=== PATIENT | female | born 1995 | race Caucasian/White ===

== ENCOUNTER 2021-12-13 06:39 | Inpatient (IN) | payer OTHER, SELFPAY ==
[2021-12-13] VITALS (62 sets, daily range): BP systolic 81–125; BP diastolic 42–88; PULSE 86–180; RESP 14–18; TEMP 35.9–36.9; O2SAT 95–100; BMI 31.6
--- NOTE | 2021-12-13 08:05 | LDADM ---
This patient, Georgina Menezes, was admitted to Labor/Delivery/Recovery 105 on 12/13/21 at 06:39. Plans for labor, pain management and were discussed with patient. Patient/family oriented to hospital policies and general routines including ID bracelet, bed and alarms, visiting hours, pain management, procedures, bathroom and other care routines, personal items, smoking policy, room service/diet and guest tray routines, infant security routines, and visiting hours. Patient/Family are encouraged to report perceived risks to care and to ask questions if they do not understand what they are told or what they should do. See OBIX for further documentation.
--- NOTE | 2021-12-13 08:06 | PM.IMHP ---
H&P: HPI History of Present Illness Date/Time: 12/13/21 08:06 Chief Complaint: Intrauterine at term Narrative: 26 yo at 35w2d who presents with SROM. Pt reports SROM around 0430. She reports regular contractions since that time. 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 Pt has limited use of her leg. Due to this, pt is concerned for the ability to have a vaginal delivery. Pt requests a primary delivery. Review of Systems Cardiovascular: Cardiovascular: Denies chest pain, Denies leg edema, Denies palpitations, Denies dyspnea and Denies dyspnea on exertion Respiratory: Respiratory: Denies cough, Denies dyspnea and Denies dyspnea on exertion Gastrointestinal: Gastrointestinal: Denies abdominal pain, Denies constipation, Denies diarrhea, Denies nausea and Denies vomiting Genitourinary: Genitourinary: Denies hematuria, Denies urinary frequency, Denies dysuria, Denies pelvic pain, Denies urinary incontinence and Denies vaginal discharge Neurologic: Reports system reviewed and no additional complaints, except as documented Psychiatric: Psychiatric: Reports no additional psychiatric complaints Endocrine: Endocrine: Denies palpitations PMFSH Social History Social History Smoking status: Never smoker Second hand tobacco smoke exposure: No Substance use: never Spiritual care concerns: No Meds Home Medications and Allergies Home Medications Medication Instructions Recorded Confirmed Type No Home Medications 12/13/21 12/13/21 History Allergies Allergy/AdvReac Type Severity Reaction Status Date / Time ceftazidime Allergy Hives Verified 12/13/21 07:51 Exam Const: General: no acute distress Eyes: EOM: EOMs intact bilaterally Neck: Neck: supple Thyroid: thyroid normal Chest: Breast/axilla inspection: normal inspection of the breasts Breast/axilla palpation: normal palpation of the breasts, normal palpation of the axillae and no axillary lymphadenopathy Resp: Effort & Inspection: normal respiratory effort Auscultation: clear to auscultation bilaterally Cardio: Rate: regular rate Rhythm: regular rhythm GI: Inspection: non-distended and other (Gravid) GI Palp: Yes Soft to palpation, No Tenderness to palpation present (GI) and No Guarding due to palpation present (GI) Auscultation: normal bowel sounds : Speculum Exam - Vagina: No vaginal bleeding OB/external & speculum: external exam normal; No vaginal bleeding Skin: General skin exam: normal color and no rashes or lesions noted Neuro: Cognition (Neuro): normal cognition Speech: normal speech Extrem: General: normal to inspection Psych: Mental Status: mental status grossly normal Affect: normal affect Assessment and Plan Assessment and plan (1) Supervision of high risk , unspecified, third trimester: Code(s): O09.93 - Supervision of high risk , unspecified, third trimester Status: Acute Assessment and Plan: 26 yo G1 at 35w2d admit to L&D routine admission orders Rh + GBS unknown, will start antibiotics FHT cat 1 pt desires primary section recommended vaginal delivery, risks, benefits, alternatives discussed over several outpatient visits. Pt elects to proceed with primary section. (2) premature rupture of membranes: Code(s): O42.919 - premature rupture of membranes, unspecified as to length of time between rupture and onset of labor, unspecified trimester Status: Acute (3) History of osteosarcoma: Code(s): Z85.830 - Personal history of malignant neoplasm of bone Status: Acute
[2021-12-13] MEDS: LACTATED RINGERS 1,000 ML 125 ML IV CONT ×2 (08:38→11:02)
[2021-12-13 08:39] LABS: Basophils Percent Auto 0.4 % (0.2-1.2); Eosinophils Absolute Auto 0.1 K/mm3 (0-0.3); Eosinophils Percent Auto 0.5 % (0-4.4); Hematocrit 39.5 % (37.0-47.0); Hemoglobin 13.2 g/dL (12.0-15.0); Immature Granulocyte Absolute 0.05 K/mm3 (0.00-0.031); Immature Granulocyte Percent A 0.5 % (0-0.5); Immature Platelet Fraction Pct 25.7 % (0.9-11.2); Lymphocytes Absolute Auto 1.66 K/mm3 (0.9-3.2); Lymphocytes Percent Auto 15.5 % (18.3-44.2); Mean Corpuscular HGB Conc 33.4 g/dl (32-36); Mean Corpuscular Hemoglobin 32.3 pg (26-34); Mean Corpuscular Volume 96.6 fl (80-100); Mean Platelet Volume 13.1 fl (7.4-10.4); Monocytes Absolute Auto 0.8 K/mm3 (0.1-0.6); Monocytes Percent Auto 7.1 % (2.6-8.5); Neutrophils Absolute Auto 8.2 K/mm3 (1.3-6.7); Platelet Count Result 148 k/mm3 (150-375); Red Blood Count 4.09 M/mm3 (4.2-5.4); Red Cell Distribution Width 12.3 % (11.5-14.5); White Blood Count 10.7 K/mm3 (4.5-10.0)
[2021-12-13] MEDS: BETAMETHASONE SOD PHOS/ACETATE 30 MG/5 ML VIAL 12 MG IM (08:39)
[2021-12-13] MEDS: fentaNYL CITRATE INJ (*CRX) 100 MCG/2 ML VIAL (08:45)
[2021-12-13] MEDS: AMPICILLIN 2 GM/NS 100 ML 2 GM/100 ML BAG IVPB (09:18)
[2021-12-13] MEDS: ONDANSETRON INJ 4 MG/2 ML VIAL IV PUSH (09:25)
[2021-12-13] MEDS: fentaNYL CITRATE INJ (*CRX) 100 MCG/2 ML VIAL 50 MCG IV PUSH (11:00)
[2021-12-13] MEDS: GENTAMICIN SULFATE INJ 305 MG in DEXTROSE 5% 100 ML 107.63 MG IVPB (11:32)
--- NOTE | 2021-12-13 12:07 | WPDHPUPDATE1 ---
History and Physical Update Update Date/Time: 12/13/21 12:07 History and Physical has been reviewed, including an updated exam of the patient. There are NO changes in the patient's condition. Risks, benefits, and alternatives have been discussed and questions answered. Patient agrees to proceed with procedure.
[2021-12-13] MEDS: CLINDAMYCIN 900 MG/D5W 50 ML 900 MG/50 ML PIGGYBACK 50 MG IVPB (12:30)
[2021-12-13] MEDS: KETOROLAC 30 MG/ML VIAL (*BKC) IV PUSH ×2 (12:45→19:15)
--- NOTE | 2021-12-13 13:39 | W.PM.PROC2 ---
Procedure Note - Detailed Date of Procedure 12/13/21 Pre-op Diagnosis Labor Post-op Diagnosis same Procedure Performed Primary section Surgeon Harmeet Cool MD Anesthesia general Description of Procedure The patient was taken to the operating room. A combined spinal epidural anesthesia was placed. The patient was placed in a supine position with a slight left lateral tilt. A nuñez catheter was placed with return of clear urine. A Bovie grounding pad was placed. Surgical prep was performed and surgical drapes were placed. A surgical time out was performed. A Pfannenstiel skin incision was then made with the scalpel and carried through to the underlying layer of fascia. The fascia was then incised in the midline and the incision was extended laterally with the Weiner scissors. The superior aspect of the fascia was then grasped with the Debi clamps, elevated, and the underlying rectus muscles dissected off bluntly and sharply. Attention was then turned to the inferior aspect of this incision which, in a similar fashion, was grasped, tented up with the Debi clamps, and the rectus muscles dissected off both bluntly and sharply. The rectus muscles were then in the midline. The peritoneum was identified and entered bluntly. The peritoneal incision was then extended superiorly and inferiorly with good visualization of the bladder. The vesico-uterine serosa was identified and dissected to create a bladder flap. The bladder blade was reinserted. The uterus was inspected for rotation. A low-transverse uterine incision was made sharply with the scalpel and entry was made into the uterine cavity. The uterine incision was extended laterally bluntly. The bladder blade was removed and the fetus was delivered atraumatically. The umbilical cord was clamped twice and cut. The was handed off to the waiting staff. At the time of the delivery, the had good color, tone and grimace. The cried with minimal stimulation. A second segment of umbilical cord was clamped and cut for cord blood gasses. Cord blood was collected for determination of the blood type and for direct [place]. The placenta was delivered spontaneously without difficulty. The placenta appeared grossly normal and complete. The uterus was exteriorized and cleared of all clots and debris. The uterine incision was repaired using 0-Monocryl suture in a running fashion. A second layer of 0 Monocryl suture was used in an imbricating fashion to obtain excellent hemostasis and uterine strength. The uterine closure was inspected for hemostasis. The posterior aspect of the uterus and the broad ligaments were inspected and the posterior cul-de-sac cleared of fluid and blood clots. The uterine closure was again inspected and found to be hemostatic. The uterus was returned to the abdominal cavity. The pericolic gutters were inspected and were cleared of all blood clots and debris. The uterine closure was then re inspected to ensure hemostasis as were all subfascial tissues. The peritoneum was closed using 3-0 vicryl in a running fashion. The fascia was reapproximated with 0-vicryl in a running fashion. The subcutaneous tissue was irrigated and hemostasis achieved with electrocautery. It was reapproximated with 3-0 vicryl in a running fashion. The skin was closed with 4-0 vicryl. A sterile dressing was applied to the wound. The patient tolerated the procedure well. Sponge, lap and needle counts were correct times three. The patient was taken to recovery in stable condition and without anticipated complications. Estimated Blood Loss -615.0 Urine Output -200.0 Drains No Packing No Pathology none sent Complications No immediate complications Condition stable Disposition floor ( )
--- NOTE | 2021-12-13 13:43 | PM.OBDSVD ---
DS: Admitting Diagnosis Discharge Date 12/15/21 Admitting Diagnosis intrauterine at term PPROM at 35w OB - DS: Summary OB Procedures : None OB Procedures Intrapartum: OB Procedures: : None Peripartum Data Infant Delivery Method: Section Laceration Description: None Procedures: Procedures Operation Date: 12/13/21 12:00 <No data on this case meets the specified criteria> complications: none Status at Discharge Functional status at discharge: independent ambulation Overall status at discharge: patient is back to baseline Time Spent with Patient Time attestation: Total time spent providing and/or coordinating discharge services: Time spent: Less than 30 minutes DS: Data Data Completed and Pending Pending studies at discharge: Pending at discharge 12/13/21 12:43 Surgical [PTH] Routine Labs on day of discharge: Labs from last 24 hours 12/13/21 12/13/21 12/13/21 08:21 08:21 08:21 WBC 10.7 H RBC 4.09 L Hgb 13.2 Hct 39.5 MCV 96.6 MCH 32.3 MCHC 33.4 RDW 12.3 Plt Count 148 L MPV 13.1 H Immature Gran % (Auto) 0.5 Neut % (Auto) 76.0 H Lymph % (Auto) 15.5 L [place] % (Auto) 7.1 Eos % (Auto) 0.5 Baso % (Auto) 0.4 Lymph # (Auto) 1.66 [place] # (Auto) 0.8 H Eos # (Auto) 0.1 Baso # (Auto) 0.0 Abs Immat Gran (auto) 0.05 H Absolute Neuts (auto) 8.2 H Absolute Nucleated RBC 0.0 Nucleated RBC % 0.0 % Immature Plt Fraction 25.7 H RPR Pending Blood Type A Positive Antibody Screen Negative Discharge Plan Discharge Attending physician on discharge: Harmeet Cool Discharging Clinician: Ken Granados Patient Disposition: Home, Self-Care Activity: as tolerated and pelvic rest Diet: heart healthy Wound Care Instructions: follow printed instructions Discharge Instructions: Education: Mom and Baby Guide Given to: Mother Follow-Up: Call your delivering provider's office for an appointment to be seen in: 4 Weeks Mom [facility] baby [facility] the follow-up appointment. Appointment Date/Time: Thursday, December 16, 2021 at 9:00 am What to expect at your follow-up visit: Physical Assessment Call [phone] if you are unable to keep your appointment time. BREAST CARE: * Wear a snug supportive bra. * For engorgement discomfort: Breast Feeding: * Apply warm moist washcloths * Express milk as needed to relieve engorgement * Wear loose clothing Bottle Feeding: * May apply ice packs * For sore nipples: * Identify correct latch-on * Apply warm moist washcloths before and after nursing * Air dry nipples after nursing * May apply Lansinoh cream to nipples ABDOMINAL INCISION: (if applicable) * Allow incision to air dry * Do NOT use lotions for powders on your incision * When showering, allow soap and water to run over the incision, but do not wash incision PERINEAL CARE: * Until bleeding stops, use your solange bottle after urinating * Change your pad frequently throughout the day * You may take sitz baths several times a day (fill your bathtub with warm water and soak for 20 minutes.) Do NOT bathe in the water * No tub baths until seen by your physician - You may shower ACTIVITY: * Rest as much as possible. * Do not exercise or lift anything heavier than your baby (such as laundry or other children.) * Avoid stairs or driving as much as possible. * Do not put anything into the vagina. No douching, tampons, or sexual activity until seen by physician. NOTIFY PHYSICIAN IF YOU HAVE ANY QUESTIONS OR IF ANY OF THE FOLLOWING SYMPTOMS OCCUR: * If your episiotomy or incision becomes red, swollen, or more painful than what you have experienced in the hospital. * If your vaginal bleeding becomes foul smelling. * If y
[2021-12-13] MEDS: diphenhydrAMINE HCl INJ 50 MG/ML VIAL 25 MG IV PUSH (14:29)
--- NOTE | 2021-12-13 15:48 | PC.NURSE ---
Patient transferred to post room #286 per stretcher from labor and delivery. Support person present. Oriented to unit, room, information board, rooming in, admission packet and security measures. Patient verbalizes understanding.
[2021-12-13] MEDS: OXYTOCIN 30 UNITS/NS 500 ML 30 UNITS/500 ML BAG 125 UNITS IV CONT (17:24)
[2021-12-13] MEDS: DEXTROSE 5%/0.45% SOD CHL 1,000 ML 125 ML IV CONT (17:25)
[2021-12-13] MEDS: LORATADINE 10 MG TABLET PO (19:14)
[2021-12-13] MEDS: HYDROcodone/acetaminophen (*CRX) 10-325 MG TABLET 1 TAB PO (23:06)
[2021-12-14] MEDS: KETOROLAC 30 MG/ML VIAL (*BKC) IV PUSH (02:11)
[2021-12-14] MEDS: HYDROcodone/acetaminophen (*CRX) 10-325 MG TABLET 1 TAB PO ×6 (02:11→23:31)
[2021-12-14 04:30] VITALS: BP 97/55; PULSE 98; RESP 16; TEMP 37; O2SAT 96
[2021-12-14 05:54] LABS: Basophils Percent Auto 0.2 % (0.2-1.2); Hemoglobin 10.2 g/dL (12.0-15.0); Immature Granulocyte Absolute 0.11 K/mm3 (0.00-0.031); Immature Granulocyte Percent A 0.6 % (0-0.5); Immature Platelet Fraction Pct 28.2 % (0.9-11.2); Lymphocytes Absolute Auto 1.02 K/mm3 (0.9-3.2); Lymphocytes Percent Auto 5.4 % (18.3-44.2); Mean Corpuscular HGB Conc 32.9 g/dl (32-36); Mean Corpuscular Volume 100.3 fl (80-100); Mean Platelet Volume 13.9 fl (7.4-10.4); Monocytes Absolute Auto 1.4 K/mm3 (0.1-0.6); Monocytes Percent Auto 7.4 % (2.6-8.5); Neutrophils Absolute Auto 16.2 K/mm3 (1.3-6.7); Neutrophils Percent Auto 86.4 % (45.5-73.1); Platelet Count Result 164 k/mm3 (150-375); Red Blood Count 3.09 M/mm3 (4.2-5.4); Red Cell Distribution Width 12.6 % (11.5-14.5); White Blood Count 18.8 K/mm3 (4.5-10.0)
[2021-12-14] MEDS: DOCUSATE SODIUM 100 MG CAPSULE PO ×2 (07:19→20:27)
[2021-12-14] MEDS: MULTIVIT/MIN/PREN/FOL AC/IRON TABLET 1 TAB PO (07:19)
[2021-12-14] MEDS: SIMETHICONE 80 MG TAB.CHEW PO (07:20)
[2021-12-14 07:21] VITALS: BP 90/49; PULSE 102; RESP 12; TEMP 36.4; O2SAT 96
[2021-12-14] MEDS: IBUPROFEN 600 MG TABLET PO ×3 (07:21→20:28)
--- NOTE | 2021-12-14 08:37 | P.PNOB_ITS ---
OB - PN: Subj Subjective Date/time seen: 12/14/21 08:37 Patient comments: no complaints and pain well controlled baby status: doing well OB - PN: Obj Data Labs CBC & Chem 7: 12/14/21 04:39 Labs: Laboratory Results - last 24 hr 12/13/21 12/13/21 12/14/21 08:21 08:21 04:39 WBC 10.7 H 18.8 H RBC 4.09 L 3.09 L Hgb 13.2 10.2 L D Hct 39.5 31.0 L MCV 96.6 100.3 H MCH 32.3 33.0 MCHC 33.4 32.9 RDW 12.3 12.6 Plt Count 148 L 164 MPV 13.1 H 13.9 H Immature Gran % (Auto) 0.5 0.6 H Neut % (Auto) 76.0 H 86.4 H Lymph % (Auto) 15.5 L 5.4 L [place] % (Auto) 7.1 7.4 Eos % (Auto) 0.5 0.0 Baso % (Auto) 0.4 0.2 Lymph # (Auto) 1.66 1.02 [place] # (Auto) 0.8 H 1.4 H Eos # (Auto) 0.1 0.0 Baso # (Auto) 0.0 0.0 Abs Immat Gran (auto) 0.05 H 0.11 H Absolute Neuts (auto) 8.2 H 16.2 H Absolute Nucleated RBC 0.0 0.0 Nucleated RBC % 0.0 0.0 % Immature Plt Fraction 25.7 H 28.2 H Blood Type A Positive Antibody Screen Negative OB - PN A/P Plan day: 1 Plan: routine care Comments: Will proceed with circumcision secondary to maternal choice Time Spent With Patient Time: Total time spent is greater than 50% in coordination of care (as documented) at patient's floor/unit and/or counseling patient: Time with patient: less than 15 minutes Review of Systems Review of Systems: All systems reviewed & are unremarkable except as noted in HPI and below Exam Const: General: no acute distress Eyes: General: appearance normal, both eyes and all related structures Neck: Neck: supple and no JVD Thyroid: thyroid normal Resp: Effort & Inspection: normal respiratory effort Auscultation: clear to auscultation bilaterally Cardio: Rate: regular rate Rhythm: regular rhythm GI: Inspection: normal to inspection and incision (Clean dry and intact) : General: Yes bladder normal to palpation External Female Exam: normal external appearance Speculum Exam - Vagina: normal vaginal discharge and No vaginal bleeding Speculum Exam - Cervix: nontender Bimanual exam- vagina & uterus: bladder normal to palpation and No Cervical tenderness present OB/external & speculum: No vaginal bleeding Skin: General skin exam: no rashes or lesions noted Extrem: General: normal to inspection and no edema Psych: Mental Status: mental status grossly normal Affect: normal affect
--- NOTE | 2021-12-14 10:31 | WPDANLDPN2 ---
Anes-Prog Note L&D Date/Time: 12/14/21 10:31 Comfortable throughout: section Neuraxial method: spinal Epidural/Spinal procedure site: clean & non-tender Neuro status: Neuro function grossly intact. Cardiovascular status: normal Respiratory status: normal Airway patency: baseline Mental status: baseline Post-Op hydration status: normal Vital Signs: Last Vital Signs Temp 36.4 C 12/14/21 07:21 Pulse 102 H 12/14/21 07:21 Resp 12 12/14/21 07:21 BP 90/49 L 12/14/21 07:21 Pulse Ox 96 12/14/21 07:21 Pain score (VAS): 2/10 I/O: Intake & Output 12/13/21 12/14/21 12/14/21 23:59 07:59 15:59 Intake Total 500 Output Total 475 300 Balance -475 200 Post-procedural complaints: none Patient feedback: Patient satisfied with anesthetic care.
--- NOTE | 2021-12-14 10:32 | WPDANLDNPN2 ---
Anes-Prog Note L&D-Neuraxial Date/Time: 12/14/21 10:32 Neuraxial medications: intrathecal PF morphine Opiod-related complaints: none Patient feedback: Patient satisfied with post-operative pain management.
[2021-12-14 20:30] VITALS: BP 98/54; PULSE 98; RESP 16; TEMP 36.7; O2SAT 97
[2021-12-15] MEDS: SIMETHICONE 80 MG TAB.CHEW PO (03:18)
[2021-12-15] MEDS: HYDROcodone/acetaminophen (*CRX) 10-325 MG TABLET 1 TAB PO ×2 (03:18→10:30)
[2021-12-15] MEDS: IBUPROFEN 600 MG TABLET PO ×2 (03:18→10:29)
--- NOTE | 2021-12-15 10:01 | PM.DS ---
DS: Admitting Diagnosis Discharge Date 12/15/21 Admitting Diagnosis 35 and 0.5 weeks with rupture membranes DS: Summary Hospital Course Hospital Course: The patient was admitted with spontaneous rupture membranes at 35 and half weeks . She underwent low-transverse section. Her postop course was unremarkable. The baby did well and was circumcised. She remained afebrile. She was up, voiding without difficulty, ambulating, generally without complaints. Time Spent with Patient Time attestation: Total time spent providing and/or coordinating discharge services: Exam Const: General: no acute distress Eyes: General: appearance normal, both eyes and all related structures Neck: Neck: supple and no JVD Thyroid: thyroid normal Resp: Effort & Inspection: normal respiratory effort Auscultation: clear to auscultation bilaterally Cardio: Rate: regular rate Rhythm: regular rhythm GI: Inspection: non-distended GI Palp: Yes Soft to palpation, No Tenderness to palpation present (GI) and No Guarding due to palpation present (GI) Auscultation: normal bowel sounds : General: Yes bladder normal to palpation External Female Exam: normal external appearance Speculum Exam - Vagina: normal vaginal discharge and No vaginal bleeding Speculum Exam - Cervix: nontender Bimanual exam- vagina & uterus: bladder normal to palpation and No Cervical tenderness present OB/external & speculum: No vaginal bleeding Skin: General skin exam: no rashes or lesions noted Extrem: General: normal to inspection and no edema Psych: Mental Status: mental status grossly normal Affect: normal affect DS: Data Data Completed and Pending Pending studies at discharge: Pending at discharge 12/13/21 12:43 Surgical [PTH] Routine Discharge Plan Discharge Attending physician on discharge: Harmeet Cool Discharging Clinician: Ken Granados Patient Disposition: Home, Self-Care Activity: as tolerated and pelvic rest Diet: heart healthy Wound Care Instructions: follow printed instructions Patient Instructions: Antibiotic Form, (DC) Stand Alone Forms: General Discharge Information Follow-up/Referrals: Harmeet Cool MD [Physician] - 4 Weeks Discharge Medications: New hydrocodone-acetaminophen 5-325 mg tablet 1 tablet PO Q6H PRN (Reason: pain) Qty: 28 RF: 0 Continued 28-800 mg-mcg Tablet 1 tablet PO DAILY RF: 0 Date of admission: 12/13/21 06:39 Primary Care Provider: YovaniLilly Admitting Provider: Harmeet Cool Attending physician on admission: Harmeet Cool Condition: Stable
--- NOTE | 2021-12-15 10:03 | PM.OBPNVD ---
OB - PN: Subj Subjective Date/time seen: 12/15/21 10:03 Patient comments: no complaints and pain well controlled baby status: doing well and nursing well OB - PN: Obj Data Labs CBC & Chem 7: 12/14/21 04:39 OB - PN A/P Plan day: 2 Plan: routine care, discharge home and follow up 6 weeks (4 weeks) Time Spent With Patient Time: Total time spent is greater than 50% in coordination of care (as documented) at patient's floor/unit and/or counseling patient: Time with patient: less than 15 minutes Review of Systems Review of Systems: All systems reviewed & are unremarkable except as noted in HPI and below Exam Const: General: no acute distress Eyes: General: appearance normal, both eyes and all related structures Neck: Neck: supple and no JVD Thyroid: thyroid normal Resp: Effort & Inspection: normal respiratory effort Auscultation: clear to auscultation bilaterally Cardio: Rate: regular rate Rhythm: regular rhythm GI: Inspection: non-distended GI Palp: Yes Soft to palpation, No Tenderness to palpation present (GI) and No Guarding due to palpation present (GI) Auscultation: normal bowel sounds : General: Yes bladder normal to palpation External Female Exam: normal external appearance Speculum Exam - Vagina: normal vaginal discharge and No vaginal bleeding Speculum Exam - Cervix: nontender Bimanual exam- vagina & uterus: bladder normal to palpation and No Cervical tenderness present OB/external & speculum: No vaginal bleeding Skin: General skin exam: no rashes or lesions noted Extrem: General: normal to inspection and no edema Psych: Mental Status: mental status grossly normal Affect: normal affect
[2021-12-15 10:28] VITALS: BP 105/60; PULSE 98; RESP 16; TEMP 36.4; O2SAT 97
[2021-12-15] MEDS: MULTIVIT/MIN/PREN/FOL AC/IRON TABLET 1 TAB PO (10:28)
[2021-12-15] MEDS: DOCUSATE SODIUM 100 MG CAPSULE PO (10:28)
[2021-12-15] MEDS: MEASLES,MUMPS,RUBELLA VACCINE 0.5 ML VIAL SUB-Q (14:32)
--- NOTE | 2021-12-15 17:02 | PC.NURSE ---
1100 Patient viewed the discharge video Mother & Baby Care, The First Two Weeks . Patient was given the opportunity and encouraged to ask questions. Patient verbalized understanding of information shared and has been given the mother/baby guide for home reference.
[2021-12-16 09:03] VITALS: BP 115/73; PULSE 102; RESP 20; TEMP 36.6; O2SAT 99
[2021-12-16 11:59] LABS: Rapid Plasma Reagin Non-Reactive (NonReactive)
== END 2021-12-15 14:45 | disposition home or self-care (01) | DRG 540 ==
LOC: ANHLDR 13:51 → ANHOB2 12-15 12:13 → ANHLDR 12-17 09:35 → ANHOB2 12-17 09:35
PROVIDERS: Admitting Provider Student in an Organized Health Care Education/Training Program; PCP Nurse Practitioner Adult Health; Visit Provider Obstetrics & Gynecology
PROC: 10D00Z1 Extraction of Products of Conception, Low, Open Approach (ICD-10-PCS; CPT 59514; principal; 2021-12-13 12:00)
DX: O42.913 Preterm premature rupture of membranes, unspecified as to length of time between rupture and onset of labor, third trimester (principal); O76 Abnormality in fetal heart rate and rhythm complicating labor and delivery; O69.81X0 Labor and delivery complicated by cord around neck, without compression, not applicable or unspecified; Z85.830 Personal history of malignant neoplasm of bone; Z3A.35 35 weeks gestation of pregnancy; Z37.0 Single live birth
CPT/HCPCS: 36415; 84112; 85025; 85055; 86592; 86850; 86900; 86901; 88307; 90710; A9270; J0131; J0290; J0702; J1200; J1580; J1885; J2274; J2370; J2405; J2590; J3010; J7120

== ENCOUNTER 2021-12-19 12:16 | Inpatient (IN) | payer OTHER, SELFPAY ==
[2021-12-19] VITALS (9 sets, daily range): BP systolic 100–124; BP diastolic 66–85; PULSE 89–119; RESP 14–25; TEMP 36.6; O2SAT 94–100; BMI 29.2
--- NOTE | ~2021-12-19 | CT_ITS ---
EXAMINATION: CTA chest PE protocol EXAM DATE: 12/19/2021 14:10 INDICATION: shortness of breath, post . TECHNIQUE: Spiral CTA of the chest (pulmonary arteries) was performed with 100 cc Omnipaque 350 intr avenous contrast injection. Images were acquired during the pulmonary arterial phase. Coronal maxi mum intensity projection 3D-reconstructions were created by the technologist on dedicated workstation . Axial, coronal and sagittal reformatted images were reviewed. The dose-length product (DLP) for t his examination was 314.23 mGy-cm. The exposure was tailored according to patient size (auto mA exp osure control), and iterative reconstruction (ASIR) was used as additional dose reduction technique. There is no prior study for comparison. FINDINGS: Pulmonary arteries are well opacified and without intraluminal filling defects. No thora cic aortic dissection. The lungs are clear. Small to moderate right, small left pleural effusions. Mild cardiomegaly. Interlobular septal thickening and some groundglass density most consistent with mild pulmonary edema. Pneumonia not excludable. Tracheobronchial tree is patent. There is no media stinal, hilar or axillary lymphadenopathy. There is no pneumothorax. No evidence of coronary anders rial calcification. Cholecystectomy clips. There is thoracic spondylosis without osteoblastic or os teolytic lesions identified. IMPRESSION: 1. Findings consistent with mild CHF exacerbation. 2. No pulmonary emboli. Reviewed, dictated and finalized at location B. WELDER
--- NOTE | ~2021-12-19 | US_ITS ---
EXAMINATION: US venous doppler LE EXAM DATE: 12/20/2021 09:36 INDICATION: Bilateral leg edema. TECHNIQUE: Multiple grayscale, color flow and Doppler images of the lower extremity deep venous syste ms bilaterally were obtained and reviewed. There is no prior study for comparison. FINDINGS: Right side: The right common femoral, femoral and profunda veins demonstrate normal color flow, respi ratory variation, augmentation and compressibility. Compressibility, color flow confirmed within the right popliteal, posterior tibial, peroneal, and greater saphenous veins. Left side: The left common femoral, femoral and profunda veins demonstrate normal color flow, respira tory variation, augmentation and compressibility. Compressibility, color flow confirmed within the l eft popliteal, posterior tibial, peroneal, and greater saphenous veins. IMPRESSION: 1. No lower extremity deep venous thrombosis bilaterally. Reviewed, dictated and finalized at location B. D SALES EXECUTIVE
--- NOTE | ~2021-12-19 | XR_ITS ---
EXAMINATION: XR chest 2V DATE: 12/19/2021 12:37 INDICATION: Shortness of breath and chest pain one week . TECHNIQUE: frontal view of the chest was obtained. COMPARISON: Chest radiograph dated 05/18/2014 FINDINGS: Mild cardiomegaly. Increased interstitial pattern and streaky opacities in the bilateral lower lung z ones. Tiny bilateral pleural effusions with blunting at the posterior sulci. No pneumothorax. Cholec ystectomy clips in right upper quadrant. IMPRESSION: 1. Suggestion of mild congestive heart failure with mild cardiomegaly, mild pulmonary edema in the lo wer lung zones and tiny bilateral pleural effusions. Reviewed, dictated and finalized at location A. ER IMPRESSION: 1. Suggestion of mild congestive heart failure with mild cardiomegaly, mild pul monary edema in the lower lung zones and tiny bilateral pleural effusions.
--- NOTE | 2021-12-19 12:22 | ECG_ITS ---
Measurements Intervals Wright Rate: 115 P: 40 MD: 125 QRS: 23 QRSD: 78 T: 46 QT: 332 QTc: 460 Interpretive Statements SINUS TACHYCARDIA POSSIBLE LEFT ATRIAL ENLARGEMENT BORDERLINE R WAVE PROGRESSION, ANTERIOR LEADS BASELINE ARTIFACT- I, II, III, AVR, AVL, AVF, V1, V3-V6 ABNORMAL ECG Electronically Signed On 12-19-2021 12:40:39 OPERATION SPECIALIST by Pb Rangel D.O.
[2021-12-19 13:12] LABS: Basophils Absolute Auto 0.1 K/mm3 (0.0-0.1); Basophils Percent Auto 0.6 % (0.2-1.2); Eosinophils Absolute Auto 0.4 K/mm3 (0-0.3); Eosinophils Percent Auto 3.9 % (0-4.4); Hematocrit 33.2 % (37.0-47.0); Hemoglobin 10.8 g/dL (12.0-15.0); Immature Granulocyte Absolute 0.21 K/mm3 (0.00-0.031); Immature Granulocyte Percent A 2.1 % (0-0.5); Lymphocytes Percent Auto 14.1 % (18.3-44.2); Mean Corpuscular HGB Conc 32.5 g/dl (32-36); Mean Corpuscular Hemoglobin 32.9 pg (26-34); Mean Corpuscular Volume 101.2 fl (80-100); Mean Platelet Volume 12.1 fl (7.4-10.4); Monocytes Absolute Auto 0.7 K/mm3 (0.1-0.6); Monocytes Percent Auto 6.8 % (2.6-8.5); Neutrophils Absolute Auto 7.2 K/mm3 (1.3-6.7); Neutrophils Percent Auto 72.5 % (45.5-73.1); Platelet Count Result 245 k/mm3 (150-375); Red Blood Count 3.28 M/mm3 (4.2-5.4); Red Cell Distribution Width 13.2 % (11.5-14.5); White Blood Count 9.9 K/mm3 (4.5-10.0)
[2021-12-19 13:23] LABS: Lactic Acid Reflex 2.2 mmol/L (0.7-2.1)
[2021-12-19 13:24] LABS: Alanine Aminotransferase 20 U/L (4-35); Albumin Level 3.5 g/dL (3.5-5.1); Alkaline Phosphatase 84 U/L (38-126); Anion Gap 10 mmol/L (8-16); Aspartate Amino Transferase 18 U/L (14-36); Bilirubin,Total 0.3 mg/dL (0.2-1.3); Blood Urea Nitrogen 17 mg/dL (7-17); Calcium 8.8 mg/dL (8.4-10.2); Carbon Dioxide 26 mmol/L (22-30); Chloride 101 mmol/L (98-107); Estimated CRCL calculation 110 ml/min; Estimated Glomerular Filt Rate > 60; Glucose 91 mg/dL (65-110); Magnesium 1.4 mg/dL (1.6-2.3); Potassium 3.6 mmol/L (3.4-5.0); Sodium 137 mmol/L (137-145)
[2021-12-19 13:36] LABS: NT Pro B Type Natriuretic Pept 2360 pg/mL (5-100); Troponin I < 0.012 ng/mL (0.000-0.034)
[2021-12-19 13:38] LABS: Add Urine Microscopic? YES; Appearance Urine Clear (Clear); Bacteria Urine Trace /hpf; Bilirubin Urine Negative (Negative); Blood Urine 2+ (Negative); Color Urine Straw (Yellow); Glucose Urine UA Negative (Negative); Ketones Urine Negative (Negative); Leukocyte Esterase Ur Trace LEU/UL (Negative); Nitrate Urine Negative (Negative); Protein Urine Negative (Negative); RBC Urine 0-2 /hpf (0-2); Specific Grav Ur 1.006 (1.001-1.035); Squamous Epithelial Cell Urine Many /hpf (Few); Urobilinogen Urine Negative mg/dL (<2.0)
--- NOTE | 2021-12-19 14:34 | ED.GENADULT ---
HPI - General Adult General Chief complaint: Shortness of Breath/Dyspnea Stated complaint: sob after c -section last week Time Seen by Provider: 12/19/21 12:33 History of Present Illness HPI narrative: Patient is a 26-year-old female who presents the emergency department with chief complaint of shortness of breath. Patient states that she is about a week after a patient states that she feels as though her body is swollen and reports that she has shortness of breath worse with exertion. The patient reports that she had some tightness in her chest and fullness the patient states that she decided to come to the emergency department after she has been having continual tightness in her chest. Patient reports no prior history of congestive heart failure no prior history of cardiac disease. Related Data Home Medications Medication Instructions Recorded Confirmed 1 tablet PO DAILY 12/13/21 12/13/21 Allergies Allergy/AdvReac Type Severity Reaction Status Date / Time ceftazidime Allergy Hives Verified 12/13/21 07:51 Review of Systems Review of Systems: A 10 system review of systems was completed on the patient and is negative except for what is stated in the HPI. Nursing and ancillary documentation was reviewed. [facility] Social History Social History Smoking status: Never smoker Second hand tobacco smoke exposure: No Substance use: never Spiritual care concerns: No Exam Narrative: GENERAL: Well-appearing, well-nourished, and in no acute distress. HEAD: Normocephalic, atraumatic. EYES: PERRLA and EOMI. ENT: Nares clear, no rhinorrhea or epistaxis. Mucous membranes moist. NECK: Supple. CHEST: Clear to auscultation. No respiratory distress. HEART: Regular rate and rhythm. No murmur heard. Normal peripheral pulses. ABDOMEN: Soft, nontender, nondistended, normal active bowel sounds. EXTREMITIES: Normal range of motion. No edema. SKIN: Warm, dry, no rash. NEURO: No focal deficits. Alert and oriented x3. PSYCH: Normal mood and affect. Course Course Emergency Course: EKG sinus tachycardia rate of [address] elevation or ST depression Vital Signs Vital signs: Vital Signs Temperature 36.6 C 12/19/21 12:19 Pulse Rate 119 H 12/19/21 12:19 Respiratory Rate 25 H 12/19/21 12:19 Blood Pressure 124/72 12/19/21 12:19 Pulse Oximetry 100 12/19/21 12:19 Temperature 36.6 C 12/19/21 12:19 Pulse Rate 114 H 12/19/21 14:33 Respiratory Rate 14 12/19/21 14:33 Blood Pressure 108/69 12/19/21 14:33 Pulse Oximetry 97 12/19/21 14:33 Medical Decision Making Vital Signs Vital Signs: Vital Signs Temperature 36.6 C 12/19/21 12:19 Pulse Rate 119 H 12/19/21 12:19 Respiratory Rate 25 H 12/19/21 12:19 Blood Pressure 124/72 12/19/21 12:19 Pulse Oximetry 100 12/19/21 12:19 Temperature 36.6 C 12/19/21 12:19 Pulse Rate 114 H 12/19/21 14:33 Respiratory Rate 14 12/19/21 14:33 Blood Pressure 108/69 12/19/21 14:33 Pulse Oximetry 97 12/19/21 14:33 Lab Data Result diagrams: 12/19/21 12:56 12/19/21 12:56 Labs: Lab Results 12/19/21 12/19/21 12/19/21 Range/Units 12:56 12:56 12:56 WBC 9.9 (4.5-10.0) K/mm3 RBC 3.28 L (4.2-5.4) M/mm3 Hgb 10.8 L (12.0-15.0) g/dL Hct 33.2 L (37.0-47.0) % MCV 101.2 H (80-100) fl MCH 32.9 (26-34) pg MCHC 32.5 (32-36) g/dl RDW 13.2 (11.5-14.5) % Plt Count 245 (150-375) k/mm3 MPV 12.1 H (7.4-10.4) fl Immature Gran % (Auto) 2.1 H (0-0.5) % Neut % (Auto) 72.5 (45.5-73.1) % Lymph % (Auto) 14.1 L (18.3-44.2) % [place] % (Auto) 6.8 (2.6-8.5) % Eos % (Auto) 3.9 (0-4.4) % Baso % (Auto) 0.6 (0.2-1.2) % Lymph # (Auto) 1.40 (0.9-3.2) K/mm3 [place] # (Auto) 0.7 H (0.1-0.6) K/mm3 Eos # (Auto) 0.4 H (0-0.3) K/mm3 Baso # (Auto) 0.1 (0.0-0.1
[2021-12-19] MEDS: diphenhydrAMINE HCl INJ 50 MG/ML VIAL IV PUSH (14:41)
--- NOTE | 2021-12-19 15:27 | PM.IMHP ---
H&P: HPI History of Present Illness Date/Time: 12/19/21 15:27 Chief Complaint: shortness of breath Narrative: 26 yo who presents to the ED with complaint of shortness of breath. Pt underwent primary on 12/13/21. Pt was discharged home on 12/15/21. Pt was not tachycardic at that time. She presented to the hosptial on 12/16 for PP RN check and was noted to be mildly tachycardic at that time. Pt was asymptomatic at that time. Pt states that last night she noticed that she was unusually out of breathe after getting into bed. She states she continued to be SOB when she awoke this AM. She denies any CP, fevers, chills, nausea vomiting. Of note, pt has a history of osteosarcoma. Pt reports she had cardiomyopathy after chemotherapy at that time. Pt had X-ray that showed mild cardiomegaly and mild pleural effusions. She had a negative workup for PE. Review of Systems Cardiovascular: Cardiovascular: Denies chest pain, Denies leg edema, Denies palpitations, Denies dyspnea and Denies dyspnea on exertion Respiratory: Respiratory: Denies cough, Denies dyspnea and Denies dyspnea on exertion Gastrointestinal: Gastrointestinal: Denies abdominal pain, Denies constipation, Denies diarrhea, Denies nausea and Denies vomiting Genitourinary: Genitourinary: Denies hematuria, Denies urinary frequency, Denies dysuria, Denies pelvic pain, Denies urinary incontinence and Denies vaginal discharge Neurologic: Reports system reviewed and no additional complaints, except as documented Psychiatric: Psychiatric: Reports no additional psychiatric complaints Endocrine: Endocrine: Denies palpitations [facility] Social History Social History Smoking status: Never smoker Second hand tobacco smoke exposure: No Substance use: never Spiritual care concerns: No Meds Home Medications and Allergies Home Medications Medication Instructions Recorded Confirmed Type 1 tablet PO DAILY 12/13/21 12/13/21 History hydrocodone-acetaminophen 1 tablet PO Q6H PRN #28 tablet 12/13/21 Rx Allergies Allergy/AdvReac Type Severity Reaction Status Date / Time ceftazidime Allergy Hives Verified 12/13/21 07:51 Vital Signs Vital Signs - 24 hr 12/19/21 12:19 12/19/21 13:38 12/19/21 14:33 Temperature 36.6 C Pulse Rate 119 H 111 H 114 H Respiratory Rate 25 H 14 Blood Pressure 124/72 108/69 Pulse Oximetry 100 97 Exam Const: General: healthy appearing, alert, anxious and other (tearful) Eyes: EOM: EOMs intact bilaterally Neck: Neck: supple Thyroid: thyroid normal Chest: Breast/axilla inspection: normal inspection of the breasts Breast/axilla palpation: normal palpation of the breasts, normal palpation of the axillae and no axillary lymphadenopathy Resp: Effort & Inspection: normal respiratory effort Auscultation: clear to auscultation bilaterally Cardio: Rate: tachycardic GI: Inspection: non-distended and incision (pfannenstiel incision noted) GI Palp: Yes Soft to palpation, No Tenderness to palpation present (GI) and No Guarding due to palpation present (GI) Auscultation: normal bowel sounds Skin: General skin exam: normal color and no rashes or lesions noted Neuro: Cognition (Neuro): normal cognition Speech: normal speech Extrem: General: normal to inspection and edema left Psych: Mental Status: mental status grossly normal Affect: normal affect H&P: Results Labs Labs: Short CBC 12/19/21 Range/Units 12:56 WBC 9.9 (4.5-10.0) K/mm3 Hgb 10.8 L (12.0-15.0) g/dL Hct 33.2 L (37.0-47.0) % Plt Count 245 (150-375) k/mm3 BMP 12/19/21 12:56 Sodium 137 Potassium 3.6 Chloride 101 Carbon Dioxide 26 BUN 17 Creatinine 0.60 L Glucose 91 Calcium 8.8 Cardiac Enzymes 12/19/21 Range/Units 12:56 Troponin I < 0.012 (0.000-0.034) ng/mL Liver Function 12/19/21 Range/Units 12:56 Total Bilirubin 0.3 (0.2-
--- NOTE | 2021-12-19 15:30 | WPDCN ---
Assessment and Plan Assessment and plan (1) Volume overload: Code(s): E87.70 - Fluid overload, unspecified Status: Acute (2) History of cardiomyopathy: Code(s): Z86.79 - Personal history of other diseases of the circulatory system Status: Acute (3) Hypomagnesemia: Code(s): E83.42 - Hypomagnesemia Status: Acute (4) Normocytic anemia: Code(s): D64.9 - Anemia, unspecified Status: Acute Additional Plan Patient has a history of chemotherapy-induced cardiomyopathy as detailed in the HPI though she has been cleared by her pediatric nephrologist and has been off of enalapril since 2019. Now presenting with volume overload and findings of CHF on imaging with tiny pleural effusions and mild cardiomegaly. May be related to fluid shifts from though will need an echocardiogram to evaluate her ejection fraction. She will be diuresed with close monitoring of volume status. She has been started on metoprolol tartrate 12.5 mg p.o. b.i.d. due to persistent tachycardia. Her magnesium will be replaced and monitored. Hemoglobin and hematocrit are stable on review of those drawn 5 days ago. Thank you for allowing us to participate in this patient's care. Please do not hesitate to contact us with any questions. Supervising physician for this medical consultation is Dr. Melly Milligan. [facility] Data of Consult Date/Time: 12/19/21 15:30 Requesting Physician: Harmeet Cool MD Primary Care Provider: Lilly Pina, TAPE MAKER Consult Narrative Narrative: This is a very pleasant 26-year-old female with history of osteosarcoma at the age of 10 with subsequent mild cardiomyopathy related to chemotherapy per patient report who presented to the emergency department earlier today from home for evaluation of shortness of breath and chest pain. She is 1 week and gave to her 1st child, a son, via last Thursday. She reports an uncomplicated . Over the past couple of days she has developed swelling in her ankles and last evening while moving in bed she developed acute dyspnea with feelings of racing heart that persisted through today and thus she came in for evaluation. CTA of the chest done on arrival showed findings consistent with mild congestive heart failure exacerbation; no pulmonary emboli were identified. She has been admitted overnight for diuresis an echocardiogram in a.m. per Dr. Cool. At the time my evaluation she is resting comfortably but is understandably upset that she is having to be admitted to the hospital. She denies fever, chills, sweats, cold and flu symptoms, current chest pain, pleuritic pain, orthopnea, PND, nausea, and vomiting. Review of Systems Review of Systems: Twelve systems were reviewed and are negative except for as per HPI. [facility] Past Medical History Medical History (Updated 12/19/21 @ 23:32 by Cayla Figueroa PA-C) Chemotherapy induced cardiomyopathy Followed by relay associate at [facility] until 2019. Previously on enalapril. Osteosarcoma of right femur (2004) Surgical History Surgical History (Updated 12/19/21 @ 23:25 by Cayla Figueroa PA-C) History of section (12/13/21) History of cholecystectomy History of orthopedic surgery 5 surgeries on the right lower extremity including right knee replacement related to osteosarcoma diagnosed at the age of 10. Family History Family History (Updated 12/19/21 @ 23:26 by Cayla Figueroa PA-C) Other Family history non-contributory Social History Social History (Updated 12/19/21 @ 23:26 by Cayla Figueroa PA-C) Social History: The patient lives with her and son in [place]. Nonsmoker. No alcohol or illicit substance abuse. She designates her Jeffrey or her mother Amada Menezes as her surrogate decision makers. Code status: Full code. Meds Home M
[2021-12-19] MEDS: FUROSEMIDE INJ 40 MG/4 ML VIAL IV PUSH ×2 (15:44→22:19)
[2021-12-19 16:09] LABS: Reflex Lactic Acid Yes or No Add Lactic
[2021-12-19 16:46] LABS: Lactic Acid 1.1 mmol/L (0.7-2.1)
[2021-12-19] MEDS: METOPROLOL TARTRATE 12.5 MG TABLET PO (22:19)
--- NOTE | 2021-12-19 22:26 | PC.NURSE ---
This patient, Georgina Menezes, was admitted to 3 [facility] Surg Room 326-01. Patient/family oriented to hospital policies and general routines including ID bracelet, bed and alarms, visiting hours, pain management, procedures, bathroom and other care routines, personal items, smoking policy, room service/diet, and visiting hours. Information on how to activate the Rapid Response Team has been discussed. Patient/Family are encouraged to report perceived risks to care and to ask questions if they do not understand what they are told or what they should do.
[2021-12-20] VITALS (10 sets, daily range): BP systolic 95–106; BP diastolic 54–75; PULSE 85–110; RESP 12–18; TEMP 36.3–37.1; O2SAT 96–98
[2021-12-20] MEDS: diphenhydrAMINE HCl INJ 50 MG/ML VIAL 25 MG IV PUSH ×3 (02:54→22:55)
[2021-12-20] MEDS: MAGNESIUM SULF 2 GM/WATER 50ML 2 GM/50 ML BAG IVPB (02:55)
--- NOTE | 2021-12-20 06:00 | ECHO_ITS ---
Patient Info Name: Georgina Menezes Age: 26 years : 1995 Gender: Female Ht: 62 in Wt: 149 lbs BSA: 1.74 m2 HR: 81 bpm BP: 109 / 56 mmHg Technical Quality: Fair Exam Date: 12/20/2021 9:39 AM Exam Location: [facility] Patient Status: Inpatient Admit Date: 12/19/2021 Staff Ordering Physician: Edward Summers MD Email Administrator: Yunior Walters, NITHYA, RT Attending Provider: Harmeet Cool MD Referring Physician: Kristopher DUPREE; Exam Type: CA echo dop color flow w con Study Info Indications R06.00 - Dyspnea, unspecified Complete two-dimensional, color flow and Doppler transthoracic echocardiogram is performed with contrast to opacify the left ventricle and to improve the deliniation of the left ventricle endocardial borders. Strain analysis performed. Summary 1. Left ventricular chamber dimension is severely enlarged. 2. Definity contrast administered improved wall motion interpretation. 3. Left ventricular systolic function is severely reduced, estimated at 25-30%. 4. The left ventricular diastolic function is grade III diastolic dysfunction. 5. E/e' 10 is mildly elevated. 6. Left atrial chamber dimension is mildly enlarged. 7. There is mild mitral valve regurgitation. 8. There is trace tricuspid valve regurgitation. 9. No pulmonary hypertension, estimated pulmonary arterial systolic pressure is 27 mmHg. 10. There is trivial posteriorly located pericardial effusion. Left Ventricle Definity contrast administered improved wall motion interpretation. E/e' 10 is mildly elevated. Left ventricular chamber dimension is severely enlarged. Left ventricular systolic function is severely reduced, estimated at 25-30%. The left ventricular diastolic function is grade III diastolic dysfunction. Right Ventricle Right ventricular chamber dimension is normal. Right ventricular systolic function is normal. Left Atria Left atrial chamber dimension is mildly enlarged. Right Atria Right atrial chamber dimension is normal. Aortic Valve The aortic valve is trileaflet. There is no aortic valve stenosis. There is no aortic valve regurgitation. Pulmonic Valve There is no pulmonic regurgitation. Mitral Valve There is no mitral valve stenosis. There is mild mitral valve regurgitation. Tricuspid Valve There is trace tricuspid valve regurgitation. No pulmonary hypertension, estimated pulmonary arterial systolic pressure is 27 mmHg. Pericardium/Pleural There is trivial posteriorly located pericardial effusion. Inferior Vena Cava Normal inferior vena cava with >50% collapse upon inspiration consistent with normal right atrial pressure, 5 mmHg. Aorta The aortic root size at the sinus of Valsalva is normal. Left Ventricular Outflow Tract Name Value Normal LVOT 2D LVOT Diameter 1.97 cm LVOT Doppler LVOT Peak Velocity 76.18 cm/s LVOT Peak Gradient 2 mmHg LVOT Mean Gradient 1 mmHg LVOT VTI 13.24 cm LVOT VTI/AV VTI Ratio 0.78 LVO
[2021-12-20 06:52] LABS: Hemoglobin 12.7 g/dL (12.0-15.0); Mean Corpuscular HGB Conc 32.6 g/dl (32-36); Mean Corpuscular Hemoglobin 32.6 pg (26-34); Platelet Count Result 285 k/mm3 (150-375); Red Cell Distribution Width 13.1 % (11.5-14.5); White Blood Count 9.8 K/mm3 (4.5-10.0)
[2021-12-20 07:19] LABS: Alanine Aminotransferase 19 U/L (4-35); Albumin Level 3.9 g/dL (3.5-5.1); Alkaline Phosphatase 99 U/L (38-126); Anion Gap 10 mmol/L (8-16); Aspartate Amino Transferase 22 U/L (14-36); Bilirubin,Total 0.4 mg/dL (0.2-1.3); Blood Urea Nitrogen 22 mg/dL (7-17); Calcium 9.5 mg/dL (8.4-10.2); Carbon Dioxide 30 mmol/L (22-30); Chloride 95 mmol/L (98-107); Estimated CRCL calculation 94 ml/min; Estimated Glomerular Filt Rate > 60; Glucose 92 mg/dL (65-110); Magnesium 2.3 mg/dL (1.6-2.3); Potassium 4.1 mmol/L (3.4-5.0); Sodium 135 mmol/L (137-145)
[2021-12-20] MEDS: FUROSEMIDE INJ 40 MG/4 ML VIAL IV PUSH (08:37)
[2021-12-20] MEDS: HYDROCORTISONE 1% 30 GM CREAM 1 APPLIC TOPICAL ×2 (08:37→21:09)
[2021-12-20] MEDS: METOPROLOL TARTRATE 12.5 MG TABLET PO ×2 (08:37→21:07)
[2021-12-20 10:38] LABS: SARS-CoV-2 RNA PCR Negative
[2021-12-20] MEDS: HYDROcodone/acetaminophen (*CRX) 5-325 MG TABLET 1 TAB PO (10:48)
--- NOTE | 2021-12-20 14:43 | PM.GYNPNOP ---
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 pt given 25 mg benadryl PO. will continue to monitor Time Spent With Patient Time: Total time spent is greater than 50% in coordination of care (as documented) at patient's floor/unit and/or counseling patient: Time with patient: less than 15 minutes LEARNING SOLUTIONS SPECIALIST- PN:Subj Post-Op Subjective Date/time seen: 12/20/21 14:43 Interval history: 26 yo who presents with cardiomyopathy 1 wk s/p primary section. Pt states she is feeling much better today. She states she will still get out of breathe when exerting her self but states it is much better than yesterday. Pt denies any chest pain. Pt is complaining of a rash and hives across her abdomen that has been presents since the adhesive tape used in her . Subjective: patient reports feeling better Exam Const: General: cooperative and healthy appearing Nutritional Appearance: average body habitus Orientation/consciousness: patient oriented x3 Resp: Effort & Inspection: normal respiratory effort and able to speak in complete sentences Auscultation: clear to auscultation bilaterally Cardio: Rate: regular rate Rhythm: regular rhythm GI: Inspection: incision (pfannenstiel incision ) and other (erythema and hives noted across abdomen ) GI Palp: No abdominal tenderness and Yes Soft to palpation LEARNING SOLUTIONS SPECIALIST - PN: Obj Data Vital Signs Vital Signs: Vital Signs - 24 hr 12/19/21 16:30 12/19/21 17:30 12/19/21 19:02 Temperature Pulse Rate 108 H 89 92 Respiratory Rate 16 17 18 Blood Pressure 100/85 102/68 101/76 Pulse Oximetry 94 97 94 12/19/21 20:49 12/19/21 21:55 12/19/21 22:19 Temperature 36.6 C Pulse Rate 100 102 H 102 H Respiratory Rate 17 16 Blood Pressure 118/83 119/66 Pulse Oximetry 98 99 12/20/21 00:00 12/20/21 04:00 12/20/21 08:00 Temperature 36.3 C L 37.1 C Pulse Rate 110 H 92 85 Respiratory Rate 14 18 Blood Pressure 101/54 L 97/63 L Pulse Oximetry 96 96 12/20/21 08:37 12/20/21 12:00 Temperature 36.6 C Pulse Rate 88 90 Respiratory Rate 18 Blood Pressure 101/63 Pulse Oximetry 98 Intake/Output Intake/Output: Intake & Output 12/17/21 12/18/21 12/19/21 12/20/21 23:59 23:59 23:59 23:59 Intake Total 1062 Output Total 850 Balance 212 Meds/Results Medications: Active Medications Generic Name Dose Route Start Last Admin Trade Name Freq PRN Reason Stop Dose Admin Hydrocodone Bitart/Acetaminophen 1 tab 12/19/21 23:36 12/20/21 10:48 Hydrocodone/Acetaminophen (*Crx) 5-325 Mg Tablet PO 1 tab Q6H PRN Administration pain Diphenhydramine HCl 25 mg 12/20/21 01:19 12/20/21 11:50 Diphenhydramine Hcl Inj 50 Mg/Ml Vial IV PUSH 25 mg Q6H PRN Administration Itching Furosemide 40 mg 12/19/21 21:00 12/20/21 08:37 Furosemide Inj 40 Mg/4 Ml Vial IV PUSH 40 mg Q12HR TEQUILA Administration Hydrocortisone 1 applic 12/20/21 09:00 12/20/21 08:37 Hydrocortisone 1% 30 Gm Cream TOPICAL 1 applic Q12HR TEQUILA Administration Metoprolol Tartrate 12.5 mg 12/19/21 21:00 12/20/21 08:37 Metoprolol Tartrate 12.5 Mg Tablet PO 12.5 mg Q12HR TEQUILA Administration Radiology Results: ITS Impressions Chest X-Ray 12/19/21 12:39 IMPRESSION: 1. Suggestion of mild congestive heart failure wit
--- NOTE | 2021-12-20 15:40 | PM.IMPN ---
Progress Note: A&P Assessment and Plan (1) Volume overload: Code(s): E87.70 - Fluid overload, unspecified Status: Acute (2) History of cardiomyopathy: Code(s): Z86.79 - Personal history of other diseases of the circulatory system Status: Acute (3) Hypomagnesemia: Code(s): E83.42 - Hypomagnesemia Status: Acute (4) Normocytic anemia: Code(s): D64.9 - Anemia, unspecified Status: Acute Additional Plan Patient has a history of chemotherapy-induced cardiomyopathy as detailed in the HPI though she has been cleared by her pediatric allergist and has been off of enalapril since 2019. Now presenting with volume overload and findings of CHF on imaging with tiny pleural effusions and mild cardiomegaly. May be related to fluid shifts from though will need an echocardiogram to evaluate her ejection fraction. She will be diuresed with close monitoring of volume status. She has been started on metoprolol tartrate 12.5 mg p.o. b.i.d. due to persistent tachycardia. Her magnesium will be replaced and monitored. Hemoglobin and hematocrit are stable on review of those drawn 5 days ago. Thank you for allowing us to participate in this patient's care. Please do not hesitate to contact us with any questions. Supervising physician for this medical consultation is Dr. Melly Milligan. 12/21/2021 Interval history: 26-year-old female with history cardiomegaly presented with complaint of shortness of breath, chest x-ray showed tiny pleural effusion, patient was started on IV Lasix to diurese the patient, there is also concern patient may have COVID being tested, patient states feeling little better compared to when she arrived, her cardiac echo showed ejection fraction of 25% and diastolic dysfunction grade 3, will consult station jailer for further recommendation, will continue present management and will continue to monitor. Subjective Date/time seen: 12/20/21 15:40 Patient has a history of chemotherapy-induced cardiomyopathy as detailed in the HPI though she has been cleared by her pediatric allergist and has been off of enalapril since 2019. Now presenting with volume overload and findings of CHF on imaging with tiny pleural effusions and mild cardiomegaly. May be related to fluid shifts from though will need an echocardiogram to evaluate her ejection fraction. She will be diuresed with close monitoring of volume status. She has been started on metoprolol tartrate 12.5 mg p.o. b.i.d. due to persistent tachycardia. Her magnesium will be replaced and monitored. Hemoglobin and hematocrit are stable on review of those drawn 5 days ago. 12/21/2021 Interval history: 26-year-old female with history cardiomegaly presented with complaint of shortness of breath, chest x-ray showed tiny pleural effusion, patient was started on IV Lasix to diurese the patient, there is also concern patient may have COVID being tested, patient states feeling little better compared to when she arrived, her cardiac echo showed ejection fraction of 25% and diastolic dysfunction grade 3, will consult station jailer for further recommendation, will continue present management and will continue to monitor Review of Systems Review of Systems: All systems reviewed & are unremarkable except as noted in HPI and below Exam Narrative: Patient is comfortable, NAD HEENT: eyes are clear and none icteric LUNGS: normal respiratory effort ABD: not distended Lower extremities: edema SKIN: nonjaundiced Neuro: grossly intact. Objective Data Vital Signs Vital Signs: Vital Signs - 24 hr 12/19/21 16:30 12/19/21 17:30 12/19/21 19:02 Temperature Pulse Rate 108 H 89 92 Respiratory Rate 16 17 18 Blood Pressure 100/85 102/68 101/76 Pulse Oximetry 94 97 94 12/19/21 20:49 12/19/21 21:55 12/19/21 22:19 Temperature 97.8 F
--- NOTE | 2021-12-20 16:32 | PM.CNCAR ---
Assessment and Plan Additional Plan This is an interesting 26-year-old lady who also unfortunately had cardiomyopathy following chemotherapy many years ago she now has apparent cardiomyopathy and is by exam euvolemic after receiving some furosemide IV. At this time I am going to stop the IV furosemide and start modest doses of carvedilol Entresto and spironolactone. Keep her in the hospital for probably a day or 2 to make sure she does not become hypotensive with these medications I hope she does not if we keep the doses low. 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 Larry Turner MD [facility] History of Present Illness History of Present Illness Consult date/time: 12/20/21 16:32 Consult reason: congestive heart failure Reason For Visit: cardiomyopathy, CHF, dyspnea Narrative: This is a very pleasant and unfortunate 26-year-old lady who I am seeing at the request of the hospitalist this evening because of congestive heart failure in the apparent diagnosis of peripartum cardiomyopathy. She was in her usual state of very good health recently where she came into the hospital here last week for childbirth she underwent childbirth by section did well and was discharged home after an uneventful recovery. Yesterday she began to notice symptoms of shortness of breath lower extremity edema that resulted in her being advised to come to the hospital for evaluation by her physician. She was found to have some bipedal edema and pulmonary congestion on exam she was given some IV furosemide is currently receiving furosemide at a dosage of 40 mg q.12 hours. She did not have any other cardiac symptoms such as chest pain pressure or heaviness he does not have any sense of palpitations or syncope it is never had a syncopal episode. She had an echocardiogram done earlier today that was read by Dr. Rangel showing evidence of significant left ventricular systolic dysfunction and as a result of this we were consulted to see her this evening. Coming into the room to see her she is comfortable are resting flat in bed breathing room air and does not appear to be in any distress. 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 This presented as a pathological femoral fracture in childhood she was treated with surgical excision of the lesion followed by chemotherapy. She states that the chemotherapy did result in a cardiomyopathy and she saw a pediatrician at [facility] and then an adult ec teacher for short time. The only medication she remembers taking for this was enalapril. Her previous ec teacher discontinued that medication something like 8 or 10 years ago and she was felt to be resolved of that problem. I did personally review the echocardiogram prior to seeing this patient. Her left ventricle appears to be normal in size there is global hypocontractility with an ejection fraction I would workday manager to be 30-35% by visual estimation. She has a trivial amount of mitral valve regurgitation. The patient otherwise is comfortable she does become tearful when having this discussion. She is not taking any cardiac medications coming into the hospital her only allergy is to ceftazidime. Review of Systems Constitutional: Constitutional: Reports no additional constitutional complaints Eyes: Eyes: Reports no additional eye complaints ENT: Reports system reviewed and no additional complaints, except as documented Cardiovascular: Cardiovascular: Reports as per HPI Respiratory: Respiratory: Reports as per HPI Gastrointestinal: Gastrointestinal: Reports no additional gastrointestinal complaints Musculoskeletal: Musculoskeletal: Reports no additional musculoskeletal complaints Integumentary/Breasts: Skin/Breast: Reports system reviewed and no additional complaints, except as docu Neurologic: Reports system
[2021-12-20] MEDS: SACUBITRIL/VALSARTAN 24-26 MG TABLET 1 TAB PO (21:07)
[2021-12-20] MEDS: carvediloL 3.125 MG TABLET PO (21:07)
[2021-12-21] VITALS (12 sets, daily range): BP systolic 86–105; BP diastolic 55–70; PULSE 83–103; RESP 12–18; TEMP 36–36.4; O2SAT 97–99
[2021-12-21 07:27] LABS: Anion Gap 12 mmol/L (8-16); Blood Urea Nitrogen 26 mg/dL (7-17); Calcium 9.2 mg/dL (8.4-10.2); Carbon Dioxide 23 mmol/L (22-30); Chloride 99 mmol/L (98-107); Estimated CRCL calculation 109 ml/min; Estimated Glomerular Filt Rate > 60; Glucose 101 mg/dL (65-110); Magnesium 2.3 mg/dL (1.6-2.3); Potassium 4.6 mmol/L (3.4-5.0); Sodium 134 mmol/L (137-145)
--- NOTE | 2021-12-21 08:47 | PM.GYNPNOP ---
LIFE AGENT - A/P Assessment and plan (1) Peripartum cardiomyopathy, delivered: Code(s): O90.3 - Peripartum cardiomyopathy Status: Acute Assessment and Plan: pt asymptomatic diuresing well echocardiogram showed decreased left ventricular function with EF of 25-35% cardiology recommended carvedilol Entresto and spironolactone appreciate cardiology and hospitalist recommendations will continue observe on medications Postoperative Postoperative status: doing well Time Spent With Patient Time: Total time spent is greater than 50% in coordination of care (as documented) at patient's floor/unit and/or counseling patient: Time with patient: less than 15 minutes LIFE AGENT- PN:Subj Post-Op Subjective Date/time seen: 12/21/21 08:47 Interval history: 26 yo who presents with cardiomyopathy 1 wk s/p primary section. Pt continues to do well. She denies any SOB or CP. Pt is distraught over being from her . LIFE AGENT - PN: Obj Data Vital Signs Vital Signs: Vital Signs - 24 hr 12/20/21 12:00 12/20/21 16:00 12/20/21 20:00 Temperature 36.6 C 36.8 C 36.5 C Pulse Rate 90 95 99 Respiratory Rate 18 16 12 Blood Pressure 101/63 103/63 95/63 L Pulse Oximetry 98 97 97 12/20/21 21:07 12/20/21 21:10 12/20/21 22:40 Temperature Pulse Rate 93 Respiratory Rate Blood Pressure 106/75 105/65 Pulse Oximetry 12/21/21 00:00 12/21/21 04:00 Temperature 36.0 C L 36.0 C L Pulse Rate 83 85 Respiratory Rate 12 12 Blood Pressure 103/65 105/70 Pulse Oximetry 97 99 Intake/Output Intake/Output: Intake & Output 12/18/21 12/19/21 12/20/21 12/21/21 23:59 23:59 23:59 23:59 Intake Total 1782 440 Output Total 1550 Balance 232 440 Meds/Results Medications: Active Medications Generic Name Dose Route Start Last Admin Trade Name Freq PRN Reason Stop Dose Admin Hydrocodone Bitart/Acetaminophen 1 tab 12/19/21 23:36 12/20/21 10:48 Hydrocodone/Acetaminophen (*Crx) 5-325 Mg Tablet PO 1 tab Q6H PRN Administration pain Carvedilol 3.125 mg 12/20/21 21:00 12/20/21 21:07 Carvedilol 3.125 Mg Tablet PO 3.125 mg Q12HR [facility] Administration Diphenhydramine HCl 25 mg 12/20/21 01:19 12/20/21 22:55 Diphenhydramine Hcl Inj 50 Mg/Ml Vial IV PUSH 25 mg Q6H PRN Administration Itching Hydrocortisone 1 applic 12/20/21 09:00 12/20/21 21:09 Hydrocortisone 1% 30 Gm Cream TOPICAL 1 applic Q12HR [facility] Administration Metoprolol Tartrate 12.5 mg 12/19/21 21:00 12/20/21 21:07 Metoprolol Tartrate 12.5 Mg Tablet PO 12.5 mg Q12HR [facility] Administration Sacubitril/Valsartan 1 tab 12/20/21 21:00 12/20/21 21:07 Sacubitril/Valsartan 24-26 Mg Tablet PO 1 tab Q12HR [facility] Administration Spironolactone 25 mg 12/21/21 09:00 Spironolactone 25 Mg Tablet PO QAM [facility] Radiology Results: ITS Impressions Chest X-Ray 12/19/21 12:39 IMPRESSION: 1. Suggestion of mild congestive heart failure with mild cardiomegaly, mild pulmonary edema in the lower lung zones and tiny bilateral pleural effusions. Chest CTA 12/19/21 14:13 IMPRESSION: 1. Findings consistent with mild CHF exacerbation. 2. No pulmonary emboli. Venous Doppler Study 12/20/21 09:48 IMPRESSION: 1. No lower extremity deep venous thrombosis bilaterally. Labs CBC & Chem 7: 12/20/21 06:03 12/21/21 06:19 Labs: Laboratory Results - last 24 hr 12/19/21 12/21/21 14:24 06:19 Sodium 134 L Potassium 4.6 Chloride 99 Carbon Dioxide 23 Anion Gap 12 BUN 26 H Creatinine 0.60 L Estim Creat Clear Calc 109 Estimated GFR > 60 Glucose 101 Calcium 9.2 Magnesium 2.3 SARS-CoV-2 RNA (RT-PCR) Negative
[2021-12-21] MEDS: diphenhydrAMINE HCl INJ 50 MG/ML VIAL 25 MG IV PUSH ×2 (08:51→23:26)
[2021-12-21] MEDS: HYDROcodone/acetaminophen (*CRX) 5-325 MG TABLET 1 TAB PO ×2 (08:51→15:42)
[2021-12-21] MEDS: SACUBITRIL/VALSARTAN 24-26 MG TABLET 1 TAB PO (08:52)
[2021-12-21] MEDS: METOPROLOL TARTRATE 12.5 MG TABLET PO (08:52)
[2021-12-21] MEDS: HYDROCORTISONE 1% 30 GM CREAM 1 APPLIC TOPICAL ×2 (08:52→23:16)
[2021-12-21] MEDS: carvediloL 3.125 MG TABLET PO ×2 (08:52→23:16)
[2021-12-21] MEDS: SPIRONOLACTONE 25 MG TABLET PO (08:52)
--- NOTE | 2021-12-21 10:54 | PM.PNCARD ---
Progress Note: A&P Assessment and Plan (1) Peripartum cardiomyopathy, delivered: Code(s): O90.3 - Peripartum cardiomyopathy Status: Acute Assessment and Plan: EF around 30%. I did talk to her about the carvedilol, Entresto and spironolactone and risks with . I discussed with pharmacy and while no definitive human trials have been performed, it is thought that these medications are safe. Because of her hypotension, I am going to reduce her spironolactone down to 12.5 mg p.o. daily. (2) CHF (congestive heart failure): Qualifiers: Heart failure chronicity: acute Heart failure type: unspecified Qualified Code(s): I50.9 - Heart failure, unspecified Code(s): I50.9 - Heart failure, unspecified Status: Acute Assessment and Plan: Acute systolic related to peripartum cardiomyopathy (3) History of osteosarcoma: Code(s): Z85.830 - Personal history of malignant neoplasm of bone Status: Acute Assessment and Plan: Previous history of chemo induced cardiomyopathy as a child (4) Nonsustained ventricular tachycardia: Code(s): I47.2 - Ventricular tachycardia Status: Acute Assessment and Plan: Triplet was noted on monitor. I did talk to her about the risks benefits alternatives of a LifeVest also. Obviously a concern would be if the LifeVest were to discharge while she is holding her child, obviously the child would be shocked as well. With that said though given her nonsustained VT and severe cardiomyopathy, I think it is prudent to order a LifeVest for her protection. She verbalized understanding and is agreeable. We did discuss that 1 possibility would be to take the LifeVest off temporarily while holding the child or breast-feeding but it would not protect her during that timeframe Subjective Date/time seen: 12/21/21 10:54 Interval history: 26 yo who presents with cardiomyopathy 1 wk s/p primary section Date of service 12/21/2021: Feeling better from a cardiac perspective. She is not having any chest pain or shortness breath at rest. Review of Systems Constitutional: Constitutional: Reports no additional constitutional complaints Eyes: Eyes: Reports no additional eye complaints ENT: Reports system reviewed and no additional complaints, except as documented Cardiovascular: Cardiovascular: Reports as per HPI Respiratory: Respiratory: Reports as per HPI Gastrointestinal: Gastrointestinal: Reports no additional gastrointestinal complaints Musculoskeletal: Musculoskeletal: Reports no additional musculoskeletal complaints Integumentary/Breasts: Skin/Breast: Reports system reviewed and no additional complaints, except as docu Neurologic: Reports system reviewed and no additional complaints, except as documented Endocrine: Endocrine: Reports no additional endocrine complaints Hematologic/Lymphatic: Hematologic/Lymphatic: Reports no additional hematologic/lymphatic complaints Allergic/Immunologic: Allergic/Immunologic: Reports no additional allergic/immunologic complaints Exam Const: General: comfortable and no acute distress Other: Pleasant somewhat tearful young lady comfortable cooperative HENMT: Mouth: Yes moist mucous membranes Eyes: Sclera: sclerae normal Neck: Neck: supple and no JVD Other: Normal carotid pulses bilateral Resp: Effort & Inspection: normal respiratory effort Auscultation: clear to auscultation bilaterally Cardio: Rate: regular rate and tachycardic Rhythm: regular rhythm Other: Soft S3-S3 is heard, no murmur no rub GI: Auscultation: normal bowel sounds Skin: General skin exam: normal color Neuro: Cranial nerves: Yes Equal, round and reactive pupils present Cognition (Neuro): normal cognition Extrem: Other: No residual lower extremity edema at all at this time Psych: Appearance: grossly normal Objective Data Vital Signs Vital Signs: Vital Signs - 24 hr 12/20/21
--- NOTE | 2021-12-21 11:12 | PM.IMPN ---
Progress Note: A&P Assessment and Plan (1) Volume overload: Code(s): E87.70 - Fluid overload, unspecified Status: Acute (2) History of cardiomyopathy: Code(s): Z86.79 - Personal history of other diseases of the circulatory system Status: Acute (3) Hypomagnesemia: Code(s): E83.42 - Hypomagnesemia Status: Acute (4) Normocytic anemia: Code(s): D64.9 - Anemia, unspecified Status: Acute Additional Plan Patient has a history of chemotherapy-induced cardiomyopathy as detailed in the HPI though she has been cleared by her director pediatric and has been off of enalapril since 2019. Now presenting with volume overload and findings of CHF on imaging with tiny pleural effusions and mild cardiomegaly. May be related to fluid shifts from though will need an echocardiogram to evaluate her ejection fraction. She will be diuresed with close monitoring of volume status. She has been started on metoprolol tartrate 12.5 mg p.o. b.i.d. due to persistent tachycardia. Her magnesium will be replaced and monitored. Hemoglobin and hematocrit are stable on review of those drawn 5 days ago. Thank you for allowing us to participate in this patient's care. Please do not hesitate to contact us with any questions. Supervising physician for this medical consultation is Dr. Melly Milligan. 12/20/2021 Interval history: 26-year-old female with history cardiomegaly presented with complaint of shortness of breath, chest x-ray showed tiny pleural effusion, patient was started on IV Lasix to diurese the patient, there is also concern patient may have COVID being tested, patient states feeling little better compared to when she arrived, her cardiac echo showed ejection fraction of 25% and diastolic dysfunction grade 3, will consult trimmer tailer for further recommendation, will continue present management and will continue to monitor. 12/21/2021 Interval history: patient with cardiomyopathy with ejection fraction 25-30% and grade 3 diastolic dysfunction, was seen by trimmer tailer started the patient on Entresto and spironolactone, today patient blood pressure is soft spironolactone is reduced to 12.5 mg q.day, trimmer tailer discussed with the patient safety of the medication durin , also patient will require lifevest, concern in the event of shock while holding the baby may be can get shocked, however trimmer tailer is recommending patient should have LifeVest. patient remains clinically stable. will continue to monitor. Subjective Date/time seen: 12/21/21 11:12 12/20/2021 Interval history: 26-year-old female with history cardiomegaly presented with complaint of shortness of breath, chest x-ray showed tiny pleural effusion, patient was started on IV Lasix to diurese the patient, there is also concern patient may have COVID being tested, patient states feeling little better compared to when she arrived, her cardiac echo showed ejection fraction of 25% and diastolic dysfunction grade 3, will consult trimmer tailer for further recommendation, will continue present management and will continue to monitor. 12/21/2021 Interval history: patient with cardiomyopathy with ejection fraction 25-30% and grade 3 diastolic dysfunction, was seen by trimmer tailer started the patient on Entresto and spironolactone, today patient blood pressure is soft spironolactone is reduced to 12.5 mg q.day, trimmer tailer discussed with the patient safety of the medication durin , also patient will require lifevest, concern in the event of shock while holding the baby may be can get shocked, however trimmer tailer is recommending patient should have LifeVest. patient remains clinically stable. will continue to monitor. Review of Systems Review of Systems: All systems reviewed & are
[2021-12-22] VITALS (7 sets, daily range): BP systolic 88–105; BP diastolic 55–75; PULSE 82–100; RESP 14–18; TEMP 35.7–36.1; O2SAT 95–100
[2021-12-22] MEDS: SACUBITRIL/VALSARTAN 24-26 MG TABLET 1 TAB PO ×2 (00:18→08:12)
[2021-12-22] MEDS: carvediloL 3.125 MG TABLET PO (08:11)
[2021-12-22] MEDS: SPIRONOLACTONE 12.5 MG TABLET PO (08:11)
[2021-12-22] MEDS: HYDROCORTISONE 1% 30 GM CREAM 1 APPLIC TOPICAL (08:12)
[2021-12-22] MEDS: diphenhydrAMINE HCl INJ 50 MG/ML VIAL 25 MG IV PUSH (08:14)
[2021-12-22] MEDS: HYDROcodone/acetaminophen (*CRX) 5-325 MG TABLET 1 TAB PO (08:15)
[2021-12-22 08:25] LABS: Anion Gap 9 mmol/L (8-16); Blood Urea Nitrogen 24 mg/dL (7-17); Calcium 9.1 mg/dL (8.4-10.2); Carbon Dioxide 23 mmol/L (22-30); Chloride 103 mmol/L (98-107); Estimated CRCL calculation 108 ml/min; Estimated Glomerular Filt Rate > 60; Glucose 100 mg/dL (65-110); Magnesium 1.9 mg/dL (1.6-2.3); Potassium 4.3 mmol/L (3.4-5.0); Sodium 135 mmol/L (137-145)
--- NOTE | 2021-12-22 09:02 | P.DS_ITS ---
DS: Admitting Diagnosis Discharge Date 12/22/21 Admitting Diagnosis peripartum cardiomyopathy DS: Summary Hospital Course Hospital Course: 26 yo who presented with SOB and subsequently was found to have peripartum cardiomyopathy 1 week after primary . Pt was given IV diuretics and placed on Beta blockers for rate control. Echocardiogram showed EF of 25-35%. Cardiology consultation recommended carvedilol, Entresto and spironolactone. Pt has been asymptomatic. She has had some hypotension secondary to the medications. Cardiology also recommending LiveVest. Appreciate hosp tialist and cardiology recommendations. Status at Discharge Functional status at discharge: independent ambulation Overall status at discharge: patient is progressing back to baseline Time Spent with Patient Time attestation: Total time spent providing and/or coordinating discharge services: Time spent: Less than 30 minutes Exam Const: General: cooperative, healthy appearing and comfortable Resp: Effort & Inspection: normal respiratory effort and able to speak in co mplete sentences Cardio: Rate: regular rate GI: Inspection: incision (pfannenstiel incision healing appropriately ), striae and other (some contact dermatitis from surgical adhesive tape) GI Palp: Yes Soft to palpation, No Tenderness to palpation present (GI) and No Guarding due to palpation present (GI) DS: Data Data Completed and Pending Labs on day of discharge: Labs from last 24 hours 12/22/21 07:41 Sodium 135 L Potassium 4.3 Chloride 103 Carbon Dioxide 23 Anion Gap 9 BUN 24 H Creatinine 0.60 L Estim Creat Clear Calc 108 Estimated GFR > 60 Glucose 100 Calcium 9.1 Magnesium 1.9 Discharge Plan Discharge Consulting providers: Melly Milligan ; Lizzette Conn Discharging Clinician: Harmeet Cool Patient Disposition: Home, Self-Care Activity: as tolerated and pelvic rest Diet: heart healthy Patient Instructions: Antibiotic Form, Dilated Cardiomyopathy (DC) Stand Alone Forms: General Discharge Information Follow-up/Referrals: Harmeet Cool MD [Physician] - 2 Weeks Discharge Medications: No Action hydrocodone-acetaminophen 5-325 mg tablet 1 tablet PO Q6H PRN (Reason: pain) Qty: 28 RF: 0 Date of admission: 12/19/21 15:33 Primary Care Provider: ClaytonLilly Admitting Provider: Harmeet Cool Attending physician on admission: Harmeet Cool Condition: Stable
--- NOTE | 2021-12-22 09:45 | PM.PNCARD ---
Progress Note: A&P Assessment and Plan (1) Peripartum cardiomyopathy, delivered: Code(s): O90.3 - Peripartum cardiomyopathy Status: Acute Assessment and Plan: EF around 30%. I did talk to her about the carvedilol, Entresto and spironolactone and risks with . I discussed with pharmacy and while no definitive human trials have been performed, it is thought that these medications are safe. At this point, I am going to stop her spironolactone completely due to hypotension. Continue carvedilol and Entresto. Hopefully will be able to add back some spironolactone as an outpatient. Home with LifeVest Will have a follow-up with us in the office within 2-4 weeks. (2) CHF (congestive heart failure): Qualifiers: Heart failure chronicity: acute Heart failure type: unspecified Qualified Code(s): I50.9 - Heart failure, unspecified Code(s): I50.9 - Heart failure, unspecified Status: Acute Assessment and Plan: Acute systolic related to peripartum cardiomyopathy (3) History of osteosarcoma: Code(s): Z85.830 - Personal history of malignant neoplasm of bone Status: Acute Assessment and Plan: Previous history of chemo induced cardiomyopathy as a child (4) Nonsustained ventricular tachycardia: Code(s): I47.2 - Ventricular tachycardia Status: Acute Assessment and Plan: Triplet was noted on monitor. I did talk to her about the risks benefits alternatives of a LifeVest also. Obviously a concern would be if the LifeVest were to discharge while she is holding her child, obviously the child would be shocked as well. With that said though given her nonsustained VT and severe cardiomyopathy, I think it is prudent to order a LifeVest for her protection. She verbalized understanding and is agreeable. We did discuss that 1 possibility would be to take the LifeVest off temporarily while holding the child or breast-feeding but it would not protect her during that timeframe Subjective Date/time seen: 12/22/21 09:45 Interval history: 26-year-old with peripartum cardiomyopathy Date of service 12/22/2021: Feels okay. No chest pain, shortness of breath. No swelling. No dizziness or lightheadedness Review of Systems Constitutional: Constitutional: Reports no additional constitutional complaints Eyes: Eyes: Reports no additional eye complaints ENT: Reports system reviewed and no additional complaints, except as documented Cardiovascular: Cardiovascular: Reports as per HPI Respiratory: Respiratory: Reports as per HPI Gastrointestinal: Gastrointestinal: Reports no additional gastrointestinal complaints Musculoskeletal: Musculoskeletal: Reports no additional musculoskeletal complaints Integumentary/Breasts: Skin/Breast: Reports system reviewed and no additional complaints, except as docu Neurologic: Reports system reviewed and no additional complaints, except as documented Endocrine: Endocrine: Reports no additional endocrine complaints Hematologic/Lymphatic: Hematologic/Lymphatic: Reports no additional hematologic/lymphatic complaints Allergic/Immunologic: Allergic/Immunologic: Reports no additional allergic/immunologic complaints Exam Const: General: comfortable and no acute distress HENMT: Mouth: Yes moist mucous membranes Eyes: Sclera: sclerae normal Pupils: Equal, round and reactive pupils present Neck: Neck: supple and no JVD Resp: Effort & Inspection: normal respiratory effort Auscultation: clear to auscultation bilaterally Cardio: Rate: regular rate and tachycardic Rhythm: regular rhythm GI: Auscultation: normal bowel sounds Skin: General skin exam: normal color Neuro: Cranial nerves: Yes Equal, round and reactive pupils present Cognition (Neuro): normal cognition Psych: Appearance: grossly normal Objective Data Vital Signs Vital Signs: Vital Signs - 24 hr 12/21/21 10:00 12/21/21 12:00 12/21/21 14:44 Temperat
--- NOTE | 2021-12-22 11:04 | PM.IMPN ---
Progress Note: A&P Assessment and Plan (1) Volume overload: Code(s): E87.70 - Fluid overload, unspecified Status: Acute (2) History of cardiomyopathy: Code(s): Z86.79 - Personal history of other diseases of the circulatory system Status: Acute (3) Hypomagnesemia: Code(s): E83.42 - Hypomagnesemia Status: Acute (4) Normocytic anemia: Code(s): D64.9 - Anemia, unspecified Status: Acute Additional Plan Patient has a history of chemotherapy-induced cardiomyopathy as detailed in the HPI though she has been cleared by her general pediatrician and has been off of enalapril since 2019. Now presenting with volume overload and findings of CHF on imaging with tiny pleural effusions and mild cardiomegaly. May be related to fluid shifts from though will need an echocardiogram to evaluate her ejection fraction. She will be diuresed with close monitoring of volume status. She has been started on metoprolol tartrate 12.5 mg p.o. b.i.d. due to persistent tachycardia. Her magnesium will be replaced and monitored. Hemoglobin and hematocrit are stable on review of those drawn 5 days ago. Thank you for allowing us to participate in this patient's care. Please do not hesitate to contact us with any questions. Supervising physician for this medical consultation is Dr. Melly Milligan. 12/20/2021 Interval history: 26-year-old female with history cardiomegaly presented with complaint of shortness of breath, chest x-ray showed tiny pleural effusion, patient was started on IV Lasix to diurese the patient, there is also concern patient may have COVID being tested, patient states feeling little better compared to when she arrived, her cardiac echo showed ejection fraction of 25% and diastolic dysfunction grade 3, will consult day care supervisor for further recommendation, will continue present management and will continue to monitor. 12/21/2021 Interval history: patient with cardiomyopathy with ejection fraction 25-30% and grade 3 diastolic dysfunction, was seen by day care supervisor started the patient on Entresto and spironolactone, today patient blood pressure is soft spironolactone is reduced to 12.5 mg q.day, day care supervisor discussed with the patient safety of the medication durin , also patient will require lifevest, concern in the event of shock while holding the baby may be can get shocked, however day care supervisor is recommending patient should have LifeVest. patient remains clinically stable. will continue to monitor. 12/22/2021 Interval history: patient with cardiomyopathy with ejection fraction 25-30% and grade 3 diastolic dysfunction, was seen by day care supervisor started the patient on Entresto and spironolactone, patient blood pressure was soft spironolactone is reduced to 12.5 mg q.day, however patient blood pressure remains low day care supervisor dc spironolactone, day care supervisor discussed with the patient safety of the medication during , also patient will require lifevest, concern in the event of shock while holding the baby may be can get shocked, however day care supervisor is recommending patient should have LifeVest. patient remains clinically stable. will continue to monitor. today patient seen by OBGYN and Cardiology patient is clinically stable and plan is to discharge the patient once patient has a LifeVest, patient will follow-up with her OBGYN and Cardiology as scheduled. Subjective Date/time seen: 12/22/21 11:04 Patient has a history of chemotherapy-induced cardiomyopathy as detailed in the HPI though she has been cleared by her general pediatrician and has been off of enalapril since 2019. Now presenting with volume overload and findings of CHF on imaging with tiny pleural effusions and mild cardiomegaly. May be related to fluid shifts from though will need an echocardiogram to evaluat
== END 2021-12-22 13:00 | disposition home or self-care (01) | DRG 561 ==
LOC: ANHED 15:17 → ANH3MEDSUR 19:00
PROVIDERS: Emergency Medicine; Physician Assistant; Admitting Provider Student in an Organized Health Care Education/Training Program; Emergency Provider Emergency Medicine; PCP Nurse Practitioner Adult Health; Visit Provider Family Medicine
DX: O90.3 Peripartum cardiomyopathy (principal); Z20.822 Contact with and (suspected) exposure to COVID-19; E83.42 Hypomagnesemia; O90.81 Anemia of the puerperium; D64.9 Anemia, unspecified; O99.43 Diseases of the circulatory system complicating the puerperium; I50.21 Acute systolic (congestive) heart failure; I47.2 Ventricular tachycardia; I95.2 Hypotension due to drugs; Z90.49 Acquired absence of other specified parts of digestive tract; Z85.830 Personal history of malignant neoplasm of bone
CPT/HCPCS: 36415; 71046; 71275; 80048; 80053; 81001; 83605; 83735; 83880; 84443; 84484; 85025; 85027; 93005; 93970; 96374; 99285; A9270; C8929; C9803; J1200; J1940; J3475; Q9957; Q9967; U0003; U0005

== ENCOUNTER 2022-01-13 11:13 | Emergency (ER) | payer OTHER, SELFPAY ==
[2022-01-13 11:20] VITALS: BP 101/73; PULSE 90; RESP 18; TEMP 35.9; O2SAT 100
--- NOTE | 2022-01-13 11:25 | ED.EAR ---
HPI - Ear Problem General Chief complaint: Ear Stated complaint: Ear Pain Time Seen by Provider: 01/13/22 11:20 Source: patient, RN notes reviewed and old records reviewed Mode of arrival: ambulatory Limitations: no limitations History of Present Illness HPI Narrative: 26-year-old female presents to the [facility] with complaints of bilateral ear pain, worse on the left than the right. Patient states that she recently delivered a baby. Has a history of congestive heart failure and is currently wearing a life vest. Denies any treatment prior to arrival. MD Complaint: ear pain Related Data Allergies Allergy/AdvReac Type Severity Reaction Status Date / Time ceftazidime Allergy Hives Verified 01/13/22 11:18 Review of Systems Review of Systems: All systems reviewed & are unremarkable except as noted in HPI and below Constitutional: Constitutional: Reports no additional constitutional complaints, Denies chills and Denies fever(s) Eyes: Eyes: Reports no additional eye complaints ENT: Reports as per HPI, Denies change in voice, Denies dental pain, Denies vertigo, Denies dizziness, Denies sore throat and Denies throat swelling Comments: Ear pain bilateral, worse on the left than the right Cardiovascular: Cardiovascular: Reports no additional cardiovascular complaints, Denies chest pain and Denies dyspnea Respiratory: Respiratory: Reports no additional respiratory complaints, Denies cough and Denies dyspnea Gastrointestinal: Gastrointestinal: Reports no additional gastrointestinal complaints, Denies abdominal pain, Denies nausea and Denies vomiting Musculoskeletal: Musculoskeletal: Reports no additional musculoskeletal complaints and Denies myalgias Integumentary/Breasts: Skin/Breast: Reports system reviewed and no additional complaints, except as docu Neurologic: Reports system reviewed and no additional complaints, except as documented, Denies vertigo, Denies dizziness and Denies headache(s) Psychiatric: Psychiatric: Reports no additional psychiatric complaints Allergic/Immunologic: Allergic/Immunologic: Reports no additional allergic/immunologic complaints and Denies throat swelling [facility] Past Medical History Medical History (Updated 01/13/22 @ 18:49 by Zoë Vallejo) Chemotherapy induced cardiomyopathy 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 Previously on enalapril. Osteosarcoma of right femur (2004) Surgical History Surgical History History of section (12/13/21) History of cholecystectomy History of orthopedic surgery 5 surgeries on the right lower extremity including right knee replacement related to osteosarcoma diagnosed at the age of 10. Family History Family History Other Family history non-contributory Social History Social History Social History: The patient lives with her and son in [place]. Nonsmoker. No alcohol or illicit substance abuse. She designates her Jeffrey or her mother Amada Menezes as her surrogate decision makers. Code status: Full code. Comments At the time of my signature, I reviewed and agree with the nursing past medical, surgical, social, and family history. There is no relevant family history pertinent to the patient complaint. Exam Const: General: healthy appearing, no acute distress and alert Nutritional Appearance: well nourished Orientation/consciousness: patient oriented x3 Limitations: no limitations HENMT: Head: normal to inspection Ears: external ears normal, EAC's normal and TM abnormal bulging bilateral, erythematous on the left, with fluid behind the TM on the right and with loss of landmarks on the left General nose exam: Normal external nose present and Normal nasal mucous membranes and turbinates present Face and sinus: normal facial exam Mouth: Yes Normal oral and palatal
== END 2022-01-13 11:30 | disposition home or self-care (01) ==
PROVIDERS: Emergency Provider Nurse Practitioner; PCP Nurse Practitioner Adult Health
DX: H66.93 Otitis media, unspecified, bilateral (principal); H65.01 Acute serous otitis media, right ear; I42.7 Cardiomyopathy due to drug and external agent; T45.1X5A Adverse effect of antineoplastic and immunosuppressive drugs, initial encounter; Z85.830 Personal history of malignant neoplasm of bone; I50.9 Heart failure, unspecified
CPT/HCPCS: 99213; G0463

== ENCOUNTER 2022-05-06 09:17 | Outpatient (CLI) | payer OTHER, SELFPAY ==
--- NOTE | 2022-05-06 11:00 | NEURO_ITS ---
Impression: # Complains of numbness and tingling in lower extremities. History of Venancio sarcoma of right femur with surgery followed by chemotherapy. 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 # Needle/EMG exam abnormal. # Left lower extremity not examined per patient request due to poor pain tolerance. Nerve Conduction Studies Anti Sensory Summary Table Stim Site NR Peak (ms) P-T Amp (?V) Site1 Site2 Delta-P (ms) Dist (cm) Tomi (m/s) Right Sup Fibular Anti Sensory (Ant Lat Mall) NO RESPONSE 14 cm NR 14 cm Ant Lat Mall 16.0 Right Sural Anti Sensory (Lat Mall) Calf 4.2 4.8 Calf Lat Mall 4.2 16.0 38 Motor Summary Table Stim Site NR Onset (ms) O-P Amp (mV) Site1 Site2 Delta-0 (ms) Dist (cm) Tomi (m/s) Right Peroneal Motor (Vastus Med) Ankle 4.1 5.0 Popit Ankle 10.5 33.0 31 Popit 14.6 2.6 Right Tibial Motor (Abd De La O Brev) Ankle 4.2 8.8 Knee Ankle 6.1 35.0 57 Knee 10.3 8.3 F Wave Studies NR F-Lat (ms) L-R F-Lat (ms) Right Peroneal (Mrkrs) (EDB) 45.48 Right Tibial (Mrkrs) (Abd Hallucis) 42.03 EMG Side Muscle Nerve Root Ins Act Fibs Amp Dur Recrt Comment Right AntTibialis Dp Br Fibular L4-5 Nml Nml Nml >12ms Reduced Right Gastroc Tibial S1-2 Nml Nml Nml >12ms Reduced Right Fibularis Long Sup Br Fibular L5-S1 Nml Nml Nml >12ms Reduced Right Flex Dig Long Tibial L5-S2 Nml Nml Nml >12ms Reduced Right Ext Dig Brev Dp Br Fibular L5, S1 Nml Nml Nml >12ms Reduced MTDD
== END 2022-05-06 09:18 | disposition home or self-care (01) ==
LOC: ANHNEURO 09:19
PROVIDERS: PCP Nurse Practitioner Adult Health; Visit Provider Nurse Practitioner Adult Health
DX: R20.2 Paresthesia of skin (principal); G62.9 Polyneuropathy, unspecified; R94.131 Abnormal electromyogram [EMG]
CPT/HCPCS: 95886; 95908

== ENCOUNTER 2022-05-30 11:46 | Emergency (ER) | payer OTHER, SELFPAY ==
[2022-05-30 11:55] VITALS: BP 108/57; PULSE 96; RESP 16; TEMP 36.7; O2SAT 99
--- NOTE | 2022-05-30 11:56 | ED.SKABFB ---
HPI - Skin/Abscess/Foreign Bdy General Chief complaint: Skin/Abscess/Foreign Body Stated complaint: Rash Time Seen by Provider: 05/30/22 12:12 Source: patient and RN notes reviewed Mode of arrival: ambulatory Limitations: no limitations History of Present Illness HPI narrative: 26-year-old female presents with concern for itchy rash. She reports the area started on her left anterior thigh, spread to her left ankle and now to her right arm. She report its very itchy. She denies any known triggers. She denies exposure to poison leland or similar plants. She denies swollen lips, swollen tongue, trouble breathing. MD complaint: rash Related Data Home Medications Medication Instructions Recorded Confirmed gabapentin 300 mg capsule 300 mg PO DIRECTED 05/30/22 05/30/22 hydrocodone 5 mg-acetaminophen 325 1 tablet PO DIRECTED 05/30/22 05/30/22 mg tablet Allergies Allergy/AdvReac Type Severity Reaction Status Date / Time ceftazidime Allergy Hives Verified 05/30/22 11:53 Review of Systems Review of Systems: CONSTITUTIONAL: Denies malaise, chills, sweats, or fever. EYES: Denies redness, or discharge. ENT: Denies rhinorrhea, congestion, swollen lips, swollen tongue CARDIOVASCULAR: Denies chest pain, palpitations, or edema. RESPIRATORY: Denies cough or dyspnea. GASTROINTESTINAL: Denies abdominal pain, nausea, vomiting SKIN: Reports itchy rash on the left leg and right arm MUSCULOSKELETAL: Denies joint painor myalgia. NEUROLOGIC: Denies headache. All systems reviewed & are unremarkable except as noted in HPI and below PMFSH Past Medical History Medical History (Updated 05/30/22 @ 12:27 by Zoë Arango NP) Chemotherapy induced cardiomyopathy Followed by bridge game director at [facility] until 2019. Previously on enalapril. Osteosarcoma of right femur (2004) Surgical History Surgical History History of section (12/13/21) History of cholecystectomy History of orthopedic surgery 5 surgeries on the right lower extremity including right knee replacement related to osteosarcoma diagnosed at the age of 10. Family History Family History Other Family history non-contributory Social History Social History (Reviewed 01/13/22 @ 18:48 by ROSI Watkins Social History: The patient lives with her and son in [place]. Nonsmoker. No alcohol or illicit substance abuse. She designates her Jeffrey or her mother Amada Menezes as her surrogate decision makers. Code status: Full code. Comments At time of signature, agree with nursing past medical, surgical, social and family history. There is no relevant family history pertinent to the presenting complaint Exam Narrative: GENERAL: Well-appearing, well-nourished, and in no acute distress. HEAD: Normocephalic, atraumatic. EYES: PERRLA, conjunctivae clear ENT: Mucous membranes moist. NECK: Supple. No lymphadenopathy CHEST: Clear to auscultation. No respiratory distress. HEART: Regular rate and rhythm. SKIN: Warm, dry. Small patch of erythematous rash with small vesicles to the left anterior thigh, smaller patches of erythematous papules to the left ankle. Small patch of erythematous papules to the right elbow NEURO: Alert and oriented x3. PSYCH: Normal mood and affect Course Course Emergency Course: Patient is aware of diagnosis, understands and agrees to treatment plan. Anticipatory guidance given. Patient agrees to follow-up as directed and is aware of reasons to seek care at the emergency department. Portions of this record may have been created with voice recognition software Level of Care: Express Care Visit Vital Signs Vital signs: Vital Signs Temperature 98.0 F 05/30/22 11:55 Pulse Rate 96 05/30/22 11:55 Respiratory Rate 16 05/30/22 11:55 Blood Pressure 108/57 L 05/30/22 11:55 Pulse Oximetry 99 05/30/22 11:55
== END 2022-05-30 12:34 | disposition home or self-care (01) ==
PROVIDERS: Emergency Provider Nurse Practitioner; PCP Nurse Practitioner Adult Health
DX: L25.9 Unspecified contact dermatitis, unspecified cause (principal); Z85.830 Personal history of malignant neoplasm of bone; Z92.21 Personal history of antineoplastic chemotherapy
CPT/HCPCS: 99213; G0463

== ENCOUNTER 2022-12-16 22:56 | Emergency (ER) | payer OTHER, SELFPAY ==
--- NOTE | ~2022-12-16 | XR_ITS ---
Clinical Indication: Shortness of breath PA and lateral views of the chest: Comparison: 12/19/2021 Findings: The lungs are clear, without evidence of focal consolidation or pleural effusion. Cardiome diastinal silhouette is within normal limits. Bones and soft tissues are unremarkable. Impression: Normal chest. Reviewed, dictated and finalized at [facility]. ICIAN HELPER Impression: Normal chest.
--- NOTE | 2022-12-16 22:58 | ECG_ITS ---
Measurements Intervals [place] Rate: 87 P: 29 NH: 119 QRS: 4 QRSD: 73 T: 59 QT: 335 QTc: 405 Interpretive Statements SINUS RHYTHM WITH SINUS ARRHYTHMIA WITH SHORT NH INTERVAL CONSIDER ANTERIOR INFARCT, AGE INDETERMINATE BORDERLINE ST-T WAVE ABNORMALITY- HIGH LATERAL LEADS BASELINE ARTIFACT- I, II, AVR ABNORMAL ECG NO PREVIOUS ECG AVAILABLE FOR COMPARISON Electronically Signed On 12-17-2022 7:56:10 HOPPER FILLER by Pb Rangel D.O.
[2022-12-16 23:12] VITALS: BP 108/56; PULSE 87; RESP 22; TEMP 36.3; O2SAT 97
[2022-12-17 00:04] LABS: Basophils Percent Auto 0.2 % (0.2-1.2); Eosinophils Percent Auto 0.1 % (0-4.4); Hemoglobin 14.9 g/dL (12.0-15.0); Immature Granulocyte Absolute 0.23 K/mm3 (0.00-0.031); Immature Granulocyte Percent A 1.8 % (0-0.5); Lymphocytes Absolute Auto 1.56 K/mm3 (0.9-3.2); Lymphocytes Percent Auto 11.9 % (18.3-44.2); Mean Corpuscular HGB Conc 33.9 g/dl (32-36); Mean Corpuscular Hemoglobin 32.3 pg (26-34); Mean Corpuscular Volume 95.2 fl (80-100); Monocytes Absolute Auto 0.5 K/mm3 (0.1-0.6); Monocytes Percent Auto 3.6 % (2.6-8.5); Neutrophils Absolute Auto 10.8 K/mm3 (1.3-6.7); Neutrophils Percent Auto 82.4 % (45.5-73.1); Platelet Count Result 391 k/mm3 (150-375); Red Blood Count 4.62 M/mm3 (4.2-5.4); Red Cell Distribution Width 13.4 % (11.5-14.5); White Blood Count 13.1 K/mm3 (4.5-10.0)
[2022-12-17 00:20] VITALS: BP 113/74; PULSE 87; PULSE 94; RESP 20; O2SAT 97; O2SAT 98
[2022-12-17 00:42] LABS: Influenza A QL RT-PCR Negative (Negative); Influenza B QL RT-PCR Negative (Negative); SARS-CoV-2 RNA PCR Negative
[2022-12-17 00:49] LABS: Prothrombin Time 12.5 Seconds (11.1-14.7)
[2022-12-17 00:50] LABS: Partial Thromboplastin Time 24.7 SECONDS (22.3-36.8)
[2022-12-17 01:00] VITALS: BP 101/58; PULSE 85; RESP 15; O2SAT 97
[2022-12-17 02:10] LABS: Potassium 4.5 mmol/L (3.4-5.0)
[2022-12-17 02:17] LABS: Alanine Aminotransferase 33 U/L (6-35); Albumin Level 4.4 g/dL (3.5-5.1); Alkaline Phosphatase 70 U/L (38-126); Anion Gap 11 mmol/L (8-16); Aspartate Amino Transferase 22 U/L (14-36); Bilirubin,Total 0.2 mg/dL (0.2-1.3); Blood Urea Nitrogen 20 mg/dL (7-17); Calcium 8.8 mg/dL (8.4-10.2); Carbon Dioxide 26 mmol/L (22-30); Chloride 99 mmol/L (98-107); Estimated CRCL calculation 101 ml/min; Estimated Glomerular Filt Rate > 60; Glucose 125 mg/dL (65-110); Sodium 136 mmol/L (137-145)
[2022-12-17 02:22] LABS: NT Pro B Type Natriuretic Pept 753 pg/mL (19.9-100); Troponin I < 0.012 ng/mL (0.000-0.034)
[2022-12-17 02:23] VITALS: BP 90/58; PULSE 81; RESP 14; O2SAT 97
[2022-12-17 03:00] VITALS: BP 99/74; PULSE 61; RESP 19; O2SAT 100
--- NOTE | 2022-12-17 03:09 | ED.SOB ---
HPI - SOB/Dyspnea General Chief Complaint: Shortness of Breath/Dyspnea Stated Complaint: SOB, Time Seen by Provider: 12/17/22 00:21 History of Present Illness HPI Narrative: Patient is a 27-year-old female who presents ER with shortness of breath. Ongoing over the last 2 to 3 days. Feels short of breath at rest and with any sort of exertion. Has history of cardiomyopathy that occurred a year ago. Her surgical instrument repair specialist is at [place]. She has been in touch with them regarding her symptoms. She has had no new leg edema or weight gain. No orthopnea. No productive cough. No fevers or chills or sweats. No chest pain or chest pressure. Her ejection fraction is around 40%. Of note patient has history of recent periprosthetic fracture of her right lower extremity. This is caused her to be on bedrest for prolonged period and she just got off of bedrest on November 18, 2022. She has been told that she may just have shortness of breath related to deconditioning. She has no pain with deep breath. Related Data Home Medications Medication Instructions Recorded Confirmed gabapentin 300 mg capsule 300 mg PO DIRECTED 05/30/22 05/30/22 hydrocodone 5 mg-acetaminophen 325 1 tablet PO DIRECTED 05/30/22 05/30/22 mg tablet Allergies Allergy/AdvReac Type Severity Reaction Status Date / Time ceftazidime Allergy Hives Verified 12/16/22 22:57 Review of Systems Review of Systems: All systems reviewed & are unremarkable except as noted in HPI and below Constitutional: Constitutional: Denies chills, Reports fatigue and Denies fever(s) ENT: Denies nasal congestion and Denies sore throat Cardiovascular: Cardiovascular: Denies chest pain, Denies rapid heart rate and Denies radiating jaw, neck or arm pain Respiratory: Respiratory: Denies chest congestion, Denies cough, Reports dyspnea and Denies wheezing Gastrointestinal: Gastrointestinal: Denies nausea and Denies vomiting [facility] Past Medical History Medical History (Updated 12/17/22 @ 04:09 by Geoff Butler MD) Chemotherapy induced cardiomyopathy Followed by surgical instrument repair specialist at [facility] until 2019. Previously on enalapril. Osteosarcoma of right femur (2004) Surgical History Surgical History History of section (12/13/21) History of cholecystectomy History of orthopedic surgery 5 surgeries on the right lower extremity including right knee replacement related to osteosarcoma diagnosed at the age of 10. Family History Family History Other Family history non-contributory Social History Social History Social History: The patient lives with her and son in [place]. Nonsmoker. No alcohol or illicit substance abuse. She designates her Jeffrey or her mother Amada Menezes as her surrogate decision makers. Code status: Full code. Exam Narrative: GENERAL: Well-appearing, well-nourished, and in no acute distress. HEAD: Normocephalic, atraumatic. EYES: PERRL and EOMI. CHEST: Clear to auscultation. No respiratory distress. HEART: Regular rate and rhythm. Normal peripheral pulses. ABDOMEN: Soft, nontender, nondistended. EXTREMITIES: Normal range of motion. No edema. SKIN: Warm, dry, no rash. NEURO: Alert and oriented x3. PSYCH: Normal mood and affect. Course Reevaluation(s) Reevaluation #1: Patient resting comfortably and informed of results. Patient tachycardic into the 110's with ambulation. Given prolonged bedrest and surgery as well as dyspnea we will rule out PE. Date: 12/17/22 Time: 02:45 Reevaluation #2: Nursing staff unable to get a peripheral line on the patient. I have offered the patient an additional attempt by me with ultrasound guidance or placement of central line trauma pulmonary embolism. Patient declines procedure and does not wish to jackson
--- NOTE | 2022-12-17 03:43 | PC.NURSE ---
Pt. stuck for IV. pt. yelling in pain. pt. refused CTA, ERP and CT made aware
[2022-12-17 04:00] VITALS: BP 100/60; PULSE 60; RESP 19; O2SAT 99
== END 2022-12-17 04:20 | disposition home or self-care (01) ==
PROVIDERS: Emergency Provider Emergency Medicine
DX: R06.00 Dyspnea, unspecified (principal); Z85.830 Personal history of malignant neoplasm of bone
CPT/HCPCS: 36415; 71046; 80053; 83880; 84484; 85025; 85610; 85730; 87636; 93005; 99284

== ENCOUNTER 2024-01-28 13:42 | Outpatient (CLI) | payer OTHER, SELFPAY ==
--- NOTE | ~2024-01-28 | XR_ITS ---
EXAMINATION:XR_[id number]_CR DATE: 01/28/2024 14:13 INDICATION: Neck pain TECHNIQUE: AP, lateral, and odontoid views of the cervical spine are provided. COMPARISON: None FINDINGS: There is straightening of the cervical spine which can be positional or due to muscular spa sm. Alignment is normal. The odontoid process is intact. No fracture is identified. Vertebral body he ights and disk spaces are normal. Prevertebral soft tissues are normal. IMPRESSION: 1. No acute osseous abnormality. Reviewed, dictated and finalized at location F. ASS POWER PLANT SUPERINTENDENT
--- NOTE | ~2024-01-28 | XR_ITS ---
EXAMINATION: XR thoracic spine 3V DATE: 01/28/2024 14:13 INDICATION: Thoracic back pain TECHNIQUE: AP, lateral and lateral swimmer's views of the thoracic spine were obtained. COMPARISON: None. FINDINGS: Bone alignment is normal. There is no fracture. There is mild loss of intervertebral disc s pace height at a few levels in the thoracic spine. IMPRESSION: 1. Mild thoracic spondylosis without acute findings. Reviewed, dictated and finalized at location F. ER TRAPPER
--- NOTE | ~2024-01-28 | XR_ITS ---
EXAMINATION: XR lumbar spine 2-3V DATE: 01/28/2024 14:11 INDICATION: Back pain TECHNIQUE: Anteroposterior and lateral views of the lumbar spine, and cone-down lateral view of the l umbosacral junction were obtained. COMPARISON: None. FINDINGS: Bone alignment is normal. There is no fracture. There is mild loss of intervertebral disc s pace height at L1-2 and L5-S1. There is mild facet joint osteoarthritis at L5-S1. The vertebral body heights are maintained. IMPRESSION: 1. Mild lumbar spondylosis. Reviewed, dictated and finalized at location F. NSIGNMENT CLERK IMPRESSION: 1. Mild lumbar spondylosis.
== END 2024-01-28 13:43 | disposition home or self-care (01) ==
LOC: ANHBWCIMG 13:43
PROVIDERS: PCP Nurse Practitioner Adult Health; Visit Provider Nurse Practitioner Adult Health
DX: M47.894 Other spondylosis, thoracic region (principal); M47.896 Other spondylosis, lumbar region
CPT/HCPCS: 72040; 72072; 72100

== ENCOUNTER 2024-06-21 15:41 | Emergency (ER) | payer OTHER, SELFPAY ==
[2024-06-21 15:43] VITALS: BP 103/51; PULSE 102; RESP 20; TEMP 36.7; O2SAT 95
[2024-06-21] MEDS: KETOROLAC 30 MG/ML VIAL (*BKC) IM (16:58)
--- NOTE | 2024-06-21 17:10 | ED.DENTAL ---
HPI - Dental/Oral General Chief complaint: Dental/Oral Stated complaint: toothe pain Time Seen by Provider: 06/21/24 15:49 Source: patient Mode of arrival: ambulatory Limitations: no limitations History of Present Illness HPI Narrative: This is a 28-year-old female who presents to the ED for chief complaint dental pain on the left side of the past week. Reports increasing pain suddenly today. She has not seen a dentist. She has been taking ibuprofen with some relief at home. Denies fevers, chills, dysphagia, drooling, facial swelling. 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 Previously on enalapril. CHF (congestive heart failure), NYHA class I Osteosarcoma of right femur (2004) Surgical History Surgical History (Updated 06/06/24 @ 11:03 by Yuri Aguilar MD) History of section (12/13/21) History of cholecystectomy History of orthopedic surgery 5 surgeries on the right lower extremity including right knee replacement related to osteosarcoma diagnosed at the age of 10. Family History Family History Father Diabetes mellitus Heart disease Mother Depression Grandparent Breast cancer Grandparent Diabetes mellitus Hypertension Heart disease Other Family history non-contributory Social History Social History (Updated 06/06/24 @ 10:16 by Sabrina Flores CMA) Social History: The patient lives with her and son in [place]. Nonsmoker. No alcohol or illicit substance abuse. She designates her Jeffrey or her mother Amada Menezes as her surrogate decision makers. Code status: Full code. Smoking status: Never smoker Alcohol intake: current Drinks per week: 1 Substance use: never Do You Feel Safe in your Home?: Yes Lack of Transportation: YES Lack of Food: Sometimes True Current Housing: I Have Housing Concerned About Future Housing: No Difficulty Paying Gas/Electric Bills: YES Difficulty Paying for Meds: No Currently Unemployed: No Education: Associate Degree Difficulty w/ Childcare or Family Care: No Exam Narrative: GENERAL: Well-appearing, well-nourished, and in no acute distress. HEAD: Normocephalic, atraumatic. EYES: PERRLA and EOMI. ENT: Decayed left posterior most molar. no discrete abscess. No facial swelling. Nares clear, no rhinorrhea or epistaxis. Mucous membranes moist. Oropharynx without tonsillar hypertrophy exudate or other lesions. NECK: Supple. No adenopathy or masses. CHEST: No respiratory distress. Clear to auscultation. No wheezes rales or rhonchi HEART: Regular rate and rhythm. No murmur heard. Normal peripheral pulses. ABDOMEN: Soft, nontender, nondistended, normal active bowel sounds. MSK: Normal range of motion. No edema. SKIN: Warm, dry, no rash. NEURO: Alert and oriented x4. No focal deficits. PSYCH: Normal mood and affect. Course Vital Signs Vital signs: Vital Signs Temperature 98.1 F 06/21/24 15:43 Pulse Rate 102 H 06/21/24 15:43 Respiratory Rate 20 06/21/24 15:43 Blood Pressure 103/51 L 06/21/24 15:43 Pulse Oximetry 95 06/21/24 15:43 Oxygen Delivery Room Air 06/21/24 15:43 Temperature 98.9 F 06/21/24 17:30 Pulse Rate 75 06/21/24 17:30 Respiratory Rate 18 06/21/24 17:30 Blood Pressure 132/76 06/21/24 17:30 Pu
[2024-06-21 17:30] VITALS: BP 132/76; PULSE 75; RESP 18; TEMP 37.2; O2SAT 18
== END 2024-06-21 17:32 | disposition home or self-care (01) ==
PROVIDERS: Emergency Provider Physician Assistant; PCP Nurse Practitioner Adult Health
DX: K02.9 Dental caries, unspecified (principal); I50.9 Heart failure, unspecified
CPT/HCPCS: 96372; 99283; J1885

== ENCOUNTER 2024-07-15 10:08 | Outpatient (CLI) | payer OTHER, SELFPAY ==
--- NOTE | ~2024-07-15 | MR_ITS ---
EXAMINATION: MR lumbar spine wo con DATE: 07/15/2024 10:39 INDICATION: Low back pain with flexion TECHNIQUE: Magnetic resonance imaging (MRI) of the lumbar spine was performed without intravenous con trast. Sequences included sagittal T2-weighted FSE, sagittal T2-weighted FS FSE, sagittal T1-weighted FSE, and axial T2-weighted FSE. COMPARISON: None FINDINGS: Alignment is normal. Chronic mild likely physiologic anterior wedging at T11-L1. There are Schmorl's nodes along the majority of the endplates from the superior endplate of T11 through the superior endp late of L4. Mild fibrovascular degenerative endplate change along the superior endplate of L3. Marrow signal is otherwise normal. Moderate disc height loss at T12-L1 and L1-L2. Mild disc height loss at T10-T11, T11-T12, L2-L3 and L4-L5. The conus medullaris terminates at L2-L3. There is normal signal i n the caudal spinal cord. Paravertebral soft tissues are unremarkable. The following disc levels are specifically discussed: T12-L1: Disc is minimally bulging. There is mild bilateral facet joint osteoarthritis. There is no ne ural foraminal stenosis. There is normal central canal stenosis. L1-L2: Disc is mildly bulging. There is mild bilateral facet joint osteoarthritis. There is no neural foraminal stenosis. There is mild central canal stenosis. L2-L3: Disc is mildly bulging. There is mild bilateral facet joint osteoarthritis. There is minimal b ilateral neural foraminal stenosis. There is mild central canal stenosis. L3-L4: Disc is mildly bulging. There is mild bilateral facet joint osteoarthritis. There is mild left and minimal right neural foraminal stenosis. There is mild central canal stenosis. L4-L5: Disc is minimally bulging. There is mild bilateral facet joint osteoarthritis. There is mild b ilateral neural foraminal stenosis. There is minimal central canal stenosis. L5-S1: Disc is minimally bulging. There is mild bilateral facet joint osteoarthritis. There is no christopher ral foraminal stenosis. There is no central canal stenosis. IMPRESSION: 1. Mild to moderate upper lumbar and lower thoracic predominant spondylosis. Reviewed, dictated and finalized at location A.
== END 2024-07-15 10:09 | disposition home or self-care (01) ==
PROVIDERS: PCP Nurse Practitioner Adult Health; Visit Provider Anesthesiology Pain Medicine
DX: M54.51 Vertebrogenic low back pain (principal); M47.817 Spondylosis without myelopathy or radiculopathy, lumbosacral region; G89.29 Other chronic pain; M47.814 Spondylosis without myelopathy or radiculopathy, thoracic region
CPT/HCPCS: 72148

== ENCOUNTER 2024-07-26 13:30 | Outpatient (RCR) | payer OTHER, SELFPAY ==
--- NOTE | 2024-05-06 16:20 | OPREHPOC ---
Outpatient Therapy Plan of Care This is a Multidisciplinary Plan of Care that may contain components documented by all disciplines (PT, OT, and ST.) PT Problem 1 PT Problem #1 Knowledge Deficit PT Goal 1 Goal *indep with HEP Target Visit 10 PT Problem 2 PT Problem #2 Pain PT Goal 1 Goal 1* pain rating of back at worst 6/10 2* Oswestry self assessment rating of 40% limitation 3* pt report walking/activity tolerance of 30 minutes Target Visit 10 PT Problem 3 PT Problem #3 Impaired Range of Motion PT Goal 1 Goal increase R knee ROM to improve gait pattern and mechanics of walking in sitting R knee: 1* extension (-20') 2* flexion 100' Target Visit 10 PT Problem 4 PT Problem #4 Impaired Strength PT Goal 1 Goal increase strength of Trunk and R LE, to improve posture and stability 1* pt able to perform 20 reps of mat strengthening exercises 2* 2 minute walking test distance of 350' with pain increase to 6/10 Target Visit 10
--- NOTE | 2024-05-06 16:21 | PTOPEVAL1 ---
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; have not had any falls; activity: use one crutch at all times; have 2 year old child; does most of the home tasks, she can only do light tasks; Reported Pain Level Pain Score Self Report Additional Pain Score Comments pain range of back pain in the past week 4-9/10; constant back pain--miserable no matter what she does decrease pain: heating pad, hydrocodone-take about 1 every other day sleeping awaken at least 1x/night due to pain; walking/standing 10-15 min of activity tolerance R knee pain range of 2-6/10 in past week; increase pain with standing, walking, activity Assessment PT Clinical Summary Georgina has the diagnosis of R knee pain and low back pain, muscular dysfunction. Her medical history includes osteosarcoma of R femur with 5 TKR- last one in 2018. Her chronic pain has increased lately. Oswestry self assessment rating of 52% limitation in activity level. Her activity level, walking and sleeping are affected by her back pain. With the evaluation: she has weakness of R hip and knee with decreased R knee ROM; gait pattern is affected by her limited knee ROM and strength; 2 minute walking test distance of 275' with reported SOB and pain increase to 8/10. Skilled PT services are indicated for aquatic and land treatment: modalities to decrease pain, therapeutic exercises and education for HEP, gait and body mechanics. Plan of Care Interventions Aquatic Therapy,Gait Training,Hot Pack/Cold Pack, Manual Therapy,Mechanical Traction,Neuro Re- education,Patient Education,Therapeutic Activities,Ther
--- NOTE | 2024-05-20 11:16 | PCPTNOTE ---
Pt canceled due to .
--- NOTE | 2024-06-30 16:20 | OPREHPOC ---
Outpatient Therapy Plan of Care This is a Multidisciplinary Plan of Care that may contain components documented by all disciplines (PT, OT, and ST.) PT Problem 1 PT Problem #1 Knowledge Deficit PT Goal 1 Goal *indep with HEP Target Visit 10 Progress Met Comment 06-30-24 progress goal met continue towards goal to progress education PT Goal 2 Target Visit 18 PT Problem 2 PT Problem #2 Pain PT Goal 1 Goal 1* pain rating of back at worst 6/10 2* Oswestry self assessment rating of 40% limitation 3* pt report walking/activity tolerance of 30 minutes Target Visit 10 Progress Not Met Comment 06-30-24 progress goals not met continue towards goals PT Goal 2 Target Visit 18 PT Problem 3 PT Problem #3 Impaired Range of Motion PT Goal 1 Goal increase R knee ROM to improve gait pattern and mechanics of walking in sitting R knee: 1* extension (-20') 2* flexion 100' Target Visit 10 Progress Not Met Comment 06-30-24 progress goals not met; improved with #1 to (-35') continue towards goal PT Goal 2 Target Visit 18 PT Problem 4 PT Problem #4 Impaired Strength PT Goal 1 Goal increase strength of Trunk and R LE, to improve posture and stability 1* pt able to perform 20 reps of mat strengthening exercises 2* 2 minute walking test distance of 350' with pain increase to 6/10 Target Visit 10 Progress Partially Met Comment 06-30-24 progress goals not met, improved with both--#1 achieved 20
--- NOTE | 2024-06-30 16:21 | PTOPPROG ---
Assessment and note entered by Meenu Marroquin, PT Progress Report Assessment Status Progress Diagnosis muscular disorder, R knee pain, back pain Onset January 2024 Subjective Information pleased with her progress- knee is straighter; have been doing the exercises; saw pain management for back-- to have x ray and MRI of her back and possibly get injections; want to continue with more therapy; PAIN range of back in the past week 4-8/10; pain range of R knee in past week 3-6/10; walking tolerance reported at 10 minutes--due to back pain; Assessment PT Clinical Summary Georgina has received 8 PT sessions. She has made good progress with her chronic issues with her R knee and back. Compared to the initial evaluation: increase in knee extension active & passive ROM and strength of R LE and trunk; reported walking tolerance is the same at 10-15 minutes; self assessment Oswestry functional activity rating of 52% limitation is same; pain rating of R knee and back are within 1 rating; 2 minute walking test distance increased from 275' with pain of 8/10 in back, to 320' with pain rating 6/10; R knee extension: active in sitting (-35') and supine stretch (-14'); knee flexion in sitting, same at 85'. The goals were partially met. Continue PT treatments on land and in the water. Plan of Care Interventions Aquatic Therapy,Gait Training,Hot Pack/Cold Pack, Manual Lymph Drainage,Mechanical Traction,Neuro Re -education,Patient/Caregiver Education,Therapeutic Activities,Therapeutic Exercise,Ultrasound,Other Other Interventions IASTM, dry needling PT Services Indicated Yes Treatment Frequency and 2x/wk for 10 visits Duration These treatments will address the objective and functional deficits as defined above. The patient will be advanced safely and appropriately in order for the patient to progress towards his/her prior level of function. Additional exercises will be introduced and as well as a comprehensive home exercise program upon discharge, if needed, ?to ensure carryover of functional gains achieved in the clinic. This treatment plan has been reviewed and agreement upon by the patient.
--- NOTE | 2024-07-29 08:56 | PCPTNOTE ---
This treatment is being continued on visit number [id number] Please see documentation on both accounts to view progress. Completed interventions, outcomes, and problems have been marked as Inactive to facilitate the copying of the Care plan routine for recurring accounts.
== END 2024-07-28 10:28 | disposition home or self-care (01) ==
LOC: ANHPT 13:30
PROVIDERS: PCP Nurse Practitioner Adult Health; Visit Provider Nurse Practitioner Adult Health
DX: M25.561 Pain in right knee (principal); T45.1X5A Adverse effect of antineoplastic and immunosuppressive drugs, initial encounter; G62.0 Drug-induced polyneuropathy; R29.898 Other symptoms and signs involving the musculoskeletal system; M54.9 Dorsalgia, unspecified
CPT/HCPCS: 97110; 97113; 97116; 97140; 97162; 97530

== ENCOUNTER 2024-08-05 13:45 | Outpatient (RCR) | payer OTHER, SELFPAY ==
--- NOTE | 2024-07-29 09:04 | PCPTNOTE ---
This treatment is being continued from visit number [id number]. Please see documentation on both accounts to view progress. Completed interventions, outcomes, and problems have been marked as Inactive to facilitate the copying of the Care plan routine for recurring accounts.
--- NOTE | 2024-08-04 10:53 | PCPTNOTE ---
Pt. did not show for her PT appointment this date. Called and left a voice mail reminding pt. of her upcoming appointment tomorrow.
--- NOTE | 2024-08-08 09:35 | PTOPDC ---
Assessment and note entered by Meenu Marroquin, PT Discharge Report Assessment Status Discharge - Pt Not Present Diagnosis muscular disorder, R knee pain, back pain Onset January 2024 Subjective Information pt canceled her remaining PT appointments, stated therapy was not helping her. And having more knee and back pain. Assessment PT Clinical Summary Georgina has received 12 PT sessions, aquatic and land treatments. She canceled her remaining appointments due to above--therapy is not helping and she is having more pain. Discharge PT. The goals were not addressed. Plan of Care PT Services Indicated No
== END 2024-08-08 11:28 | disposition home or self-care (01) ==
LOC: ANHPT 13:45
PROVIDERS: PCP Nurse Practitioner Adult Health; Visit Provider Nurse Practitioner Adult Health
DX: M25.561 Pain in right knee (principal); T45.1X5A Adverse effect of antineoplastic and immunosuppressive drugs, initial encounter; G62.0 Drug-induced polyneuropathy; R29.898 Other symptoms and signs involving the musculoskeletal system; M54.9 Dorsalgia, unspecified
CPT/HCPCS: 97113

== ENCOUNTER 2024-08-30 10:08 | Day surgery (SDC) | payer OTHER, SELFPAY ==
[2024-08-16 11:47] VITALS: BMI 33.0
--- NOTE | ~2024-08-30 | XR_ITS ---
EXAMINATION: XR fluoroscopy no charge DATE: 08/30/2024 10:55 CDT INDICATION: DMITRY L3,L4,L5 NERVE BLOCK . TECHNIQUE: 11 fluoroscopic images and 2 cine clips of the lumbar spine were obtained during bilateral L3, L4, and L5 nerve block, performed by Yuri Aguilar MD. I was not present during the procedure . Fluoroscopy exposure time was 29.7 seconds. Air Kerma mGy. COMPARISON: None FINDINGS/IMPRESSION: Fluoroscopic documentation of bilateral L3, L4, and L5 nerve block. Please refer to the operative not e for complete procedural details . Reviewed, dictated and finalized at location K.
--- NOTE | 2024-08-30 06:05 | WPDHPUPDATE1 ---
History and Physical Update Update Date/Time: 08/30/24 06:05 History and Physical has been reviewed, including an updated exam of the patient. There are NO changes in the patient's condition. Risks, benefits, and alternatives have been discussed and questions answered. Patient agrees to proceed with procedure.
--- NOTE | 2024-08-30 06:07 | W.PM.PROC2 ---
Procedure Note - Detailed Date of Procedure 08/30/24 Pre-op Diagnosis Lumbosacral Spondylosis, chronic low back pain Post-op Diagnosis Same Procedure Performed Diagnostic bilateral Lumbar Medial Branch/Dorsal Ramus Blocks at L3, L4, L5 Treating the bilateral L4-5, L5-S1 Facet Joints Under Fluoroscopic Guidance and with Contrast Control. ( 4 levels blocked). Surgeon Yuri Aguilar MD Director Digital Analytics None. Anesthesia Local Description of Procedure INFORMED CONSENT: Risks, benefits and alternatives to the procedure were discussed in detail with the patient who expressed explicit understanding and consent to proceed. Patient was informed verbally and in written form regarding the risks associated with the procedure including the low risk of serious infection, bleeding/bruising, allergic reaction, nerve or organ injury, paralysis, procedural site pain or discomfort, worsening pain and/or mobility, failure to treat and/or disfigurement. The patient expressed explicit understanding and consent to proceed. All materials required for the procedure were available prior to procedure start. Site and side were marked prior to procedure and confirmed in the presence of the patient. PROCEDURE IN DETAIL: The patient was brought to the procedural suite and placed in the prone position. Patient was made comfortable with use of pillows under the head/chest, hips and ankles. Skin overlying the injection site on the affected side(s) was prepared broadly with ChloraPrep applicator and draped in a sterile manner. Aseptic technique was used throughout. The endplates of the vertebral bodies at the site(s) of interest were aligned in the AP view. Ipsilateral oblique angulation was utilized to optimize visualization of the intersection between the superior articulating process and transverse process at each target site. Local anesthesia was established by infiltration with approximately 5 mL of 1% lidocaine via a 1-1/2 inch 27-gauge needle. A 25-gauge 5.0 inch Quincke spinal needle was advanced until the needle tip contacted periosteum at the target site, right L3. Lateral view was utilized to confirm the appropriate placement of the needle tip just anterior to the facet line and superior to the pedicle. In the Lateral view, 0.25 mL of Omnipaque 300 contrast medium was injected after negative aspiration for CSF, blood or other bodily fluid, showing appropriate extra-articular spread of contrast without evidence of intravascular, foraminal or intrathecal placement. A 0.5 mL solution of 0.5% PF bupivacaine was injected after negative repeat aspiration. Appropriate spread of the injectate was confirmed with washout of previously injected contrast. No parasthesias were elicited. Needle was removed completely intact without difficulty. The same exact procedure was repeated for all remaining levels on the ipsilateral side, right L4, L5 medial branches/dorsal ramus, modified as necessary to accommodate for the new target location with identical findings and results and no evidence of complication. The same exact procedure was repeated for all remaining levels on the contralateral side, left L3, L4, L5 medial branches/dorsal ramus, modified as necessary to accommodate for the new target location with identical findings and results and no evidence of complication. Images were saved and documented in the patient chart. Patient's skin was cleaned and sterile bandage applied. The patient tolerated the procedure well. The patient was transported to the recovery area in stable condition where they were observed for an appropriate amount of time prior to discharge, without evidence of complication. Patient was instructed on the appropriate completion of a pain diary over the next 12-24 hours. The patient was instructed to avoid excessive activity for the next 48 hours, including climbing and frequent use of stairs. Showers only for 48 hours. They were instructed not to drive or operate heavy machinery for 2
[2024-08-30 10:25] VITALS: BP 104/69; PULSE 88; RESP 16; TEMP 37; O2SAT 99
[2024-08-30 11:03] VITALS: BP 125/64; PULSE 96; RESP 18; O2SAT 99
[2024-08-30 11:10] VITALS: BP 124/58; PULSE 101; RESP 18; O2SAT 97
[2024-08-30] MEDS: LIDOCAINE HCL 1% PF INJ 5 ML VIAL 4 ML INFILTRATE (11:13)
[2024-08-30] MEDS: BUPivacaine HCL 0.5% 10 ML AMP 4 ML INFILTRATE (11:18)
[2024-08-30 11:21] VITALS: BP 111/79; PULSE 93; RESP 20; O2SAT 99
== END 2024-08-30 11:39 | disposition home or self-care (01) ==
PROVIDERS: PCP Nurse Practitioner Adult Health; Visit Provider Anesthesiology Pain Medicine
PROC: (CPT 64493; principal; 2024-08-30 11:30)
DX: M47.817 Spondylosis without myelopathy or radiculopathy, lumbosacral region (principal); M54.59 Other low back pain
CPT/HCPCS: 64493 ×2; 64494 ×2; 99199

== ENCOUNTER 2024-12-20 06:02 | Day surgery (SDC) | payer MEDICARE, MEDICAID, SELFPAY ==
[2024-11-17 09:58] VITALS: BMI 32.8
--- NOTE | ~2024-12-20 | XR_ITS ---
XR fluoroscopy no charge Indication: Epidural bolus pain pump trial TECHNIQUE: Fluoroscopy used during Epidural bolus pain pump trial performed by [Yuri Aguilar MD] on 12/20/2024. 64 fluoroscopic images captured. FINDINGS: Correlate with procedure note. IMPRESSION: Fluoroscopy used during Epidural bolus pain pump trial. Reviewed, dictated and finalized at location A. [facility]SE [facility]
--- NOTE | 2024-12-20 04:32 | PM.HPGS ---
History of Present Illness History of Present Illness Consent: Risks, benefits, and alternatives have been discussed and questions answered. Patient agrees to proceed with procedure. Chief complaint: Other Chronic Pain Narrative: Georgina Avila is a 29 year old female with chronic, recalcitrant and disabling bilateral lumbosacral back And lower extremity pain secondary to degenerative spondylosis and failed knee surgery with failure to respond to aggressive conservative measures including PT, oral and topical analgesics, opioid and nonopioid analgesics, rest, time and activity/behavioral modification over the past 1-2 years who presents for prognostic single bolus morphine epidural trial (pain pump trial) under fluoroscopic guidance and with contrast control. no interval change in her overall medical history, medications, allergies or symptoms. Denies acute illness, fever/chills, dysuria, productive cough or signs of infection or new neurologic change. Review of Systems Review of Systems: Patient denies any new infectious, allergic, cardiopulmonary, neurologic or constitutional symptoms or changes in activity tolerance or exercise capacity including new or progressive SOB/BRAGG, peripheral edema, productive cough, dysuria, nausea/vomiting, diarrhea, weight change, fevers/chills/night sweats, new or progressive neurologic deficit, cognitive or mood changes since last seen, except as documented in the HPI. 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 Previously on enalapril. CHF (congestive heart failure), NYHA class I Osteosarcoma of right femur (2004) Surgical History Surgical History History of section (12/13/21) History of cholecystectomy History of orthopedic surgery 5 surgeries on the right lower extremity including right knee replacement related to osteosarcoma diagnosed at the age of 10. Family History Family History Father Diabetes mellitus Heart disease Mother Depression Grandparent Breast cancer Grandparent Diabetes mellitus Hypertension Heart disease Other Family history non-contributory Social History Social History (Updated 11/07/24 @ 08:16 by Sabrina Flores [facility]) Social History: The patient lives with her and son in [place]. Nonsmoker. No alcohol or illicit substance abuse. She designates her Jeffrey or her mother Amada Menezes as her surrogate decision makers. Code status: Full code. Smoking status: Never smoker Second hand tobacco smoke exposure: No Alcohol intake: never Drinks per week: 2 Substance use: never Substance use type: does not use Do You Feel Safe in your Home?: Yes Lack of Transportation: YES Lack of Food: Never True Current Housing: I Have Housing Concerned About Future Housing: No Difficulty Paying Gas/Electric Bills: YES Difficulty Paying for Meds: No Currently Unemployed: No Education: Associate Degree Difficulty w/ Childcare or Family Care: No Living arrangements: with family Spiritual care concerns: No Meds Home Medications and Allergies Home Medications ?Medication ?Instructions ?Recorded ?Confirmed ?Type carvedilol 3.125 mg tablet 3.125 mg PO Q12H 09/14/23 11/17/24 History sacubitril 24 mg-valsartan 26 mg 1 tablet PO BID 09/14/23 11/17/24 History tablet (Entresto) gabapentin 300 mg capsule 600 mg (2 x 300 mg) PO QHS #180 04/12/24 11/17/24 Rx caps alprazolam 0.5 mg tablet 0.5 mg PO BID PRN anxiety #28 tabs 06/15/24 11/17/24 Rx hydrocodone 5 mg-acetaminophen 325 1 tablet PO Q8H PRN pain #30 tabs 08/29/24 11/17/24 Rx mg tablet ropinirole 0.5 mg tablet See Rx Instructions .Route 10/11/24 11/17/24 Rx .COMPLEX #180 tabs naloxone 4 mg/actuation nasal spray 4 mg intranasal Q2-3M PRN opioid 11/07/24 11/17/24 Rx overdose #2 ea escitalopram oxalate 10 mg tablet See Rx Instructions .Route 11/08/24 11/17/24 Rx .COMPLEX #90 tabs methylprednisolone 4 mg tablets in See Rx Instructions PO PER PKG DIR 12/19/24 Rx a dose pack (Medrol (Galdino)) #21 ea Allergies Allergy/AdvReac Type Severity Reaction Status Date / Time ceftazidime Allergy Hives Verified 12/08/24 10:45 Exam Narrative: The patient's physical exam is essentially unchanged from prior examination on 11/07/2024. Specifically, patient demonstrates normal lung capacity, tidal volume and respiratory rate without wheezes, crackles, rales or rubs. Heart rate and rhythm are regular without murmurs, gallops or rubs. No JVD. Pulses 2+ globally without increasing peripheral edema. AAOx3 with no evidence of confusion, intoxication or altered mental state, NC/AT without acute distress or altered consciousness. Speech, cognition, mood, insight and judgment at baseline and within normal limits. Assessment and Plan Assessment and plan (1) Lumbosacral spondylosis: Code(s): M47.817 - Spondylosis without myelopathy or radiculopathy, lumbosacral region Status: Acute (2) Vertebrogenic low back pain: Code(s): M54.51 - Vertebrogenic low back pain Status: Acute (3) Neuropathy: Code(s): G62.9 - Polyneuropathy, unspecified Status: Acute (4) Back pain: Code(s): M54.9 - Dorsalgia, unspecified Status: Acute (5) Right knee pain: Code(s): M25.561 - Pain in right knee Status: Acute (6) dedicated intermodal truck driver (current) use of opiate analgesic: Code(s): Z79.891 - dedicated intermodal truck driver (current) use of opiate analgesic Status: Acute (7) History of osteosarcoma: Code(s): Z85.830 - Personal history of malignant neoplasm of bone Status: Acute (8) Bilateral sacroiliitis: Code(s): M46.1 - Sacroiliitis, not elsewhere classified Status: Acute (9) History of orthopedic surgery: Code(s): Z98.890 - Other specified postprocedural states Status: Acute (10) Chronic pain: Code(s): G89.29 - Other chronic pain Status: Acute Plan proceed as planned with intrathecal pain pump trial via single epidural bolus of preservative-free morphine With extended outpatient observation under fluoroscopic guidance.
--- NOTE | 2024-12-20 04:38 | WPDHPUPDATE1 ---
History and Physical Update Update Date/Time: 12/20/24 04:38 History and Physical has been reviewed, including an updated exam of the patient. There are NO changes in the patient's condition. Risks, benefits, and alternatives have been discussed and questions answered. Patient agrees to proceed with procedure.
--- NOTE | 2024-12-20 05:00 | P.OP_ITS ---
Procedure Note - Detailed Date of Procedure 12/20/24 Pre-op Diagnosis Other Chronic Pain Post-op Diagnosis Same Procedure Performed Lumbar Interlaminar Epidural Needle Placement at T12-L1 for single Epidural Bolus of Opioid Analgesic (Pump Trial) under Fluoroscopic Guidance with Contrast Control. Surgeon Yuri Aguilar MD De Icer Finisher none. Anesthesia Local Description of Procedure INFORMED CONSENT: Risks, benefits and alternatives to the procedure were discussed in detail with the patient who expressed explicit understanding and consent to proceed. Patient was informed verbally and in written form regarding the risks associated with the procedure including the low risk of serious infection, bleeding/bruising, allergic reaction, nerve or organ injury, paralysis, procedural site pain or discomfort, worsening pain and/or mobility, failure to treat and/or disfigurement. The patient expressed explicit understanding and consent to proceed. All materials required for the procedure were available prior to procedure start. Site and side were marked prior to procedure and confirmed in the presence of the patient. PROCEDURE IN DETAIL: The patient was brought to the procedural suite and placed in the prone position. Patient was made comfortable with use of pillows under the head/chest, hips and ankles. Appropriate monitoring initiated. Skin overlying the injection site was prepared broadly with ChloraPrep applicator and draped in a sterile manner. Aseptic technique was employed throughout. The endplates of the vertebral body at the site of interest were aligned in the AP view. Slight caudal tilt and ipsilateral oblique angulation was utilized to optimize visualization of the targeted posterior intervertebral foramen ( T11-L1). Local anesthesia was established by infiltration with approximately 5 mL of 0.5% lidocaine via a 1-1/2 inch 27-gauge needle. An 20-gauge 4-inch Tuohy epidural needle was advanced intermittently until appropriate loss of resistance to air was identified via plastic loss of resistance syringe. Lateral view was used to confirm the appropriate positioning of the needle tip within the posterior epidural space. In the AP view, 2.0 mL of [IsoVue 300M] contrast medium was injected after negative aspiration for CSF, blood or other bodily fluid, showing appropriate epidural spread of contrast without evidence of intravascular or intrathecal placement. A 20-gauge epidural catheter with was advanced to [T10-11] disk space. Lateral view was utilized to confirm catheter placement in the posterior epidural space. After negative aspiration, [2.0] ml of the same contrast medium was injected showing appro priate epidurogram without evidence of intravascular or intrathecal placement. A 3.0ml test dose of 1.5% lidocaine with epinephrine was injected via the catheter and patient monitored for 2 minutes to assess for intrathecal placement. [Blood Pressure, heart rate, lower extremity sensation and motor strength were tested and compared to baseline without significant change.] [4] ml of a [1]mg/ml aqueous solution of preservative free [morphine] was injected after negative repeat aspiration. Appropriate spread of the injectate was confirmed with washout of previously injected contrast. No parasthesias were elicited. Needle was removed over the catheter without difficulty. Images were saved and documented in the patient chart. Patient's skin was cleaned and sterile bandage applied. The patient tolerated the procedure well. The patient was transported to the recovery area in stable condition where they were observed and monitored (RR, HR, BP, O2 Sats, Pain level) for an appropriate amount of time prior to discharge, without evidence of complication. [After approximately one hour, the patient was evaluated for neurologic deficit, pain relief and side effects with results as below.] [At the end of the same day trial, the catheter was removed completely intact without difficulty, with no immediate complications and without paresthesia, signs of bleeding, CSF leak or new neurologic deficit. Sterile bandage applied.] Patient instructed to remain in the presence of a responsible adult to monitor for the next 48 hours. The patient was instructed to avoid excessive activity for the next 48 hours, including climbing and frequent use of stairs. Showers only for 48 hours. They were instructed not to drive or operate heavy machinery for 24 hours. They are to monitor for pruritus, sedation/confusion, severe headaches, fevers, chills, night sweats, erythema/swelling at the site or any other signs of infection, bleeding/bruising, bowel or bladder changes as well as new pain, weakness or numbness in the upper or lower extremity. Should they notice these changes, they are instructed to call our office immediately or report directly to the nearest Emergency Department if no answer or if after posted office hours. COMPLICATIONS: [None] COMMENTS: [Catheter was redosed to obtain more optimal analgesia 1 hour after initial dose without complication.] [Total dose:[ ] mg [Morphine].] [No side effects of nausea, pruritus, somnolence, hallucinations noted.] [None] EXPOSURE: Time: []s, Dose: []mGy CONTRAST WASTED: [11]mL [Isovue 300M]. [facility] Billing Surgery - Charge Forward: Surgery Billing
--- NOTE | 2024-12-20 05:16 | W.PM.PROC2 ---
Procedure Note - Detailed Date of Procedure 12/20/24 Pre-op Diagnosis Other Chronic Pain Post-op Diagnosis Same Procedure Performed Thoracolumbar Interlaminar Epidural Needle Placement at T11-12 for Single Prognostic Epidural Bolus of Opioid Analgesic (Pump Trial) under Fluoroscopic Guidance with Contrast Control. Surgeon Yuri Aguilar MD It Solutions Architect None. Anesthesia Local Description of Procedure INFORMED CONSENT: Risks, benefits and alternatives to the procedure were discussed in detail with the patient who expressed explicit understanding and consent to proceed. Patient was informed verbally and in written form regarding the risks associated with the procedure including the low risk of inadvertent dural puncture resulting in CSF leak and subsequent acute or chronic spinal headache, serious systemic or local infection requiring additional surgery, bleeding/bruising or blood clot, allergic reaction, nerve /spinal cord or organ injury resulting in temporary or permanent weakness, paralysis, numbness, pain, deformity or bowel or bladder incontinence, procedural site pain or discomfort, worsening pain and/or mobility, failure to treat and/or disfigurement, as well as the risk of opioid overdose resulting in sedation, cognitive impairment, hypoxia, coma, , or under dose causing withdrawal symptoms or untreated pain. The patient expressed explicit understanding and consent to proceed despite the potential risks with the agreement that potential benefits far outweigh potential for harm. All materials required for the procedure were available prior to procedure start. Site and side were marked prior to procedure and confirmed in the presence of the patient. PROCEDURE IN DETAIL: The patient was brought to the procedural suite and placed in the prone position. Patient was made comfortable with use of pillows under the head/chest, hips and ankles. Appropriate monitoring initiated. Skin overlying the injection site was prepared broadly with ChloraPrep applicator and draped in a sterile manner. Aseptic technique was employed throughout. The endplates of the vertebral body at the site of interest were aligned in the AP view. Slight caudal tilt and ipsilateral oblique angulation was utilized to optimize visualization of the targeted posterior intervertebral foramen at T12-L1. Local anesthesia was established by infiltration with approximately 5 mL of 0.5% lidocaine via a 1-1/2 inch 27-gauge needle. A 20-gauge 4-inch Tuohy epidural needle was advanced intermittently until appropriate loss of resistance to air was identified via plastic loss of resistance syringe. Lateral view was used to confirm the appropriate positioning of the needle tip within the posterior epidural space. In the AP view, 2.0 mL of Omnipaque 300 contrast medium was injected after negative aspiration for CSF, blood or other bodily fluid, showing appropriate epidural spread of contrast without evidence of intravascular or intrathecal placement. A 3.0ml test dose of 1.5% lidocaine with epinephrine was injected via the epidural needle and patient was monitored for no less than 2 minutes to assess for signs intrathecal or intravascular placement. Blood Pressure, heart rate, lower extremity sensation and motor strength were tested and compared to baseline without significant change. 2 ml of a 1mg/ml aqueous solution of preservative free morphine labeled for IT/Epidural use was injected after negative repeat aspiration. Appropriate spread of the injectate was confirmed with washout of previously injected contrast. No parasthesias were elicited. Needle was removed intact and without difficulty. Site was cleaned and sterile bandage was applied. The patient tolerated the procedure well with no evidence of complication. Images were saved and documented in the patient chart. Patient's skin was cleaned and sterile bandage applied. The patient tolerated the procedure well. The patient was transported to the recovery area in stable condition where they were observed and monitored (RR, HR, BP, O2 Sats, Pain level) for an appropriate amount of time prior to discharge (no less than 1 hour), without evidence of complication. After approximately one hour, the patient was evaluated for neurologic deficit, pain relief and side effects with results as below. Patient instructed to remain in the presence of a responsible adult to monitor for the next 72 hours. The patient was instructed to avoid excessive activity for the next 48 hours, including climbing and frequent use of stairs. Showers only for 48 hours. They were instructed not to drive or operate heavy machinery for 72 hours. They are to monitor for pruritus, sedation/confusion, severe headaches, fevers, chills, night sweats, erythema/swelling at the site or any other signs of infection, bleeding/bruising, bowel or bladder changes as well as new pain, weakness or numbness in the upper or lower extremity. Should they notice these changes, they are instructed to call our office immediately or report directly to the nearest Emergency Department if no answer or if after posted office hours. COMPLICATIONS: None COMMENTS: Total dose: 2.0 mg Morphine. No side effects of nausea, pruritus, somnolence, hallucinations noted. CONTRAST WASTED: 26mL Omnipaque 300. Complications No immediate complications Condition Stable Disposition Same day ( Extended stay greater than 1 hour.) [facility] [place] - Charge Forward: Surgery Billing
[2024-12-20 07:12] VITALS: BP 112/82; PULSE 110; RESP 16; TEMP 36.5; O2SAT 99; BMI 34.9
[2024-12-20 07:41] VITALS: BP 132/95; PULSE 124; RESP 22; O2SAT 100
[2024-12-20 07:48] VITALS: BP 135/71; PULSE 116; RESP 22; O2SAT 96
[2024-12-20] MEDS: LIDOCAINE 1% PF INJ 5 ML VIAL 4.5 ML INFILTRATE (07:50)
[2024-12-20 07:54] VITALS: BP 117/73; PULSE 109; RESP 16; O2SAT 98
[2024-12-20] MEDS: LIDOCAINE 1.5% 3 ML INFILTRATE (07:55)
--- NOTE | 2024-12-20 07:57 | SUR.OPER ---
PF Morphine 1ml/ml mixed in 2ml PF NS. Total dose injected by Dr Aguilar: 2ml // Intrathecal trial
[2024-12-20 08:20] VITALS: BP 105/65; PULSE 105; RESP 16; O2SAT 96
[2024-12-20 08:45] VITALS: BP 114/74; PULSE 104; RESP 16; O2SAT 97
--- OUTSIDE RECORDS SUMMARY | 2024-12-22 15:24 | XMS_ITS | Clinical Summary ---
Author Organization [facility] Address [address] [place] [address] Care Team Providers Care Production Shift Supervisor Name Role Phone Lilly Pina GERMÁN-AUTOMOTIVE ELECTRICAL HELPER Primary Care Provider + Source Comments [facility],non-owned Affiliates and Associated Physician Practices is amultiple site organization consisting of ambulatory clinics and hospital sitesin [place], [place], [place] and [place]. This disclosure is being madepursuant to the Care Everywhere program and may not contain all information available regarding this patient. Last updated 18.[facility] Allergies Active Allergy Reactions Criticality Noted Date Comments Ceftazidime Urticaria 07/19/2010 Clindamycin Other 11/30/2015 Facial flushing Codeine 07/19/2010 Tylenol #3 (per mom) Heart racing and 'can't breath' Tegaderm Alginate Ag Skin Reactions 11/08/2015 Breaks skin down Medications * Be aware that medications may not be up to date on this document. Alwaysverify current medications with the patient. Medication Sig Dispensed Refills Start Date End Date Status enalapril (VASOTEC) 10 MG tablet Take 2 tablets by mouth once daily 180 tablet 3 04/28/2019 Active Additional Information Patient not taking.Reported on 06/04/2022 cyclobenzaprine (FLEXERIL) 10 MG tablet 04/14/2019 Active lidocaine (LIDODERM) 5 % patch Apply 1 (one) patch to skin once daily 10 patch 12/29/2020 Active Additional Information Patient not taking.Reported on 06/04/2022 acetaminophen (TYLENOL) 500 MG tablet Take 1 (one) tablet by mouth every 4 hours as needed for Fever or Pain Maximum allowable Acetaminophen amount = 4 Grams (4000 mg) / 24 hours. 60 tablet 05/22/2022 Active ibuprofen (MOTRIN) 600 MG tablet Take 1 (one) tablet by mouth every 6 hours as needed for Pain 60 tablet 05/22/2022 Active Additional Information Patient not taking.Reported on 06/04/2022 sacubitril-valsar beverly (ENTRESTO) 24-26 MG tablet Take 1 (one) tablet by mouth 2 times daily Active carvedilol (COREG) 3.125 MG tablet Take 1 (one) tablet by mouth 2 times daily with morning and evening meal Active furosemide (Lasix) 20 MG tablet Take 1 (one) tablet by mouth once daily for 5 days 5 tablet 09/10/2023 Active escitalopram (Lexapro) 10 MG tablet Take 1 (one) tablet by mouth once daily 12/31/2023 Active rOPINIRole (Requip) 0.5 MG tablet TAKE 1-2 TABLETS BY MOUTH DAILY AT BEDTIME 12/31/2023 Active gabapentin (Neurontin) 300 MG capsule Take 1 (one) capsule by mouth 08/23/2023 Active Active Problems Patient Care Coordination No te Formatting of this note migh t be different from the original. 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 06/10/2013 Dilated cardiomyopathy lee stroud to malignancy 06/10/2013 06/10/2013 425.9 03/07/2011 06/10/2013 Family History Medical History Relation Name Comments Asthma Brother Diabetes Father Cancer Maternal Grandfather Asthma Mother Diabetes Paternal Grandfather Hypertension Paternal Grandfather Diabetes Paternal Grandmother Relation Name Status Comments Brother Father Maternal Grandfather Alive Maternal Grandmother Alive Mother Paternal Grandfather heart f ailure Paternal Grandmother Alive Social History Tobacco Use Types Packs/Day Years Used Date Smoking Tobacco: Never Smokeless Tobacco: Never Tobacco Cessation:Counseling Given: Not Answered Alcohol Use Standard Drinks/Week Comments Yes 0 (1 standard drink = 0.6 oz pur e alcohol) occassionally AUDIT-C Answer Date Recorded Q1: How often do you have a drink containing alcohol? Never 05/22/2022 Q2: How many drinks containi ng alcohol do you have on a typical day when you are drinking? Patient does not drink Q3: How often do you have si x or more drinks on one occasion? Never 05/22/2022 PHQ-2 Answer Date Recorded PHQ2 TOTAL SCORE 0 11/11/2022 Sex and Gender Information Value Date Recorded Sex Assigned at Not on file Gender Identity Not on file Sexual Orientation Not on file Last Filed Vital Signs Vital Sign Reading Time Taken Comments Blood Pressure 118/76 01/08/2024 1:29 PM BLOCK CAPTAIN Pulse 112 01/08/2024 1:29 PM BLOCK CAPTAIN Temperature 36.3 ??C (97.4 ??F) 01/08/2024 1:29 PM CS T Respiratory Rate 16 01/08/2024 1:29 PM BLOCK CAPTAIN Oxygen Saturation 98% 01/08/2024 1:29 PM BLOCK CAPTAIN Inhaled Oxygen Concentration - - Weight 76.1 kg (167 lb 12.3 oz) 01/08/2024 1:29 PM BLOCK CAPTAIN Height 157 cm (5' 1.81 ) 01/08/2024 1:29 PM BLOCK CAPTAIN Body Mass Index 30.87 01/08/2024 1:29 PM BLOCK CAPTAIN Plan of Treatment Health Maintenance Due Date Last Done Comments PAP SMEAR 1993 HEPATITIS C SCREENING 07/21/2011 DTAP/TDAP/TD VACCINES (1 - Tdap) 2012 HEPATITIS B VACCINE (1 of 3 - 19+ 3-dose series) 2012 COVID-19 VACCINE (2023-2 5 season) 2024 03/04/2021, 02/08/2021 INFLUENZA VACCINE (#1) 2024 , 10/15/2021 DEPRESSION SCREENING 11/30/2024 11/11/2022 ZOSTER VACCINE (1 of 2) 2043 HIV SCREENING Completed 10/03/2020 HIB VACCINE Aged Out No longer eligi ble based on patient's age to complete this topic HPV VACCINE Aged Out No longer eligi ble based on patient's age to complete this topic MENINGOCOCCAL (Group B) VACCINE Aged Out No longer eligible b ased on patient's age to complete this topic MENINGOCOCCAL VACCINE Aged Out No tricia mike eligible based on patient's age to complete this topic PNEUMOCOCCAL VACCINE Aged Out No long er eligible based on patient's age to complete this topic Medical Devices Implanted Type Area Community Health Planning Director Device Identifier Shelf Expiration Date Model / Serial / Lot Melecio Bone Palacos R Implanted:Qty: 2 on 11/26/2015 by Wilmer Pollard MD at [facility] Right: Knee [employer] 06/29/2020 [id number] / / [id number] Distal Femur Axial Pin Implanted:Qty: 1 on 11/26/2015 by Wilmer Pollard MD at [facility] Right: Knee Paxer 03/30/2022 [id number] / / [id number] Mid Section, Size 40mm Implanted:Qty: 1 on 11/26/2015 by Wilmer Pollard MD at [facility] Right: Knee Microport 11/30/2022 [id number] / / [id number] Canal Filling Stem Extension 11mm X 140mm Implanted:Qty: 1 on 11/26/2015 by Wilmer Pollard MD at [facility] Right: Knee Seclore [employer] 04/28/2022 [id number] / / [id number] Guardian Tibial Sleeve W/Plugs, Sz 1 Implanted:Qty: 1 on 11/26/2015 by Wilmer Pollard MD at [facility] Right: Knee Se[employer] 07/29/2022 [id number] / / [id number] Repiphysis To Guardian Taper Adapter + Two Pins Implanted:Qty: 1 on 11/26/2015 by Wilmer Pollard MD at [facility] Right: Knee Beard Medical Technology Inc 11/29/2015 [id number] / / [id number] Advanced Onlay All-Poly Patella 32mm Tri-Peg Thickness 8mm Implanted:Qty: 1 on 11/26/2015 by Wilmer Pollard MD at [facility] Right: Knee Beard [employer] Inc 08/29/2023 [id number] / / [id number] Guardian Distal Femoral Right Implanted:Qty: 1 on 11/26/2015 by Wilmer Pollard MD at [facility] Right: Knee [employer] 04/28/2022 [id number] / / [id number] Guardian Med-Section Size 60mm Implanted:Qty: 1 on 11/26/2015 by Wilmer Pollard MD at [facility] Right: Knee Psykosoft [employer] Inc 11/28/2018 [id number] / / [id number] Tibial Hinge Base With Rotational Stop Pin Implanted:Qty: 1 on 11/26/2015 by Wilmer Pollard MD at [facility] Right: Knee Microport 04/30/2023 [id number] / / [id number] Tibial Poly Spacer, Size 8mm Implanted:Qty: 1 on 11/26/2015 by Wilmer Pollard MD at [facility] Right: Knee Psykos[employer] 01/28/2022 [id number] / / [id number] Explanted Type Area Community Health Planning Director Device Identifier Shelf Expiration Date Model / Serial / Lot Guidewire 3.0 X 98cm Explanted:Qty: 1 on 11/26/2015 at [facility] Right: Knee [employer] 01/28/2025 [id number] / / [id number] Procedures Procedure Name Priority Date/Time Associated Diagnosis Comments HIV-1 HIV-2 ANTIGEN/ANTIBODY STAT 10/03/2020 3:39 PM BLOCK CAPTAIN from Last 3 Months or Most Recently Relevant to Health Maintenance Results * HIV-1 HIV-2 ANTIGEN/ANTIBODY (10/03/2020 3:39 PM BLOCK CAPTAIN) HIV Antigen/Antibod y 1 & 2 Non-reacti ve Non-react marialuisa 10/03/2020 4:28 PM BLOCK CAPTAIN [facility] Comment:Neither HIV-1 p24 An tigen nor HIV-1/HIV-2 Antibodies are detected. Blood BLOOD SPECIMEN / Unknown Venipuncture / Unknown 10/03/2020 3:39 PM BLOCK CAPTAIN 10/03/2020 3:56 PM BLOCK CAPTAIN Clif Pulido MD LAB - HEMATOLOGY ORDERABLES Performing Organization Address City/State/[facility] Co de Phone Number [facility] [address] [place] [address], [facility] [phone] from Last 3 Months or Most Recently Relevant to Health Maintenance Additional Health Concerns Infection Onset Date Last Indicated MRSA 11/27/2015 11/27/2015 Advance Directives * Full Code (Latest Code Status on File) Date Activated Date Inactivated Comments 11/26/2015 9:33 PM 12/01/2015 1:24 PM Care Teams Production Shift Supervisor Relationship Specialty Start Date End Date Lilly Pina APRN-GABBY [facility] [place] [id number] PCP - General Nurse Practitioner 06/13/22
--- OUTSIDE RECORDS SUMMARY | 2024-12-22 15:24 | XMS_ITS ---
Author Organization [facility] Address [address] [place] [address] Care Team Providers Care Cotton Wringer Name Role Phone Lilly Pina CHEMICAL PROCESSING SUPERVISOR Unavailable [phone] Lilly Pina CHEMICAL PROCESSING SUPERVISOR Unavailable [phone] Edwardo Jane Primary Care Provider [phone] Active Problems Problem Noted Date Diagnosed Date Rebecca-prosthetic fracture of femur at tip of pros thesis 09/22/2022 Fluid level behind tympanic membrane 08/28/2022 Nausea 08/28/2022 Knee pain 08/28/2022 Acute bacterial sinusitis 08/28/2022 Candidiasis of vagina 08/28/2022 Chest pain 08/28/2022 Constipation 08/28/2022 Dehydration 08/28/2022 Fatigue 08/28/2022 Otitis media 08/28/2022 Pain in throat 08/28/2022 Posterior rhinorrhea 08/28/2022 Sinusitis 08/28/2022 Tenderness 08/28/2022 Traumatic dislocation of knee 08/28/2022 Urinary tract infectious disease 08/28/2022 Vaginal discharge 08/28/2022 Neuropathy 04/01/2022 Osteopenia 03/24/2022 Chronic systolic (congestive) heart failure 05/2022 Congestive heart failure (CMS/HCC) 12/19/2021 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 Past Plans No past plan information found. Radiation Treatments * No radiation treatments are documented for this patient in [facility]. Treatments may have been administered in another system. Lifetime Dose Tracking * Chemical Lifetime Dose Automatic Entry Manual Entr y DLP 1,441 mGycm 1,441 mGycm 0 mGycm
--- OUTSIDE RECORDS SUMMARY | 2024-12-22 15:24 | XMS_ITS ---
Author Organization [facility] Address [address] [place] [address] Care Team Providers Care C++ Professor Name Role Phone Lilly Pina [employer]ING [employer]OC[employer] Primary Care Provider + Active Problems Patient Care Coordination No te [...] Chronic tonsillitis and adenoiditis 03/18/2011 Overview (10/07/2015): Current Oncology Plans No current plan information found. Past Plans No past plan information found. Radiation Treatments * No radiation treatments are documented for this patient in [facility]. Treatments may have been administered in another system. 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
--- OUTSIDE RECORDS SUMMARY | 2024-12-22 15:24 | XMS_ITS | Patient Health Summary ---
Author Organization [facility] Address [address] [place] [address] Care Team Providers Care Water Manager Name Role Phone Lilly Pina GERMÁN-BARTENDER Primary Care Provider + Note from [facility],non-owned Affiliates and Associated Physician Practices is amultiple site organization consisting of ambulatory clinics and hospital sitesin [place], [place]. This disclosure is being madepursuant to the Care Everywhere program and may not contain all information available regarding this patient. Last updated 18.[facility] Allergies * Ceftazidime(Urticaria) * Clindamycin(Other) * Codeine(Tylenol #3 (per mom), Heart racing and 'can't breath') * Tegaderm Alginate Ag(Skin Reactions) Medications * Be aware that medications may not be up to date on this document. Alwaysverify current medications with the patient. * enalapril (VASOTEC) 10 MG tablet(Started 04/28/2019) Take 2 tablets by mouth once daily 3 refills remaining * cyclobenzaprine (FLEXERIL) 10 MG tablet(Started 04/14/2019) * lidocaine (LIDODERM) 5 % patch(Started 12/29/2020) Apply 1 (one) patch to skin once daily * acetaminophen (TYLENOL) 500 MG tablet(Started 05/22/2022) Take 1 (one) tablet by mouth every 4 hours as needed for Fever or Pain Maximum allowable Acetaminophen amount = 4 Grams (4000 mg) / 24 hours. * ibuprofen (MOTRIN) 600 MG tablet(Started 05/22/2022) Take 1 (one) tablet by mouth every 6 hours as needed for Pain * sacubitril-valsartan (ENTRESTO) 24-26 MG tablet Take 1 (one) tablet by mouth 2 times daily * carvedilol (COREG) 3.125 MG tablet Take 1 (one) tablet by mouth 2 times daily with morning and evening meal * furosemide (Lasix) 20 MG tablet(Started 09/10/2023) Take 1 (one) tablet by mouth once daily for 5 days * escitalopram (Lexapro) 10 MG tablet(Started 12/31/2023) Take 1 (one) tablet by mouth once daily * rOPINIRole (Requip) 0.5 MG tablet(Started 12/31/2023) TAKE 1-2 TABLETS BY MOUTH DAILY AT BEDTIME * gabapentin (Neurontin) 300 MG capsule(Started 08/23/2023) Take 1 (one) capsule by mouth Active Problems Problem Noted Date Diagnosed Date 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, 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 Injury, other and unspecified, knee, leg, ankle, and foot 04/01/2011 Chronic tonsillitis and adenoiditis 03/18/2011 Resolved Problems Problem Noted Date Diagnosed Date Resolved Date 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 06/10/2013 Dilated cardiomyopathy secon maximus to malignancy 06/10/2013 06/10/2013 425.9 03/07/2011 06/10/2013 Social History Tobacco Use Types Packs/Day Years [...] Comments Blood Pressure 118/76 01/08/2024 1:29 PM GROUP PRODUCT MANAGER Pulse 112 01/08/2024 1:29 PM GROUP PRODUCT MANAGER Temperature 36.3 ??C (97.4 ??F) 01/08/2024 1:29 PM CS T Respiratory Rate 16 01/08/2024 1:29 PM GROUP PRODUCT MANAGER Oxygen Saturation 98% 01/08/2024 1:29 PM GROUP PRODUCT MANAGER Inhaled Oxygen Concentration - - Weight 76.1 kg (167 lb 12.3 oz) 01/08/2024 1:29 PM GROUP PRODUCT MANAGER Height 157 cm (5' 1.81 ) 01/08/2024 1:29 PM GROUP PRODUCT MANAGER Body Mass Index 30.87 01/08/2024 1:29 PM GROUP PRODUCT MANAGER Medical Devices Implanted Type Area Master Hearth Technician Device Identifier Shelf Expiration Date Model / Serial / Lot Melecio Bone Palacos R Implanted:Qty: 2 on 11/26/2015 by Wilmer Pollard MD at [facility] Right: Knee [employer] 06/29/2020 [id number] / / [id number] Distal Femur Axial Pin Implanted:Qty: 1 on 11/26/2015 by Wilmer Pollard MD at [facility] Right: Knee [employer] 03/30/2022 [id number] / / [id number] Mid Section, Size 40mm Implanted:Qty: 1 on 11/26/2015 by Wilmer Pollard MD at [facility] Right: Knee [employer] 11/30/2022 [id number] / / [id number] Canal Filling Stem Extension 11mm X 140mm Implanted:Qty: 1 on 11/26/2015 by Wilmer Pollard MD at [facility] Right: Knee [employer] 04/28/2022 [id number] / / [id number] Guardian Tibial Sleeve W/Plugs, Sz 1 Implanted:Qty: 1 on 11/26/2015 by Wilmer Pollard MD at [facility] Right: Knee [employer] 07/29/2022 [id number] / / [id number] Repiphysis To Guardian Taper Adapter + Two Pins Implanted:Qty: 1 on 11/26/2015 by Wilmer Pollard MD at [facility] Right: Knee [employer] 11/29/2015 [id number] / / [id number] Advanced Onlay All-Poly Patella 32mm Tri-Peg Thickness 8mm Implanted:Qty: 1 on 11/26/2015 by Wilmer Pollard MD at [facility] Right: Knee [employer] 08/29/2023 [id number] / / [id number] Guardian Distal Femoral Right Implanted:Qty: 1 on 11/26/2015 by Wilmer Pollard MD at [facility] Right: Knee [employer] 04/28/2022 [id number] / / [id number] Guardian Med-Section Size 60mm Implanted:Qty: 1 on 11/26/2015 by Wilmer Pollard MD at [facility] Right: Knee [employer] 11/28/2018 [id number] / / [id number] Tibial Hinge Base With Rotational Stop Pin Implanted:Qty: 1 on 11/26/2015 by Wilmer Pollard MD at [facility] Right: Knee [employer] 04/30/2023 [id number] / / [id number] Tibial Poly Spacer, Size 8mm Implanted:Qty: 1 on 11/26/2015 by Wilmer Pollard MD at [facility] Right: Knee [employer] 01/28/2022 [id number] / / [id number] Explanted Type Area Master Hearth Technician Device Identifier Shelf Expiration Date Model / Serial / Lot Guidewire 3.0 X 98cm Explanted:Qty: 1 on 11/26/2015 at [facility] Right: Knee [employer] 01/28/2025 [id number] / / [id number] Procedures * CBC W AUTO DIFFERENTIAL(Performed 01/08/2024) Performed for Osteosarcoma of femur, right (HCC) * CARDIAC EKG ORDER(Performed 09/10/2023) * CT ANGIO CHEST PULM EMBOLISM(Performed 09/09/2023) Performed for Chest pain, unspecified type * TROPONIN-I HIGH SENSITIVE REFLEX 1HOUR(Performed 09/09/2023) * SARS-COV-2 (COVID-19) RAPID(Performed 09/09/2023) * D-DIMER(Performed 09/09/2023) * B-TYPE NATRIURETIC PEPTIDE(Performed 09/09/2023) * TROPONIN-I HIGH SENSITIVE BASELINE + 1HR(Performed 09/09/2023) * COMPREHENSIVE METABOLIC PANEL(Performed 09/09/2023) * CBC W AUTO DIFFERENTIAL(Performed 09/09/2023) * XR CHEST 2VW(Performed 09/09/2023) Performed for Chest pain, unspecified type * EKG 12-LEAD(Performed 09/09/2023) Performed for Chest pain, unspecified type * BASIC METABOLIC PANEL (CALCIUM TOTAL)(Performed 06/13/2022) Performed for Osteosarcoma of femur, right (HCC) * CBC W AUTO DIFFERENTIAL(Performed 06/13/2022) Performed for Osteosarcoma of femur, right (HCC) * XR FEMUR RIGHT 2VW(Performed 06/04/2022) Performed for Acute pain of right knee, Osteosarcoma of femur, right (HCC) * XR TIBIA FIBULA RIGHT 2VW(Performed 06/04/2022) Performed for Acute pain of right knee, Osteosarcoma of femur, right (HCC) * XR KNEE RIGHT 2VW OR LESS(Performed 05/22/2022) Performed for Right knee pain, unspecified chronicity * COMPREHENSIVE METABOLIC PANEL(Performed 05/22/2022) * SKIN TEST PPD - POINT OF CARE(Performed 07/01/2021) Performed for PPD screening test * XR TIBIA FIBULA RIGHT 2VW(Performed 04/14/2021) Performed for Acute pain of right knee * XR FEMUR RIGHT 2VW(Performed 04/14/2021) Performed for Acute pain of right knee * XR KNEE RIGHT 3VW(Performed 04/14/2021) Performed for Acute pain of right knee * XR TIBIA FIBULA RIGHT 2VW(Performed 01/30/2021) Performed for Acute pain of right knee * XR FEMUR RIGHT 2VW(Performed 01/30/2021) Performed for Acute pain of right knee * CARDIAC EKG ORDER(Performed 12/30/2020) * XR TIBIA FIBULA RIGHT 2VW(Performed 12/29/2020) Performed for Chronic pain of right knee * XR FEMUR RIGHT 2VW(Performed 12/29/2020) Performed for Chronic pain of right knee * C-REACTIVE PROTEIN(Performed 12/29/2020) * COMPREHENSIVE METABOLIC PANEL(Performed 12/29/2020) * ERYTHROCYTE SEDIMENTATION RATE(Performed 12/29/2020) * CBC W AUTO DIFFERENTIAL(Performed 12/29/2020) * EKG 12-LEAD(Performed 12/29/2020) Performed for Chronic pain of right knee * C-REACTIVE PROTEIN(Performed 12/28/2020) * ERYTHROCYTE SEDIMENTATION RATE(Performed 12/28/2020) * BASIC METABOLIC PANEL (CALCIUM TOTAL)(Performed 12/28/2020) * CBC W AUTO DIFFERENTIAL(Performed 12/28/2020) * XR TIBIA FIBULA RIGHT 2VW(Performed 12/28/2020) Performed for Acute pain of right knee * XR FEMUR RIGHT 2VW(Performed 12/28/2020) Performed for Acute pain of right knee * XR KNEE RIGHT 3VW(Performed 12/28/2020) Performed for Acute pain of right knee * CARDIAC EKG ORDER(Performed 10/04/2020) * SARS-COV-2 (COVID-19) IN HOUSE(Performed 10/03/2020) * CT ANGIO CHEST PULM EMBOLISM(Performed 10/03/2020) Performed for Shortness of breath * HCG URINE QUALITATIVE(Performed 10/03/2020) * COMPREHENSIVE METABOLIC PANEL(Performed 10/03/2020) * D-DIMER(Performed 10/03/2020) * CBC W AUTO DIFFERENTIAL(Performed 10/03/2020) * HIV-1 HIV-2 ANTIGEN/ANTIBODY(Performed 10/03/2020) * XR CHEST 2VW(Performed 10/03/2020) Performed for Shortness of breath * EKG 12-LEAD(Performed 10/03/2020) Performed for Shortness of breath * XR KNEE RIGHT 3VW(Performed 06/23/2019) Performed for Acute pain of right knee * US EXTREMITY RIGHT LTD NONVASC(Performed 06/06/2019) Performed for Adenopathy * C-REACTIVE PROTEIN(Performed 04/29/2019) Performed for Positive D dimer, Osteosarcoma of femur, right (HCC) * ERYTHROCYTE SEDIMENTATION RATE(Performed 04/29/2019) Performed for Positive D dimer, Osteosarcoma of femur, right (HCC) * D-DIMER(Performed 04/29/2019) Performed for Positive D dimer, Osteosarcoma of femur, right (HCC) * US LOWER EXT RIGHT VENOUS DOPPL(Performed 04/29/2019) Performed for Positive D dimer, Osteosarcoma of femur, right (HCC) * XR TIBIA FIBULA RIGHT 2VW(Performed 07/15/2018) Performed for Status post revision of total replacement of right knee * XR FEMUR RIGHT 2VW(Performed 07/15/2018) Performed for Status post revision of total replacement of right knee * CARDIAC HOLTER MONITOR ORDER(Performed 06/18/2018) * CULTURE MRSA(Performed 04/16/2018) Performed for Hx MRSA infection * ECHO CONSULT - PEDIATRIC(Performed 04/16/2018) Performed for Secondary dilated cardiomyopathy (HCC) * XR FEMUR RIGHT 2VW(Performed 04/16/2018) Performed for S/P revision of total knee, right * XR TIBIA FIBULA RIGHT 2VW(Performed 04/16/2018) Performed for S/P revision of total knee, right * COMPREHENSIVE METABOLIC PANEL(Performed 11/13/2017) Performed for Osteosarcoma (HCC) * CBC W AUTO DIFFERENTIAL(Performed 11/13/2017) Performed for Osteosarcoma (HCC) * XR TIBIA FIBULA RIGHT 2VW(Performed 11/21/2016) Performed for Pain of right lower extremity * XR FEMUR RIGHT 2VW(Performed 11/21/2016) Performed for Pain of right lower extremity * CULTURE MRSA(Performed 07/11/2016) Performed for MRSA (methicillin resistant staph aureus) culture positive * ECHO CONSULT - PEDIATRIC(Performed 07/11/2016) Performed for Secondary dilated cardiomyopathy (HCC) * CARDIAC RHYTHM STRIP ORDER(Performed 12/04/2015) * IMAGING/RADIOLOGY/XRAY RESULTS ORDER(Performed 12/04/2015) * GLUCOSE - POINT OF CARE(Performed 11/30/2015) * BASIC METABOLIC PANEL (CALCIUM TOTAL)(Performed 11/30/2015) * HGB HCT PANEL(Performed 11/30/2015) * HGB HCT PANEL(Performed 11/29/2015) * TRANSFUSE RED BLOOD CELL LEUKOREDUCED UNIT(S)(Performed 11/28/2015) * TRANSFUSE RED BLOOD CELL LEUKOREDUCED UNIT(S)(Performed 11/28/2015) * HGB HCT PANEL(Performed 11/28/2015) * BASIC METABOLIC PANEL (CALCIUM TOTAL)(Performed 11/28/2015) * HGB HCT PANEL(Performed 11/27/2015) * OT EVAL AND TREAT(Performed 11/26/2015) * CBC W AUTO DIFFERENTIAL(Performed 11/26/2015) * GROSS EXAM PATHOLOGY (STL)(Performed 11/26/2015) Performed for Diagnosis unknown * OXYGEN(Performed 11/26/2015) * XR KNEE RIGHT 2VW OR LESS(Performed 11/26/2015) Performed for Pain * CULTURE FUNGUS OTHER+FUNGUS SMEAR(Performed 11/26/2015) Performed for Diagnosis unknown * CULTURE TISSUE+GRAM STAIN(Performed 11/26/2015) Performed for Diagnosis unknown * CULTURE ANAEROBE(Performed 11/26/2015) Performed for Diagnosis unknown * CULTURE FUNGUS OTHER+FUNGUS SMEAR(Performed 11/26/2015) Performed for Diagnosis unknown * CULTURE WOUND+GRAM STAIN(Performed 11/26/2015) Performed for Diagnosis unknown * CULTURE ANAEROBE(Performed 11/26/2015) Performed for Diagnosis unknown * CROSSMATCH RBC LEUKOREDUCED(Performed 11/26/2015) * CROSSMATCH RBC LEUKOREDUCED(Performed 11/26/2015) * URINALYSIS REFLEX MICROSCOPIC REFLEX CULTURE(Performed 11/26/2015) Performed for Diagnosis unknown * PERIPHERAL BLOCK(Performed 11/26/2015) * OSTEOPLASTY FEMUR LENGTHENING(Performed 11/26/2015) Performed for Diagnosis unknown * ARTHROPLASTY TOTAL KNEE REVISION(Performed 11/26/2015) Performed for Diagnosis unknown * HCG URINE QUALITATIVE - POINT OF CARE(Performed 11/26/2015) * APHERESIS/TRANSFUSION ORDER(Performed 11/16/2015) * BLOOD TYPE VERIFICATION(Performed 11/15/2015) * TYPE + SCREEN PANEL(Performed 11/15/2015) Performed for Mechanical loosening of internal right knee prosthetic joint, initial encounter ([facility]), Preop examination * XR CHEST 2VW(Performed 11/08/2015) Performed for Pre-op testing * COMPREHENSIVE METABOLIC PANEL(Performed 11/08/2015) Performed for Preop examination, Mechanical loosening of internal right knee prosthetic joint, initial encounter ([facility]) * CBC W AUTO DIFFERENTIAL(Performed 11/08/2015) Performed for Preop examination, Mechanical loosening of internal right knee prosthetic joint, initial encounter ([facility]) * CULTURE MSSA/MRSA(Performed 11/08/2015) Performed for Preop examination, Mechanical loosening of internal right knee prosthetic joint, initial encounter ([facility]) * NM BONE SCAN 3 PHASE(Performed 07/27/2015) Performed for Osteosarcoma of femur, right (HCC) * DIFFERENTIAL MANUAL(Performed 07/27/2015) Performed for Osteosarcoma (HCC) * COMPREHENSIVE METABOLIC PANEL(Performed 07/27/2015) Performed for Osteosarcoma (HCC) * CBC W AUTO DIFFERENTIAL(Performed 07/27/2015) Performed for Osteosarcoma (HCC) * XR BONE LENGTH SCANOGRAM(Performed 07/27/2015) Performed for Osteosarcoma of femur, right (HCC) * ECHO CONSULT - PEDIATRIC(Performed 07/13/2015) Performed for Myopathy, Osteosarcoma (HCC) * CBC W AUTO DIFFERENTIAL(Performed 06/09/2014) Performed for Osteosarcoma (HCC) * ECHO CONSULT - PEDIATRIC(Performed 06/09/2014) Performed for Secondary dilated cardiomyopathy (HCC) * CARDIAC EKG ORDER(Performed 05/30/2014) * INFLUENZA A+B ANTIGEN RAPID(Performed 01/30/2014) * EKG 15-LEAD(Performed 01/30/2014) Performed for Cardiomyopathy (HCC) * ECHO CONSULT - PEDIATRIC(Performed 06/10/2013) Performed for Cardiomyopathy in other diseases classified elsewhere (HCC) * XR BONE LENGTH SCANOGRAM(Performed 05/27/2013) Performed for Unequal leg length (acquired) * CBC W AUTO DIFFERENTIAL(Performed 04/22/2013) Performed for Osteosarcoma (HCC) * XR ANKLE RIGHT 3VW OR MORE(Performed 04/22/2013) Performed for Pain in ankle joint * ECHO CONSULT - PEDIATRIC(Performed 12/10/2012) Performed for Cardiomyopathy in other diseases classified elsewhere (HCC) * IP CONSULT TO PEDIATRIC ORTHOPEDICS(Performed 07/26/2012) * CARDIAC EKG ORDER(Performed 07/19/2012) * CBC W AUTO DIFFERENTIAL(Performed 07/12/2012) Performed for Right knee pain, Fever * COMPREHENSIVE METABOLIC PANEL(Performed 07/12/2012) * CULTURE BLOOD(Performed 07/12/2012) Performed for Right knee pain, Fever * ERYTHROCYTE SEDIMENTATION RATE(Performed 07/12/2012) * C-REACTIVE PROTEIN(Performed 07/12/2012) Performed for Right knee pain, Fever * XR KNEE RIGHT 2VW OR LESS(Performed 07/12/2012) Performed for Right knee pain, Fever * XR CHEST 2VW(Performed 07/12/2012) Performed for Fever * EKG 15-LEAD(Performed 07/12/2012) Performed for Fever * ECHO CONSULT - PEDIATRIC(Performed 02/27/2012) Performed for Cardiomyopathy in other diseases classified elsewhere ([facility]) * ECHO CONSULT - PEDIATRIC(Performed 09/09/2011) Performed for Cardiomyopathy in other diseases classified elsewhere ([facility]) * DEXA BONE DENSITY AXIAL SKELETON(Performed 09/09/2011) 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[facility]) * CBC W AUTO DIFFERENTIAL(Performed 05/23/2011) * COMPREHENSIVE METABOLIC PANEL(Performed 05/23/2011) Performed for Osteosarcoma (HCC) * XR LOWER EXTREMITY STANDING(Performed 05/23/2011) Performed for Acquired leg length discrepancy, History of Tapia's sarcoma * XR TIBIA FIBULA RIGHT 2VW(Performed 04/01/2011) Performed for Injury, other and unspecified, knee, leg, ankle, and foot * XR KNEE RIGHT 2VW OR LESS(Performed 04/01/2011) Performed for Injury, other and unspecified, knee, leg, ankle, and foot * PATHOLOGY/CYTOLOGY REPORT ORDER(Performed 03/21/2011) * GROSS EXAM PATHOLOGY(Performed 03/18/2011) * HCG URINE QUALITATIVE - POINT OF CARE(Performed 03/18/2011) * ECHO CONSULT - PEDIATRIC(Performed 03/07/2011) Performed for Cardiomyopathy in other diseases classified elsewhere ([facility]) * GROSS + MICRO EXAM(Performed 07/22/2010) * HCG URINE QUALITATIVE(Performed 07/22/2010) * XR CHEST 2VW(Performed 07/21/2010) Performed for Cardiomyopathy, Osteosarcoma ([facility]) * US ABDOMEN LIMITED(Performed 07/20/2010) Performed for Abdominal Pain, Acute * XR ABD OBSTRUCTION SERIES 2VW(Performed 07/19/2010) Performed for Abdominal Pain, Acute * LIPASE BLOOD(Performed 07/19/2010) * AMYLASE BLOOD(Performed 07/19/2010) * COMPREHENSIVE METABOLIC PANEL(Performed 07/19/2010) * CBC W AUTO DIFFERENTIAL(Performed 07/19/2010) * HCG URINE QUALITATIVE(Performed 07/19/2010) * URINALYSIS REFLEX TO MICROSCOPIC NO CULTURE(Performed 07/19/2010) * ECHO CONSULT - PEDIATRIC(Performed 02/08/2010) * XR BONE LENGTH SCANOGRAM(Performed 01/07/2010) Performed for Unequal Leg Length * XR CHEST 2VW(Performed 12/28/2009) Performed for 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 WBC 9.6 4.0 - 10.7 x10E9/L 01/08/2024 2:50 PM [facility] RBC Count 4.38 3.90 - 5.20 x10E12/L 01/08/2024 2:50 PM [facility] Hemoglobin 14.0 11.9 - 15.8 g/dL 01/08/2024 2:50 PM [facility] Hematocrit 40.8 34.8 - 46.1 % 01/08/2024 2:50 PM [facility] MCV 93.2 80.0 - 98.0 fL 01/08/2024 2:50 PM [facility] MCH 32.0 26.7 - 33.6 pg 01/08/2024 2:50 PM [facility] MCHC 34.3 31.7 - 36.3 g/dL 01/08/2024 2:50 PM [facility] RDW-CV 12.6 11.3 - 14.8 % 01/08/2024 2:50 PM [facility] Platelet Count 273 150 - 420 x10E9/L 01/08/2024 2:50 PM [facility] MPV 11.5(H) 7.8 - 11.4 fL 01/08/2024 2:50 PM [facility] Preliminary Absolute Neutrophil 5.78 1.60 - 7.50 x10E9/L 01/08/2024 2:50 PM [facility] Neutrophil % 60.0 41.0 - 74.0 % 01/08/2024 2:50 PM [facility] Lymphocyte % 28.3 17.0 - 47.0 % 01/08/2024 2:50 PM [facility] Monocyte % 8.6 3.0 - 11.0 % 01/08/2024 2:50 PM [facility] Eosinophil % 2.0 0.0 - 7.0 % 01/08/2024 2:50 PM [facility] Basophil % 0.8 0.0 - 1.6 % 01/08/2024 2:50 PM [facility] Immature Granulocytes % 0.3 0.0 - 1.0 % 01/08/2024 2:50 PM [facility] Neutrophil Absolute 5.78 1.60 - 7.50 x10E9/L 01/08/2024 2:50 PM [facility] Lymphocyte Absolute 2.73 1.00 - 4.40 x10E9/L 01/08/2024 2:50 PM [facility] Monocyte Absolute 0.83 0.15 - 1.00 x10E9/L 01/08/2024 2:50 PM [facility] Eosinophil Absolute 0.19 0.00 - 0.60 x10E9/L 01/08/2024 2:50 PM [facility] Basophil Absolute 0.08 0.00 - 0.13 x10E9/L 01/08/2024 2:50 PM [facility] Blood BLOOD SPECIMEN / Unknown Venipuncture / Unknown 01/08/2024 2:34 PM GROUP PRODUCT MANAGER 01/08/2024 2:41 PM GROUP PRODUCT MANAGER Pepito Solano MD LAB - HEMATOLOGY ORD ERABLES [facility] [address] [place] [address], [facility] [phone] * CARDIAC EKG ORDER (09/10/2023 7:04 PM CDT) Only the most recent of5 resultswithin the time period is included. Narrative 09/10/2023 7:04 PM CDT Ordered by an unspecified provider. Scanned Document CARDIAC SERVICES ORD ERABLES * CT ANGIO CHEST PULM EMBOLISM (09/09/2023 10:44 PM CDT) Only the most recent of2 resultswithin the time period is included. Anatomical Region Laterality Modality Chest Computed Tomogra phy 09/10/2023 9:30 AM CDT Impressions 09/10/2023 9:35 AM CDT IMPRESSION: 1. ??No pulmonary embolism or pneumonia. 2. ??Mild interstitial edema without pleural effusion. 3. ??Mediastinal adenopathy, most likely reactive > Interpreting Provider: Rod Connor MD on 09/10/2023 9:35 AM Narrative 09/10/2023 9:35 AM CDT PROCEDURE: ??CT ANGIO CHEST PULM EMBOLISM DATE/TIME OF EXAM: ??09/09/2023 10:45 PM CLINICAL INFORMATION: None relevant/not provided if blank. Indication: R07.9: Chest pain, unspecified Additional History: COMPARISON: None. TECHNIQUE: CT angiography of the chest was performed with IV contrast. MIP (maximum intensity projection) images or 3D post processing was performed. CT dose reduction technique was used including Automated Exposure Control CONTRAST: ?? IOPAMIDOL 76 % IV SOLN:100 mL FINDINGS: Overall exam quality is good for evaluating the pulmonary arteries. ??There are no intraluminal filling defects indicate pulmonary embolism. ??There is no pneumonia, mass or pleural effusion. ??However septal thickening occurs in the dependent portions of the lungs indicating interstitial edema. Overall heart size is normal but there is mild enlargement of the left atrium. ??No pericardial effusion. ??No calcified plaque in the coronary arteries. ??There is mild central and hilar adenopathy. ??For example a subcarinal node measures 2.4 x 1.1 cm. ??Right hilar nodes measure up to 1.5 x 0.7 cm. ??Left hilar nodes measure up to 1.3 x 1.1 cm. ??There are several enlarged prevascular nodes up to 1.2 cm. ??No axillary adenopathy. ??The thoracic aorta is normal in size and enhancement. The visualized thyroid is normal. Visualized portions of the liver and spleen are unremarkable. ??The gallbladder surgically absent. No significant bony findings. Procedure Note Rod Connor MD - 09/10/2023 PROCEDURE: CT ANGIO CHEST PULM EMBOLISM DATE/TIME OF EXAM: 09/09/2023 10:45 PM CLINICAL INFORMATION: None relevant/not provided if blank. Indication: R07.9: Chest pain, unspecified Additional History: COMPARISON: None. TECHNIQUE: CT angiography of the chest was performed with IV contrast. MIP (maximum intensity projection) images or 3D post processing was performed. CTdose reduction technique was used including Automated Exposure Control CONTRAST: IOPAMIDOL 76 % IV SOLN:100 mL FINDINGS: Overall exam quality is good for evaluating the pulmonary arteries.There are no intraluminal filling defects indicate pulmonary embolism. Thereis no pneumonia, mass or pleural effusion. However septal thickeningoccurs in the dependent portions of the lungs indicating interstitial edema. Overall heart size is normal but there is mild enlargement of the left atrium. No pericardial effusion. No calcified plaque in the coronary arteries. There is mild central and hilar adenopathy. For example a subcarinal node measures 2.4 x 1.1 cm. Right hilar nodes measure up to1.5 x 0.7 cm. Left hilar nodes measure up to 1.3 x 1.1 cm. There areseveral enlarged prevascular nodes up to 1.2 cm. No axillary adenopathy. The thoracic aorta is normal in size and enhancement. The visualized thyroid is normal. Visualized portions of the liver and spleen are unremarkable. The gallbladder surgically absent. No significant bony findings. IMPRESSION: 1. No pulmonary embolism or pneumonia. 2. Mild interstitial edema without pleural effusion. 3. Mediastinal adenopathy, most likely reactive > Interpreting Provider: Rod Connor MD on 09/10/2023 9:35 AM Laura Raphael DO CT ORDERABLES * TROPONIN-I HIGH SENSITIVE REFLEX 1HOUR (09/09/2023 9:25 PM CDT) Troponin I High Sensitive 12 <=14 ng/L 09/09/2023 9:54 PM CDT [facility] Delta Troponin I HS 09/09/2023 9:54 PM CDT [facility] Comment:Delta value intentio kendra not calculated. Baseline to 1 hour specimen collection interval exceeded. Blood BLOOD SPECIMEN / Unknown Venipuncture / Unknown 09/09/2023 9:25 PM CDT 09/09/2023 9:25 PM CDT Terrence Chapman DO LAB - CHEMISTRY ORDERABLES [facility] [address] [place] [address] * SARS-COV-2 (COVID-19) RAPID (09/09/2023 7:46 PM CDT) Pathologist [facility] [place] COVID-19 PCR Not detected Not detected 09/09/20 8:29 PM CDT [facility] Microbiology SPECIMEN FROM NASOPHARYNGEAL STRUCTURE / Unknown Collection / Unknown 09/09/2023 7:46 PM CDT 09/09/2023 7:56 PM CDT [facility] - 09/09/2023 8:29 PM CDT The CepTourRadar Xpert Xpress SARS-COV-2 has been authorized by the Food and Drug Administration (FDA) under an Emergency Use Authorization (EUA). This test has been validated in accordance with the FDA's guidance document Policy for Diagnostic Testing in Laboratories Certified to perform High Complexity Testing under CLIA prior to Emergency Use Authorization for Coronavirus Disease-2019 during the Public Health Emergency issued on January 28, 2020. FDA independent review of this validation is pending. This test is only authorized for the duration of the time the declaration that circumstances exist justifying the authorization of emergency use of in vitro diagnostic tests for detection of SARS-COV-2 virus and/or diagnosis of COVID-19 infection under 564(b) (1) of the Act. 21 U.S.C. 360bbb-3 (b) (1), unless the authorization is terminated or revoked sooner. Fact Sheets for this EUA assay are available upon request. Terrence Chapman DO LAB - MICROBIOL OGY ORDERABLES Performing Organization Address City/State/[facility] Co de Phone Number [facility] [address] [place] [address] * TROPONIN-I HIGH SENSITIVE BASELINE + 1HR (09/09/2023 7:45 PM CDT) Pathologist [facility] [place] Troponin I High Sensitive 13 <=14 ng/L 09/09/2023 8:20 PM CDT [facility] Blood BLOOD SPECIMEN / Unknown Venipuncture / Unknown 09/09/2023 7:45 PM CDT 09/09/2023 7:56 PM CDT Terrence [place] Birch DO LAB - CHEMISTRY ORDERABLES Performing Organization Address [facility]/ZIP Co de Phone Number [facility] [address], [place] [phone] * (ABNORMAL) D-DIMER (09/09/2023 7:45 PM CDT) Only the most recent of3 resultswithin the time period is included. D-Dimer 0.79(H) 0.27 - 0.50 ug/mL FEU 09/09/2023 8:09 PM CDT [facility] Blood BLOOD SPECIMEN / Unknown Venipuncture / Unknown 09/09/2023 7:45 PM CDT 09/09/2023 7:56 PM CDT Narrative [facility] - 09/09/2023 8:09 PM CDT In the absence of clinical symptoms, a value less than or equal to 0.5 mcg/mL FEU significantly decreases the probability of PE/DVT (negative predictive value >95%). 1 mcg/ml FEU = 1 Fibrinogen Equivalent Unit (approximates 0.5 mcg/mL of D- dimer). Terrence Chapman DO LAB - COAGULATI ON ORDERABLES Performing Organization Address [facility] Co de Phone Number [facility] [address] [place] [phone] * (ABNORMAL) B-TYPE NATRIURETIC PEPTIDE (09/09/2023 7:45 PM CDT) BNP 407(H) <=100 pg/mL 09/09/2023 8:20 PM CDT [facility] Blood BLOOD SPECIMEN / Unknown Venipuncture / Unknown 09/09/2023 7:45 PM CDT 09/09/2023 7:56 PM CDT Narrative [facility] - 09/09/2023 8:20 PM CDT A cutoff of 100 pg/mL has been demonstrated to provide the maximal combination of sensitivity, specificity, and negative predictive value for contributing to the diagnosis of congestive heart failure (CHF) only. ??A B-Type Natriuretic Peptide (BNP) value greater than or equal to 100 pg/mL is consistent with a diagnosis of CHF in the appropriate clinical setting. ??False positive results are more common in females greater than 75 years of age. ??Blood concentrations of natriuretic peptides may also be elevated in patients with myocardial infarction and in patients who are candidates for or are undergoing renal dialysis. Terrence Rogeliodarnell Chapman DO LAB - CHEMISTRY ORDERABLES [facility] [address] [place] [address] * COMPREHENSIVE METABOLIC PANEL (09/09/2023 7:45 PM CDT) Only the most recent of10 resultswithin the time period is included. [facility] Glucose 88 70 - 105 mg/dL 09/09/2023 8:14 PM CDT [facility] Sodium 140 136 - 145 mmol/L 09/09/2023 8:14 PM CDT [facility] Potassium 3.5 3.5 - 5.1 mmol/L 09/09/2023 8:14 PM CDT [facility] Chloride 104 98 - 107 mmol/L 09/09/2023 8:14 PM CDT [facility] CO2 22 22 - 29 mmol/L 09/09/2023 8:14 PM CDT [facility] Calcium 9.3 8.4 - 10.4 mg/dL 09/09/2023 8:14 PM CDT [facility] Anion Gap 14 6 - 16 mmol/L 09/09/2023 8:14 PM CDT [facility] BUN 9 5.3 - 18.7 mg/dL 09/09/2023 8:14 PM CDT [facility] Creatinine 0.70 0.57 - 1.11 mg/dL 09/09/2023 8:14 PM CDT [facility] Alkaline Phosphatase 51 40 - 150 U/L 09/09/2023 8:14 PM CDT [facility] ALT 28 0 - 55 U/L 09/09/2023 8:14 PM CDT [facility] AST 25 5 - 34 U/L 09/09/2023 8:14 PM CDT [facility] Protein Total 7.8 6.4 - 8.3 gm/dL 09/09/2023 8:14 PM CDT [facility] Albumin 3.9 3.4 - 5.0 gm/dL 09/09/2023 8:14 PM CDT [facility] Bilirubin Total 0.7 0.2 - 1.2 mg/dL 09/09/2023 8:14 PM CDT [facility] eGFR by CKD-EPI >90 >=90 mL/min/1.7 3 m2 09/09/2023 8:14 PM CDT [facility] Blood BLOOD SPECIMEN / Unknown Venipuncture / Unknown 09/09/2023 7:45 PM CDT 09/09/2023 7:56 PM CDT Terrence Rogelio Chapman LAB - CHEMISTRY ORDERABLES [facility] [address] [place] [address] * XR CHEST 2VW (09/09/2023 5:52 PM CDT) Only the most recent of6 resultswithin the time period is included. Anatomical Region Laterality Modality Chest Radiographic Radha ging 09/09/2023 6:23 PM CDT Impressions 09/09/2023 6:23 PM CDT IMPRESSION: No acute process. No change. > Interpreting Provider: Nhan Crow MD on 09/09/2023 6:23 PM Narrative 09/09/2023 6:23 PM CDT PROCEDURE: ??XR CHEST 2VW DATE/TIME OF EXAM: ??09/09/2023 5:52 PM CLINICAL INFORMATION: None relevant/not provided if blank. Indication: R07.9: Chest pain, unspecified CHEST PA AND LATERAL. HISTORY: R07.9: Chest pain, unspecified COMPARISON: 11/08/2015. FINDINGS: The lung volumes are normal and symmetric. The heart size is normal. The mediastinal silhouette is normal. The pulmonary vasculature is within normal limits. The lungs are clear. There is no evidence of pneumothorax or pleural effusion. No fracture or chest wall abnormality is identified. Procedure Note Nhan Crow MD - 09/09/2023 PROCEDURE: XR CHEST 2VW DATE/TIME OF EXAM: 09/09/2023 5:52 PM CLINICAL INFORMATION: None relevant/not provided if blank. Indication: R07.9: Chest pain, unspecified CHEST PA AND LATERAL. HISTORY: R07.9: Chest pain, unspecified COMPARISON: 11/08/2015. FINDINGS: The lung volumes are normal and symmetric. The heart size is normal. The mediastinal silhouette is normal. The pulmonary vasculature is within normal limits. The lungs are clear. There is no evidence of pneumothoraxor pleural effusion. No fracture or chest wall abnormality is identified. IMPRESSION: No acute process. No change. > Interpreting Provider: Nhan Crow MD on 09/09/2023 6:23 PM Terrence Chapman DO DIAGNOSTIC IMAG ING ORDERABLES * EKG 12-LEAD (09/09/2023 5:12 PM CDT) Only the most recent of3 resultswithin the time period is included. Ventricular Rate 122 BPM [facility] Atrial Rate 122 BPM [facility] P-R Interval 132 ms [facility] QRS Duration ms 70 ms [facility] Q-T Interval ms 318 ms [facility] QTC Calculation (Bezet) 453 ms [facility] Calculated P [place] 28 degrees [facility] Calculated R [place] -21 degrees [facility] Calculated T [place] 44 degrees [facility] Interpretation EKG SINUS TACHYCARDIA LOW VOLTAGE QRS NONSPECIFIC T WAVE ABNORMALITY ABNORMAL ECG WHEN COMPARED WITH ECG OF 29-DEC-2020 21:30, NO SIGNIFICANT CHANGE WAS FOUND Confirmed by Geoff Rizzo MD ([id number]) on 09/10/2023 6:52:03 AM [facility] 09/09/2023 5:12 PM CDT 09/10/2023 6:52 AM CDT Brynn Cardoza DO ECG ORDERABLES [facility] * (ABNORMAL) BASIC METABOLIC PANEL (CALCIUM TOTAL) (06/13/2022 3:16 PM CDT) Only the most recent of4 resultswithin the time period is included. BUN 10 7 - 26 mg/dL 06/13/2022 3:51 PM CDT [facility] Creatinine 0.55(L) 0.56 - 0.96 mg/dL 06/13/2022 3:51 PM [facility] Sodium 142 136 - 145 mmol/L 06/13/2022 3:51 PM [facility] Potassium 3.8 3.5 - 4.5 mmol/L 06/13/2022 3:51 PM [facility] Chloride 104 98 - 107 mmol/L 06/13/2022 3:51 PM [facility] CO2 20(L) 22 - 29 mmol/L 06/13/2022 3:51 PM [facility] Glucose 94 70 - 115 mg/dL 06/13/2022 3:51 PM [facility] Calcium 9.7 8.4 - 10.2 mg/dL 06/13/2022 3:51 PM [facility] Anion Gap 22(H) 8 - 18 06/13/2022 3:51 PM [facility] BUN/Creatinine Ratio 18 7 - 23 06/13/2022 3:51 PM [facility] Osmolality Calculated 293 270 - 300 mOsm/kg 06/13/2022 3:51 PM [facility] eGFR by CKD-EPI >90 >=90 mL/min/1.7 3 m2 06/13/2022 3:51 PM [facility] Blood BLOOD SPECIMEN / Unknown Venipuncture / Unknown 06/13/2022 3:16 PM CDT 06/13/2022 3:23 PM CDT Pepito Solano MD LAB - CHEMISTRY ZOË MACHADO [facility] Organization Address [facility]/State/ZIP Co de Phone Number [facility] [address] [place] [address], [facility] [phone] * XR TIBIA FIBULA RIGHT 2VW (06/04/2022 1:47 PM CDT) Only the most recent of9 resultswithin the time period is included. Anatomical Region Laterality Modality Lower Extremity Radiographic Radha ging 06/04/2022 2:03 PM CDT Impressions 06/04/2022 2:10 PM CDT IMPRESSION: 1.Distal femoral resection, reconstruction, and total knee arthroplasty redemonstrated. 2.Fracture at the superior pole of the patella. This report was electronically signed by TREVIN MEEKS MD ??on 06/04/2022 2:10 PM . 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 Right knee radiographs dated 05/22/2022. Findings: Right femur: Postsurgical changes are again demonstrated consistent with resection of the distal femur and reconstruction with an endoprosthesis and total knee arthroplasty. The prosthesis is intact. High attenuation material adjacent to the proximal aspect of the prosthesis compatible with cement, unchanged. A moderately displaced fracture of the superior pole of the patella is new since 04/14/2021 and likely increased in displacement since 05/22/2022 allowing for differences in projection. Right tibia fibula: There is total knee arthroplasty as noted above with a longstem tibial component extending into the distal tibial shaft. [place] are seen at the tibial tuberosity. The prosthesis is intact and the osseous alignment is unchanged. No acute tibial or fibular fracture. Osteopenia and mild soft tissue swelling. 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 Right knee radiographs dated 05/22/2022. Findings: Right femur: Postsurgical changes are again demonstrated consistent with resection of the distal femur and reconstruction with an endoprosthesis and totalknee arthroplasty. The prosthesis is intact. High attenuation materialadjacent to the proximal aspect of the prosthesis compatible with cement, unchanged. A moderately displaced fracture of the superior pole of the patella is new since 04/14/2021 and likely increased in displacementsince 05/22/2022 allowing for differences in projection. Right tibia fibula: There is total knee arthroplasty as noted above with a longstem tibial component extending into the distal tibial shaft. [place] are seen atthe tibial tuberosity. The prosthesis is intact and the osseous alignment is unchanged. No acute tibial or fibular fracture. Osteopenia and mild soft tissue swelling. IMPRESSION: 1.Distal femoral resection, reconstruction, and total knee arthroplasty redemonstrated. 2.Fracture at the superior pole of the patella. This report was electronically signed by TREVIN MEEKS MD on06/04/2022 2:10 PM . Zulema Recinos MD DIAGNOSTIC IMAGING ORDERABLES * XR FEMUR RIGHT 2VW (06/04/2022 1:47 PM CDT) Only the most recent of8 resultswithin the time period is included. Anatomical Region Laterality Modality Lower Extremity Radiographic Radha ging 06/04/2022 2:03 PM CDT Impressions 06/04/2022 2:10 PM CDT IMPRESSION: 1.Distal femoral resection, reconstruction, and total knee arthroplasty redemonstrated. 2.Fracture at the superior pole of the patella. This report was electronically signed by TREVIN MEEKS MD ??on 06/04/2022 2:10 PM . 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 Right knee radiographs dated 05/22/2022. Findings: Right femur: Postsurgical changes are again demonstrated consistent with resection of the distal femur and reconstruction with an endoprosthesis and total knee arthroplasty. The prosthesis is intact. High attenuation material adjacent to the proximal aspect of the prosthesis compatible with cement, unchanged. A moderately displaced fracture of the superior pole of the patella is new since 04/14/2021 and likely increased in displacement since 05/22/2022 allowing for differences in projection. Right tibia fibula: There is total knee arthroplasty as noted above with a longstem tibial component extending into the distal tibial shaft. [place] are seen at the tibial tuberosity. The prosthesis is intact and the osseous alignment is unchanged. No acute tibial or fibular fracture. Osteopenia and mild soft tissue swelling. 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 Right knee radiographs dated 05/22/2022. Findings: Right femur: Postsurgical changes are again demonstrated consistent with resection of the distal femur and reconstruction with an endoprosthesis and totalknee arthroplasty. The prosthesis is intact. High attenuation materialadjacent to the proximal aspect of the prosthesis compatible with cement, unchanged. A moderately displaced fracture of the superior pole of the patella is new since 04/14/2021 and likely increased in displacementsince 05/22/2022 allowing for differences in projection. Right tibia fibula: There is total knee arthroplasty as noted above with a longstem tibial component extending into the distal tibial shaft. [place] are seen atthe tibial tuberosity. The prosthesis is intact and the osseous alignment is unchanged. No acute tibial or fibular fracture. Osteopenia and mild soft tissue swelling. IMPRESSION: 1.Distal femoral resection, reconstruction, and total knee arthroplasty redemonstrated. 2.Fracture at the superior pole of the patella. This report was electronically signed by TREVIN MEEKS MD on06/04/2022 2:10 PM . Zulema Recinos MD DIAGNOSTIC IMAGING ORDERABLES * XR KNEE RIGHT 2VW OR LESS (05/22/2022 6:08 PM CDT) Only the most recent of4 resultswithin the time period is included. Anatomical Region Laterality Modality Lower Extremity Radiographic Radha ging 05/22/2022 6:17 PM CDT Impressions 05/22/2022 8:47 PM CDT IMPRESSION: Postoperative appearance of and just knee prosthesis without evidence of complication. Dictated by Mj Mayberry MD (senior vice president & general counsel). I, Dr. ELIZA GALINDO have personally reviewed and interpreted this examination/study. This report was electronically signed by ELIZA GALINDO ??on 05/22/2022 8:47 PM . Narrative 05/22/2022 8:47 PM CDT EXAMINATION: XR KNEE RIGHT 2VW OR LESS HISTORY: M25.561: Right knee pain, unspecified chronicity COMPARISON: Knee radiograph dated 04/14/2021 FINDINGS: The patient is status post resection of the distal femur with hinged knee prosthesis. There is no evidence of complication within the imaged portions of the prosthesis. No significant soft tissue swelling is present. Procedure Note Eliza Galindo MD - 05/22/2022 EXAMINATION: XR KNEE RIGHT 2VW OR LESS HISTORY: M25.561: Right knee pain, unspecified chronicity COMPARISON: Knee radiograph dated 04/14/2021 FINDINGS: The patient is status post resection of the distal femur with hingedknee prosthesis. There is no evidence of complication within the imaged portions of the prosthesis. No significant soft tissue swelling is present. IMPRESSION: Postoperative appearance of and just knee prosthesis without evidence of complication. Dictated by Mj Mayberry MD (senior vice president & general counsel). I, Dr. ELIZA GALINDO have personally reviewed and interpreted this examination/study. This report was electronically signed by ELIZA GALINDO on05/22/2022 8:47 PM . Rashad Holloway MD DIAGNOSTIC IMAGING O RDERABLES * SKIN TEST PPD - POINT OF CARE (07/01/2021 1:03 PM CDT) PPD negative [facility] Comment:no induration Other MISCELLANEOUS SAMPLE S / Unknown 07/01/2021 1:03 PM CDT Selvin Chacon MACHINE PIE MAKER-BARTENDER LAB - POINT OF CARE ORDERABLES [facility] [address] [phone] * XR KNEE RIGHT 3VW (04/14/2021 10:31 PM CDT) Only the most recent of3 resultswithin the time period is included. Anatomical Region Laterality Modality Lower Extremity Radiographic Radha ging 04/15/2021 7:28 AM CDT Impressions 04/15/2021 12:03 PM CDT FINDINGS/IMPRESSION: Postoperative changes of excision of right distal femur osteosarcoma with insertion of a hinged knee are redemonstrated. Hardware appears intact with without periprosthetic lucency to suggest loosening. There is no evidence of acute fracture or dislocation. Bone cement is again seen posterior aspect of the patella, as well as 4 screws. The joint spaces are preserved. No joint effusion is seen. No soft tissue swelling is present. Dictated by Belen Magallanes MD (senior vice president & general counsel). Dr. JOSHUA Aiken have personally reviewed and interpreted this examination/study. This report was electronically signed by JOSHUA DANGELO ??on 04/15/2021 12:03 PM . Narrative 04/15/2021 12:03 PM CDT EXAMINATION: XR KNEE RIGHT 3VW HISTORY: M25.561: Acute pain of right knee COMPARISON: Comparison is made with a study from 12/28/2020 Procedure Note Joshua Dangelo, DO - 04/15/2021 EXAMINATION: XR KNEE RIGHT 3VW HISTORY: M25.561: Acute pain of right knee COMPARISON: Comparison is made with a study from 12/28/2020 FINDINGS/IMPRESSION: Postoperative changes of excision of right distal femur osteosarcomawith insertion of a hinged knee are redemonstrated. Hardware appears intact with without periprosthetic lucency to suggest loosening. There is no evidence of acute fracture or dislocation. Bone cement is again seen posterior aspect of the patella, as well as 4 screws. The joint spacesare preserved. No joint effusion is seen. No soft tissue swelling ispresent. Dictated by Belen Magallanes MD (senior vice president & general counsel). Dr. JOSHUA Aiken have personally reviewed and interpreted this examination/study. This report was electronically signed by JOSHUA DANGELO on 04/15/2021 12:03 PM . Janna Hernández PA-C DIAGNOSTIC IMAGING O RDERABLES * C-REACTIVE PROTEIN (12/29/2020 9:43 PM GROUP PRODUCT MANAGER) Only the most recent of4 resultswithin the time period is included. C-Reactive Protein <0.5 <=0.5 mg/dL 12/29/2020 10:24 PM GROUP PRODUCT MANAGER [facility] Blood BLOOD SPECIMEN / Unknown Venipuncture / Unknown 12/29/2020 9:43 PM GROUP PRODUCT MANAGER 12/29/2020 6:16 PM GROUP PRODUCT MANAGER Sharonda Vera MD LAB - CHEMISTRY ORDE RABTIFFANIE [facility] [address] [place] [phone], [facility] [phone] * (ABNORMAL) ERYTHROCYTE SEDIMENTATION RATE (12/29/2020 9:42 PM GROUP PRODUCT MANAGER) Only the most recent of4 resultswithin the time period is included. Pathologist [facility] [place] Erythrocyte Sedimentation Rate Westergren 63(H) 0 - 20 MM/HR 12/29/2020 10:07 PM GROUP PRODUCT MANAGER [facility] Blood BLOOD SPECIMEN / Unknown Venipuncture / Unknown 12/29/2020 9:42 PM GROUP PRODUCT MANAGER 12/29/2020 6:16 PM GROUP PRODUCT MANAGER Sharonda Vera MD LAB - HEMATOLOGY ORD ERABLES [address] [address], [facility] [phone] * SARS-COV-2 (COVID-19) IN HOUSE (10/03/2020 8:31 PM GROUP PRODUCT MANAGER) Pathologist [facility] [place] COVID-19 PCR Not detected Not detected 10/04/2020 1:03 PM GROUP PRODUCT MANAGER [facility]CRO[facility] Microbiology SPECIMEN FROM NASOPHARYNGEAL STRUCTURE / Unknown Collection / Unknown 10/03/2020 8:31 PM GROUP PRODUCT MANAGER 10/03/2020 8:37 PM GROUP PRODUCT MANAGER Narrative [facility] - 10/04/2020 1:03 PM GROUP PRODUCT MANAGER This nucleic acid amplification assay performance was validated by [facility]. This test has been authorized by the Food and Drug administration (FDA)under an Emergency??Use Authorization (EUA). This test has been validated in accordance with the FDA's guidance document Policy for Diagnostic Testing in Laboratories Certified to perform High Complexity Testing under CLIA prior to Emergency Use Authorization for Coronavirus Disease-2019 during the Public Health Emergency issued on January 28, 2020. FDA independent review of this validation is pending. This test is only authorized for the duration of time the declaration that circumstances exist justifying the authorization of emergency use of in vitro diagnostic tests for detection of SARS-CoV-2 virus and/or diagnosis of COVID-19 infection under section 564(b)(1) of the Act, 21 U.S.C 360bbb-3 (b)(1), unless the authorization is terminated or revoked sooner. Fact Sheets for this EUA assay are available upon request. Vicki Cummings MD LAB - MICROBIOLOGY O RDERABLES [facility] [address] [place] [address], [facility] [phone] * HCG URINE QUALITATIVE (10/03/2020 5:57 PM GROUP PRODUCT MANAGER) Only the most recent of3 resultswithin the time period is included. Pathologist [facility] [place] Test Urine Negative Negative 10/03/2020 6:24 PM GROUP PRODUCT MANAGER [facility] Urine URINE / Unknown Collection / Unknown 10/03/2020 5:57 PM GROUP PRODUCT MANAGER 10/03/2020 6:06 PM GROUP PRODUCT MANAGER Clif Pulido MD LAB - URINALYSIS ORDERABLES Performing Organization Address City/[facility]/ZIP Co de Phone Number [facility] [address] [place] [phone], [place] [phone] * HIV-1 HIV-2 ANTIGEN/ANTIBODY (10/03/2020 3:39 PM GROUP PRODUCT MANAGER) HIV Antigen/Antibod y 1 & 2 Non-reacti ve Non-react marialuisa 10/03/2020 4:28 PM GROUP PRODUCT MANAGER [facility] Comment:Neither HIV-1 p24 An tigen nor HIV-1/HIV-2 Antibodies are detected. Blood BLOOD SPECIMEN / Unknown Venipuncture / Unknown 10/03/2020 3:39 PM GROUP PRODUCT MANAGER 10/03/2020 3:56 PM GROUP PRODUCT MANAGER Clif Pulido MD LAB - HEMATOLOGY ORDERABLES [facility] [address] [place] [address], [facility] [phone] * US EXTREM RIGHT LTD NONVASC (06/06/2019 1:14 PM CDT) Anatomical Region Laterality Modality Ultrasound 06/06/2019 1:21 PM CDT Impressions 06/06/2019 1:24 PM CDT Persistent right inguinal lymphadenopathy. Reading Radiologist: Madie Clark MD on 06/06/2019 at 1:24 PM Narrative 06/06/2019 1:24 PM CDT EXAMINATION: ??ULTRASOUND SOFT TISSUES RIGHT GROIN HISTORY: 23-year-old with history of right femoral osteosarcoma. Follow-up inguinal lymph nodes. COMPARISON: Right lower extremity venous ultrasound with Doppler dated 04/29/2019. FINDINGS: Targeted grayscale and color Doppler of the superficial soft tissues of the right groin was performed over the area of inguinal lymphadenopathy. Enlarged right inguinal lymph nodes persist with the largest measuring 3.2 x 0.9 x 1.7 cm, previously 4.2 x 1.2 cm. Additional smaller right inguinal lymph nodes are seen. Procedure Note Madie Clark MD - 06/06/2019 EXAMINATION: ULTRASOUND SOFT TISSUES RIGHT GROIN HISTORY: 23-year-old with history of right femoral osteosarcoma. Follow-up inguinal lymph nodes. COMPARISON: Right lower extremity venous ultrasound with Doppler dated 04/29/2019. FINDINGS: Targeted grayscale and color Doppler of the superficial soft tissues of the right groin was performed over the area of inguinal lymphadenopathy. Enlarged right inguinal lymph nodes persist with the largest measuring 3.2 x 0.9 x 1.7 cm, previously 4.2 x 1.2 cm. Additional smaller right inguinal lymph nodes are seen. IMPRESSION Persistent right inguinal lymphadenopathy. Reading Radiologist: Madie Clark MD on 06/06/2019 at 1:24 PM Pepito Solano MD US ORDERABLES * US RIGHT VENOUS DOPPLER LOWER EXTREMITY UNILATERAL (04/29/2019 2:57 PM CDT) Anatomical Region Laterality Modality Ultrasound 04/29/2019 3:04 PM CDT Impressions 04/29/2019 3:22 PM CDT No evidence of deep venous thrombosis. Mildly enlarged right inguinal lymph node is indeterminate. Recommend short-term follow-up to document stability and/or resolution. Preliminary findings were discussed with Dr. Solano by Dr. Cr on 04/29/2019 at 3:10 PM. Dictated by Ryan Cr MD (senior vice president & general counsel). Madie Aiken, have personally reviewed the images and I agree with this report. Reading Radiologist: Madie Clark MD on 04/29/2019 at 3:22 PM Narrative 04/29/2019 3:22 PM CDT EXAMINATION: Right lower extremity venous sonogram with Doppler HISTORY: 23-year-old female with elevated d-dimer. History of right femur osteosarcoma. COMPARISON: Right femur and tibia and fibular radiographs on 07/15/2018. FINDINGS: Right lower extremity venous color and spectral waveform Doppler was performed from the right external iliac vein to the popliteal vessels. Color Doppler demonstrates patent veins. The vessels are compressible. No thrombus is identified. There is a mildly enlarged right inguinal lymph node measuring 4.2 cm transverse by 1.2 cm short axis. The fatty hilum is maintained. Additional smaller inguinal lymph nodes are also seen. Procedure Note Madie Clark MD - 04/29/2019 EXAMINATION: Right lower extremity venous sonogram with Doppler HISTORY: 23-year-old female with elevated d-dimer. History of right femur osteosarcoma. COMPARISON: Right femur and tibia and fibular radiographs on 07/15/2018. FINDINGS: Right lower extremity venous color and spectral waveform Doppler was performed from the right external iliac vein to the popliteal vessels. Color Doppler demonstrates patent veins. The vessels are compressible. No thrombus is identified. There is a mildly enlarged right inguinal lymph node measuring 4.2 cm transverse by 1.2 cm short axis. The fatty hilum is maintained. Additional smaller inguinal lymph nodes are also seen. IMPRESSION No evidence of deep venous thrombosis. Mildly enlarged right inguinal lymph node is indeterminate. Recommend short-term follow-up to document stability and/or resolution. Preliminary findings were discussed with Dr. Solano by Dr. Cr on 04/29/2019 at 3:10 PM. Dictated by Ryan Cr MD (senior vice president & general counsel). I, Ting Eduardo, have personally reviewed the images and I agree with this report. Reading Radiologist: Madie Clark MD on 04/29/2019 at 3:22 PM Pepito Solano MD US ORDERABLES * CARDIAC HOLTER MONITOR ORDER (06/18/2018 6:43 PM CDT) Narrative 06/18/2018 6:43 PM CDT Ordered by an unspecified provider. Scanned Document CARDIAC SERVICES ORD ERABLES * CULTURE MRSA (04/16/2018 3:12 PM CDT) Only the most recent of2 resultswithin the time period is included. Culture Negative for methicillin-resist ant Staphylococcus aureus (MRSA) LY 04/18/2018 6:27 AM CDT [facility] Microbiology SPECIMEN FROM NASAL FOSSAE / Unknown Collection / Unknown 04/16/2018 3:12 PM CDT 04/16/2018 3:48 PM CDT Aguila Jacinto MD LAB - MICROBIOLOG Y ORDERABLES [facility] [address] [place] [address], [facility] [phone] * ECHO CONSULT - PEDIATRIC (04/16/2018 3:05 PM CDT) Only the most recent of9 resultswithin the time period is included. 04/16/2018 3:05 PM CDT Narrative Procedure Note Aguila Jacinto MD - 04/16/2018 [facility] [place] [address] Fax Congenital Transthoracic Report Pat.Name: GEORGINA BISHOP.ID: [id number] St.Date: 04/16/2018 Exam Time: 3:05:00 PM Study Type:Congenital TTE Height: 156.3cm Weight: 63.8kg BSA: 1.64 m2 Age: 8 1995,22Y Sex: FEMALE BP: 96/60 Sonogrphr: Letha Bear [facility] Pat. Stat.:Outpatient Reason for Study:Dilated Cardiomyopathy Procedures:2D Non-congenital, Doppler Complete, Color Flow Visit ID: [id number] SUMMARY: Impression: Normal intracardiac anatomy and normal biventricular systolic function. No pathologic valve stenosis or regurgitation. global strain is -19 to -23 Findings: Anatomic Relationships: Abdominal situs solitus. There is levocardia. Atrial situs solitus. The AV alignment is concordant. The ventricular looping is D-looped. The VA connection is concordant. The arterial relationships are normal. Systemic Veins: Normal right SVC. Normal IVC. Pulmonary Veins: Pulmonary veins drain normally to LA. Right Atrium: The right atrial size is normal. Left Atrium: The left atrial size is normal. Atrial Septum: Intact atrial septum. Left to right atrial shunt, none. Tricuspid Valve: The tricuspid valve is structurally normal. There is no stenosis. There is physiologic regurgitation present. Mitral Valve: The mitral valve is structurally normal. There is no stenosis. There is trivial regurgitation present. Right Ventricle: The cavity size is normal. The wall thickness is normal. The systolic function is normal. RV Outflow Tract: The outflow tract is normal. Left Ventricle: The cavity size is normal. The wall thickness is normal. The systolic function is normal. LV Outflow Tract: The outflow tract is normal. Ventricular Septum: The septal motion is normal. There is no defect with no shunting. Pulmonary Valve: The pulmonic valve is structurally normal. There is no stenosis. There is physiologic regurgitation present. Aortic Valve: The aortic valve is structurally normal. There is no stenosis. There is no regurgitation present. Pulmonary Artery: The MPA is normal. The LPA is normal. The RPA is normal. Aorta: The aortic root is normal. The aortic arch is patent. The arch sidedness is not evaluated. PDA: No PDA with no shunting. Coronary Arteries: Not visualized. Pericardium: No pericardial effusion. MEASUREMENTS: 2D Myocardial Wall QLab aCMQ Strain peak parveen -19 % Strain peak parveen -21 % Strain peak parveen -15 % Strain peak parveen -18 % Signed 04/16/2018 04:12 PM Aguila Jacinto MD Aguila Jacinto MD ECHO ORDERABLES [facility] [address] [place] [address] * CARDIAC RHYTHM STRIP ORDER (12/04/2015 8:11 PM GROUP PRODUCT MANAGER) Narrative 12/04/2015 8:11 PM GROUP PRODUCT MANAGER Ordered by an unspecified provider. Scanned Document CARDIAC SERVICES ORD ERABLES * IMAGING/RADIOLOGY/XRAY RESULTS ORDER (12/04/2015 8:00 PM GROUP PRODUCT MANAGER) Anatomical Region Laterality Modality Other Narrative 12/04/2015 8:00 PM GROUP PRODUCT MANAGER Ordered by an unspecified provider. Scanned Document IMAGING * GLUCOSE - POINT OF CARE (11/30/2015 10:34 AM GROUP PRODUCT MANAGER) Pathologist [facility] [place] Glucose WB/POC 89 70 - 106 mg/dL 12/01/2015 4:55 AM GROUP PRODUCT MANAGER [facility] Blood BLOOD SPECIMEN / Unknown 11/30/2015 10:34 AM GROUP PRODUCT MANAGER 12/01/2015 4:55 AM GROUP PRODUCT MANAGER Wilmer Pollard MD LAB - POINT OF CARE ORDERABLES [facility] [address] [id number] * (ABNORMAL) HGB HCT PANEL (11/30/2015 8:24 AM GROUP PRODUCT MANAGER) Only the most recent of4 resultswithin the time period is included. Pathologist [facility] [place] Hemoglobin 10.8(L) 12.0 - 15.6 gm/dL 11/30/2015 8:42 AM GROUP PRODUCT MANAGER [facility] Hematocrit 31.3(L) 35.9 - 45.5 % 11/30/2015 8:42 AM GROUP PRODUCT MANAGER [facility] Blood BLOOD SPECIMEN / Unknown Lab Venipuncture / Unknown 11/30/2015 8:24 AM GROUP PRODUCT MANAGER 11/30/2015 8:35 AM GROUP PRODUCT MANAGER Pepe Hernandez MD LAB - HEMATOLOGY ORD ERABLES [facility] [address] [address] * TRANSFUSE RED BLOOD CELL UNIT(S) (11/28/2015 5:05 PM GROUP PRODUCT MANAGER) Maciel Brian MD NURSING - BLOOD PRO D TRANSFUSION * TRANSFUSE RED BLOOD CELL UNIT(S) (11/28/2015 2:43 PM GROUP PRODUCT MANAGER) Maciel Brian MD NURSING - BLOOD PRO D TRANSFUSION * GROSS EXAM PATHOLOGY (STL) (11/26/2015 5:50 PM GROUP PRODUCT MANAGER) Case Report Surgical Pathology Report ? Case: [id number] ? Authorizing Provider: ??Wilmer Pollard MD ? Collected: ? 11/26/2015 05:50 PM ? Ordering Location: ? [facility] ? Received: ?11/27/2015 09:10 AM ? Pathologist: ? Ambika Pena MD ? Specimens: ?? A) - Soft Tissue, Right knee hardware removal ? B) - Hardware ? 11/28/2015 2:[address] [facility] Final Diagnosis A. Soft tissue, right knee, excision: - ??Fibrotic tissue with collections of pigment containing macrophages, mild chronic ?? inflammation, and foreign body giant cell reaction to polarizable material B. Hardware, right knee, removal: - ??Consistent with hardware (gross only) - ??See gross description KL/sm 11/28/2015 2:[address] [facility] Gross Description Two specimens are received labeled Georgina Bishop. A - Knee tissue right knee, is received in formalin and contains multiple fragments of hobbs-beverly probably skin and soft tissue measuring in aggregate 9.0 x 7.0 x 0.5 cm. Both portions of tissue appear to be some sort of necrotic skin, hobbs-brown. Multiple merchandising representative sections are submitted in A1-A2. B - Right knee hardware, is received fresh and contains a plastic knee component and a metal knee component. The metal tibial component measures 12.7 x 5.3 x 5.0 cm, has an extended metallic shaft measuring 10.1 cm. There is hobbs cement attached to the shaft and no ridge identifiable on the specimen. The femoral component is plastic and metal, measures 22.0 x 4.5 x 5.2 cm and has a metallic extension measuring 4.0 cm at the proximal end. The following verbiage is present on this specimen Beard sz 5 right [id number]. Material is smooth and unremarkable. The specimen is submitted for gross exam only. LS/scs 11/28/2015 2:[address] [facility] Microscopic Description Histologic sections show fibrotic tissue with chronic inflammation, collections of lightly pigmented macrophages and foreign body giant cell reaction to polarizable foreign material. ??Significant acute inflammation is not identified. ??There is no evidence of malignancy. KL/sm 11/28/2015 2:03 PM GROUP PRODUCT MANAGER [facility] Pathology/Cytology SOFT TISSUE BIOPSY SPECIMEN / Unknown 11/26/2015 5:50 PM GROUP PRODUCT MANAGER 11/27/2015 9:10 AM GROUP PRODUCT MANAGER Miscellaneous samples (specimen) DEVICE / Unknown 11/26/2015 5:50 PM GROUP PRODUCT MANAGER 11/27/2015 9:10 AM GROUP PRODUCT MANAGER Wilmer Pollard MD LAB - PATHOLOGY/CYTO LOGY ORDERABLES [facility] [address] [place] [id number] * CULTURE FUNGUS OTHER+FUNGUS SMEAR (11/26/2015 2:04 PM GROUP PRODUCT MANAGER) Only the most recent of2 resultswithin the time period is included. Culture No Fungus Isolated in 4 Weeks LY 12/25/2015 8:[address] [facility] Fungus Smear No yeast or hyphae seen 12/25/2015 8:41 AM GROUP PRODUCT MANAGER [facility] Microbiology ENTIRE KNEE REGION / Unknown Collection / Unknown 11/26/2015 2:04 PM GROUP PRODUCT MANAGER 11/26/2015 2:24 PM GROUP PRODUCT MANAGER Wilmer Pollard MD LAB - MICROBIOLOGY O RDERABLES [facility] [address] [place] [address], [facility] [phone] * CULTURE TISSUE+GRAM STAIN (11/26/2015 2:04 PM GROUP PRODUCT MANAGER) Culture No Growth LY 12/03/2015 6:19 AM GROUP PRODUCT MANAGER [facility] Gram Stain Light Red blood cells 12/03/2015 6:19 AM GROUP PRODUCT MANAGER [facility] Gram Stain No organisms seen 12/03/2015 6:19 AM [facility] Microbiology ENTIRE KNEE REGION / Unknown Collection / Unknown 11/26/2015 2:04 PM GROUP PRODUCT MANAGER 11/26/2015 2:24 PM GROUP PRODUCT MANAGER Wilmer Pollard MD LAB - MICROBIOLOGY O JM Performing Organization Address City/[facility]/ZIP Co de Phone Number [facility] [address] [place] [address], [facility] [phone] * CULTURE ANAEROBE (11/26/2015 2:04 PM GROUP PRODUCT MANAGER) Only the most recent of2 resultswithin the time period is included. Culture No anaerobic organisms isolated LY 12/03/2015 8:29 AM GROUP PRODUCT MANAGER [facility] Microbiology ENTIRE KNEE REGION / Unknown Collection / Unknown 11/26/2015 2:04 PM GROUP PRODUCT MANAGER 11/26/2015 2:24 PM GROUP PRODUCT MANAGER Wilmer Pollard MD LAB - MICROBIOLOGY O JM Performing Organization Address [facility] Co de Phone Number [facility] [address] [place] [address], [facility] [phone] * CULTURE WOUND+GRAM STAIN (11/26/2015 1:58 PM GROUP PRODUCT MANAGER) Culture No Growth LY 11/29/2015 8:58 AM GROUP PRODUCT MANAGER [facility] Microbiology ENTIRE KNEE REGION / Unknown Collection / Unknown 11/26/2015 1:58 PM GROUP PRODUCT MANAGER 11/26/2015 2:24 PM GROUP PRODUCT MANAGER Wilmer Pollard MD LAB - MICROBIOLOGY O JM Performing Organization Address City/[facility]/ZIP Co de Phone Number [facility] [address] [place] [address], [facility] [phone] * CROSSMATCH RBC (11/26/2015 1:23 PM GROUP PRODUCT MANAGER) Only the most recent of2 resultswithin the time period is included. Unit Donor # [id number] 11/28/2015 11:39 PM GROUP PRODUCT MANAGER [facility] Product Code E0336 11/28/2015 11:39 PM GROUP PRODUCT MANAGER [facility] Unit Description E0336 RBC, LR, CPD>AS1 11/28/2015 11:39 PM GROUP PRODUCT MANAGER [facility] ABO Donor Type A 11/28/2015 11:39 PM GROUP PRODUCT MANAGER [facility] Rh Type Unit POS 11/28/2015 11:[address] [facility] Crossmatch Interpretation Compatible 11/28/2015 11:[address] [facility] Unit Status Transfused Unit 11/28/2015 11:[address] [facility] Blood Bank BLOOD SPECIMEN / Unknown 11/26/2015 1:23 PM GROUP PRODUCT MANAGER 11/26/2015 1:38 PM GROUP PRODUCT MANAGER Aroldo Matthews DO LAB - BLOOD BANK OR DERABLES [facility] [address] [phone] * URINALYSIS ROUTINE W/REFLEX TO CULTURE (11/26/2015 1:18 PM [facility]) Color UA Yellow Straw, Yellow, Dark Yellow 11/26/2015 2:[address] [facility] Clarity UA Clear 11/26/2015 2:[address] [facility] Specific [place] UA 1.008 1.005 - 1.030 11/26/2015 2:[address] [facility] pH UA 6.0 5.0 - 8.0 pH 11/26/2015 2:[address] [facility] Protein UA Negative Negative 11/26/2015 2:[address] [facility] Blood UA Negative Negative 11/26/2015 2:[address] [facility] Leukocyte UA Negative Negative 11/26/2015 2:[address] [facility] Nitrite UA Negative Negative 11/26/2015 2:[address] [facility] Glucose UA Negative Negative 11/26/2015 2:[address] [facility] Ketone UA Negative Negative 11/26/2015 2:[address] [facility] Bilirubin UA Negative Negative 11/26/2015 2:[address] [facility] Urobilinogen UA 0.2 0.1 - 1.0 EU/dL 11/26/2015 2:[address] [facility] Reflex Status Culture not indicated 11/26/2015 2:[address] [facility] Urine URINE SPECIMEN OBTAINED VIA INDWELLING URINARY CATHETER / Unknown Collection / Unknown 11/26/2015 1:18 PM GROUP PRODUCT MANAGER 11/26/2015 2:24 PM GROUP PRODUCT MANAGER Wilmer Pollard MD LAB - URINALYSIS ORD ERABLES [facility] [address] [id number] * PERIPHERAL BLOCK (11/26/2015 12:48 PM GROUP PRODUCT MANAGER) Narrative Aroldo Matthews DO - 11/26/2015 12:48 PM GROUP PRODUCT MANAGER Aroldo Matthews, DO ? 11/26/2015 12:48 PM Peripheral Block Patient Location: ??pre-op Pre Procedure Indication: ??at surgeon's request and post-operative analgesia Preanesthetic Checklist: ??patient identified, IV checked, site marked, risks and benefits discussed, surgical consent verified, monitors and equipment checked, pre-op evaluation done, timeout performed, informed consent obtained and questions answered / anesthesia plan accepted Monitors: ??Pulse Ox Patient Condition: ??sedated, meaningful contact maintained Patient Position: ??supine Procedure Laterality: ??right Block Performed: ??femoral Prep: ??Chloraprep Sterile Field: ??sterile field established and sterile gloves Skin Numbed with: ??lidocaine 1% Needle Type: ??nerve stimulator Needle Gauge: ??21 Needle Length: ??100 mm Ultrasound guided Technique: ??in plane Visualization: ??target ID'd, good spread of local around target and Ultrasound image in chart Block Agent: ??ropivacaine 0.2% 40 mL Epinephrine in Block Agent: ??none Other Additives: ? clonidine 100 mcg ? Injection was made incrementally with constant monitoring and aspirations every 5 mL's. Events blood not aspirated injection not painful no injection resistance no paresthesia no other events Block Performed by: ??dr matthews This block was performed for post operative analgesia at surgeon's request. Please see intraop navigator for medications administered. ??Sterile technique followed. ?? Aroldo Matthews DO GENERAL ANESTHESIA ORDERABLES * HCG URINE QUALITATIVE - POINT OF CARE (IP) (11/26/2015 10:45 AM GROUP PRODUCT MANAGER) Only the most recent of2 resultswithin the time period is included. HCG Qual Urine Negative Negative [facility] POCT TESTING QC Verified Yes Yes [facility] POC T TESTING Urine specimen (specimen) URINE / Unknown 11/26/2015 10:45 AM GROUP PRODUCT MANAGER Wilmer Pollard MD LAB - POINT OF CARE ORDERABLES [facility] POCT TESTING [address] [place], [place] [id number] [place] [address] * APHERESIS/TRANSFUSION ORDER (11/16/2015 9:05 PM GROUP PRODUCT MANAGER) Narrative 11/16/2015 9:05 PM GROUP PRODUCT MANAGER Ordered by an unspecified provider. Scanned Document NURSING - VITAL SIGN S AND ASSESSMENT * BLOOD TYPE VERIFICATION (11/15/2015 10:36 AM GROUP PRODUCT MANAGER) ABO A 11/15/2015 11:30 AM GROUP PRODUCT MANAGER [facility] Rh Type Positive 11/15/2015 11:30 AM GROUP PRODUCT MANAGER [facility] Blood Bank BLOOD SPECIMEN / Unknown Lab Venipuncture / Unknown 11/15/2015 10:36 AM GROUP PRODUCT MANAGER 11/15/2015 10:43 AM GROUP PRODUCT MANAGER Wilmer Pollard MD LAB - BLOOD BANK ORD ERABLES [facility] [address] [facility] [address] [phone] * TYPE + SCREEN PANEL (11/15/2015 9:54 AM GROUP PRODUCT MANAGER) ABO A 11/15/2015 11:15 AM GROUP PRODUCT MANAGER [facility] Rh Type Positive 11/15/2015 11:15 AM GROUP PRODUCT MANAGER [facility] Comment:History check perfor med. Retype required. Antibody Screen Negative 11/15/2015 11:15 AM GROUP PRODUCT MANAGER [facility] Blood Bank BLOOD SPECIMEN / Unknown Lab Venipuncture / Unknown 11/15/2015 9:54 AM GROUP PRODUCT MANAGER 11/15/2015 10:11 AM GROUP PRODUCT MANAGER Wilmer Pollard MD LAB - BLOOD BANK ORD ERABLES [facility] [address] [address], [facility] [phone] * CULTURE MSSA/MRSA (11/08/2015 10:41 AM GROUP PRODUCT MANAGER) Culture Negative for MRSA/MSSA LY 11/09/2015 3:06 PM GROUP PRODUCT MANAGER [facility] Microbiology SPECIMEN FROM NASAL FOSSAE / Unknown Collection / Unknown 11/08/2015 10:41 AM GROUP PRODUCT MANAGER 11/08/2015 10:54 AM GROUP PRODUCT MANAGER Wilmer Pollard MD LAB - MICROBIOLOGY O RDERABLES [facility] [employer] MICROBIOLOGY [address] [place] [address], [facility] [phone] * NM BONE SCAN 3 PHASE (07/27/2015 3:51 PM CDT) Anatomical Region Laterality Modality Nuclear Medicine 07/27/2015 3:54 PM CDT Impressions 07/27/2015 5:18 PM CDT 1. Increased radiotracer uptake in the tibial component of the right leg prosthesis concerning for loosening. Mild periprosthetic uptake in the femoral component of the prosthesis likely reactive with no definite evidence of loosening. 2. ??Mild linear radiotracer uptake in the left side, likely compensatory weight-bearing changes. Dictated by Ana María Hummel on 07/27/2015 4:04 PM I, Atif Berumen, have personally reviewed the images and I agree with this report. Narrative 07/27/2015 5:18 PM CDT Three Phase Bone Scan and whole body scan HISTORY: 20 years old female with known history of right femoral osteosarcoma status post resection and leg prosthesis. TECHNIQUE: 14.5 mCi 99m- technetium MDP was injected IV. Dynamic flow images of the right hand were obtained immediately following the injection of radiopharmaceutical. Immediate blood pool image was obtained. After 3 hours of rest static images of this region were obtained. An anterior and posterior whole body scan were obtained. FINDINGS: No prior studies available for comparison. The dynamic flow study demonstrated slight decreased flow to the thinner appearing right thigh compared to the left. The immediate blood pool image demonstrated linear photopenic defect in the right thigh related to known prostheses. Relative decrease soft tissue radiotracer in the right thigh relative to the left, likely due to disuse atrophy. Increased soft tissue radiotracer accumulation in the proximal right tibia correlates to the distal part of the leg prosthesis. Delayed images demonstrate moderate increased radiotracer uptake in the tibial component of the right leg prosthesis concerning for loosening. There is mild increased periprosthetic uptake in the femoral component, likely reactive. Mild linear increased radiotracer uptake in the left tibial shaft likely due to compensatory weight bearing changes. Mild radiotracer uptake is noted in bilateral breasts which is appropriate for patient's age. 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 TECHNIQUE: 14.5 mCi 99m- technetium MDP was injected IV. Dynamic flow images of the right hand were obtained immediately following the injection of radiopharmaceutical. Immediate blood pool image was obtained. After 3 hours of rest static images of this region were obtained. An anterior and posterior whole body scan were obtained. FINDINGS: No prior studies available for comparison. The dynamic flow study demonstrated slight decreased flow to the thinner appearing right thigh compared to the left. The immediate blood pool image demonstrated linear photopenic defect in the right thigh related to known prostheses. Relative decrease soft tissue radiotracer in the right thigh relative to the left, likely due to disuse atrophy. Increased soft tissue radiotracer accumulation in the proximal right tibia correlates to the distal part of the leg prosthesis. Delayed images demonstrate moderate increased radiotracer uptake in the tibial component of the right leg prosthesis concerning for loosening. There is mild increased periprosthetic uptake in the femoral component, likely reactive. Mild linear increased radiotracer uptake in the left tibial shaft likely due to compensatory weight bearing changes. Mild radiotracer uptake is noted in bilateral breasts which is appropriate for patient's age. IMPRESSION 1. Increased radiotracer uptake in the tibial component of the right leg prosthesis concerning for loosening. Mild periprosthetic uptake in the femoral component of the prosthesis likely reactive with no definite evidence of loosening. 2. Mild linear radiotracer uptake in the left side, likely compensatory weight-bearing changes. Dictated by Ana María Hummel on 07/27/2015 4:04 PM Atif Aiken, have personally reviewed the images and I agree with this report. Wilmer Pollard MD NM ORDERABLES * (ABNORMAL) DIFFERENTIAL MANUAL (07/27/2015 2:36 PM CDT) WBC Auto 7.9 4.4 - 10.7 x10^9/L 07/27/2015 4:18 PM CDT [facility] WBC Corrected 4.4 - 10.7 x10^9/L 07/27/2015 4:18 PM CDT [facility] nRBC /100 WBC 07/27/2015 4:18 PM CDT [facility] Neutrophil % Manual 68 44 - 73 % 07/27/2015 4:18 PM CDT [facility] Lymphocytes % Manual 26 20 - 43 % 07/27/2015 4:18 PM CDT [facility] Monocytes % Manual 4(L) 5 - 13 % 07/27/2015 4:18 PM CDT [facility] Basophils % Manual 1 0 - 2 % 07/27/2015 4:18 PM CDT [facility] Band % Manual 1 0 - 11 % 07/27/2015 4:18 PM CDT [facility] Cells Counted 100 # cells 07/27/2015 4:18 PM CDT [facility] Platelet Estimation Adequate platelets Normal, Adequate platelets 07/27/2015 4:18 PM CDT [facility] RBC Morphology Normal 07/27/2015 4:18 PM CDT [facility] WBC Morph Normal 07/27/2015 4:18 PM CDT [facility] Blood BLOOD SPECIMEN / Unknown Lab Venipuncture / Unknown 07/27/2015 2:36 PM CDT 07/27/2015 3:15 PM CDT Pepito Solano MD LAB - HEMATOLOGY ORD ERABLES [facility] [place], [place] [id number] * XR BONE LENGTH SCANOGRAM (07/27/2015 12:13 PM CDT) Only the most recent of3 resultswithin the time period is included. Anatomical Region Laterality Modality Lower Extremity, Pelvis Computed Tomography 07/27/2015 2:51 PM CDT Impressions 07/27/2015 2:57 PM CDT Limb length discrepancy, right shorter than left. Pelvic tilt, left higher than right. Narrative 07/27/2015 2:57 PM CDT Exam: Scanogram History: 20-year-old female with history of distal right femoral osteosarcoma status post limb salvage procedure Comparison: 05/27/2013 Findings: A metal prosthesis is seen in the distal femur and proximal tibia. The right leg measures 67.6 cm, and the left leg measures 72.5 cm. The right leg is 4.9 cm shorter than the left. The left femur measures 40.2 cm. The left tibia measures 32.5 cm. The patella seen adjacent to the distal right femoral listhesis is unchanged in appearance on this exam. Both hips are seated. There is no talar tilt. The left iliac crest is 1 cm higher than the right. The appearance of the remaining proximal right femur is unchanged. Procedure Note Corrina Jaimes MD - 07/27/2015 Exam: Scanogram History: 20-year-old female with history of distal right femoral osteosarcoma status post limb salvage procedure Comparison: 05/27/2013 Findings: A metal prosthesis is seen in the distal femur and proximal tibia. The right leg measures 67.6 cm, and the left leg measures 72.5 cm. The right leg is 4.9 cm shorter than the left. The left femur measures 40.2 cm. The left tibia measures 32.5 cm. The patella seen adjacent to the distal right femoral listhesis is unchanged in appearance on this exam. Both hips are seated. There is no talar tilt. The left iliac crest is 1 cm higher than the right. The appearance of the remaining proximal right femur is unchanged. IMPRESSION Limb length discrepancy, right shorter than left. Pelvic tilt, left higher than right. Wilmer Pollard MD DIAGNOSTIC IMAGING O RDERABLES * INFLUENZA A+B ANTIGEN RAPID (01/30/2014 9:20 PM GROUP PRODUCT MANAGER) Influenza A Antigen Negative Negative 01/30/2014 9:41 PM GROUP PRODUCT MANAGER [facility] Influenza B Antigen Negative Negative 01/30/2014 9:41 PM [facility] Microbiology NASOPHARYNGEAL SWAB / Unknown 01/30/2014 9:20 PM GROUP PRODUCT MANAGER 01/30/2014 9:27 PM GROUP PRODUCT MANAGER Roger Miranda MD LAB - MICROBIOLOGY ORDERABLES Performing Organization Address [facility] Co de Phone Number [facility] [place] [address] * EKG 15-LEAD (01/30/2014 9:17 PM GROUP PRODUCT MANAGER) Only the most recent of2 resultswithin the time period is included. Ventricular Rate 81 BPM CG MUSE Atrial Rate 88 BPM CG MUSE P-R Interval 118 ms CG MUSE QRS Duration ms 74 ms CG MUSE Q-T Interval ms 392 ms CG MUSE QTC Calculation (Bezet) 455 ms CG MUSE Calculated P [place] 58 degrees CG MUSE Calculated R [place] 20 degrees CG MUSE Calculated T [place] 55 degrees CG MUSE Interpretation EKG Normal sinus rhythm with sinus arrhythmia Normal ECG When compared with ECG of 12-JUL-2012 16:37, Premature atrial complexes are no longer Present Confirmed by VERENICE TRAN ([id number]) on 02/02/2014 4:46:23 PM CG MUSE 01/30/2014 9:17 PM GROUP PRODUCT MANAGER 02/02/2014 4:46 PM GROUP PRODUCT MANAGER Narrative CG MUSE - 02/02/2014 4:46 PM GROUP PRODUCT MANAGER Procedure Note Document, Scanned - 01/31/2014 7:42 AM CST Transcriptions Document, Scanned - 01/31/2014 7:42 AM CST Document, Scanned - 02/02/2014 4:46 PM CST Ken Copeland MD ECG ORDERABLES Performing Organization Address [facility] Co de Phone Number CG MUSE * XR ANKLE 3+ VW RIGHT (04/22/2013 2:38 PM CDT) Anatomical Region Laterality Modality Lower Extremity Radiographic Radha ging 04/22/2013 2:49 PM CDT Impressions 04/22/2013 2:49 PM CDT Marked osteopenia, not significantly changed the prior examination of 2010. Narrative 04/22/2013 2:49 PM CDT EXAMINATION: RIGHT XR ANKLE 2 VW RIGHT*[id number] ??dated April 22, 2013 02:38:08 PM. HISTORY: Pain while walking. FINDINGS: AP, lateral, and mortise views of the left ankle were obtained. Comparison is made to the prior tibia and fibula examination views performed on April 01, 2011. There is marked osteopenia seen involving the tarsal bones and distal tibia and fibula in a pattern not significantly changed the previous examination. I do not see a definite fracture, though given the degree of osteopenia a radiographically occult fracture cannot be excluded. ?? No soft tissue swelling or radiopaque foreign bodies are noted. ??No other imaging abnormality is appreciated. Procedure Note Anthony Lind - 04/22/2013 EXAMINATION: RIGHT XR ANKLE 2 VW RIGHT*[id number] dated April 22, 2013 02:38:08 PM. HISTORY: Pain while walking. FINDINGS: AP, lateral, and mortise views of the left ankle were obtained. Comparison is made to the prior tibia and fibula examination views performed on April 01, 2011. There is marked osteopenia seen involving the tarsal bones and distal tibia and fibula in a pattern not significantly changed the previous examination. I do not see a definite fracture, though given the degree of osteopenia a radiographically occult fracture cannot be excluded. No soft tissue swelling or radiopaque foreign bodies are noted. No other imaging abnormality is appreciated. IMPRESSION Marked osteopenia, not significantly changed the prior examination of 2010. Pepito Solano MD DIAGNOSTIC IMAGING O RDERABLES * IP CONSULT TO PEDIATRIC ORTHOPEDICS (07/26/2012 12:36 PM CDT) Margy Sanchez MD - 07/26/2012 12:36 PM CDT Margy Crowder MD ? 07/26/2012 12:36 PM CC: Right knee pain, swelling and fevers. HPI: Georgina is an 16 year old female with history of RLE osteosarcoma, cardiomyopathy that has a prosthesis in the RLE. 07/09 she underwent lengthening procedure that required increased number of warmings to be effective and had greater lengthening than was planned. She had a fever of 102.4 today along with the chills. She denies diarrhea, nausea, vomiting. She is supposed to be NWB on the extremity and not bending the knee. Patient spoke with Dr. Pollard's office today and was advised to come to ED. Has had prior infections requiring hardware removal and IV antibiotics. Per patient the swelling has improved but the pain and fever are worse. Past Medical History Diagnosis Date ? ? Cardiomyopathy ?secondary to treatment (Chemo) for cancer. ??Last cardiology appt ??03/07/11 ??On Enalapril ??Last ECHO -- results in cardiology note ? ? 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 ? Chronic tonsillitis ?? Past Surgical History Procedure Date ? ? Other surgery ?45 surgeries for osteosarcoma and ports ? ? Cholecystectomy 06/2010 ? ? Knee replacement ?x4 Allergies Allergen Reactions ? ? Ceftazidime Urticaria ? ? Codeine ?Tylenol #3 (per mom) Heart racing and 'can't breath' No current facility-administered medications on file prior to encounter. Current Outpatient Prescriptions on File Prior to Encounter Medication Sig Dispense Refill ? ? enalapril (VASOTEC) 20 MG tablet Take 1 Tab by mouth once daily. ??30 Tab ??12 ? ? hydrocodone-acetaminophen solution (LORTAB) 7.5-500 MG/15ML solution Take 15 mL by mouth every 4 hours as needed. ? ROS: negative except that listed above SH: lives at home with parents Objective: Gen: lethargic (just received pain medication), conversant, A&Ox3 CV: regular rate Resp: equal chest rise, no audible wheezes RLE: knee warm to touch without erythema or effusion, refuses to flex knee, moderate swelling present at the proximal tibia, compartments soft, no pain with passive toe flex/ext, Arnaldo's sign negative, knee incision healed and without erythema, SILT DP/SP/tibial nerves, +motor EHL/FHL/AT/GSC, 2+ DP pulses C-reactive protein=12 ESR=45 WBC=8.4 Blood cultures pending Assessment: 16 YOF with osteosarcoma s/p prosthetic lengthening now with signs/symptoms of infection. Has had infected hardware in the past. Plan: No effusion to aspirate at knee. Plan to be determined by Dr. Pollard as this is his primary patient, and he is aware that she has presented to the ED as well as her current condition. This has been discussed with Dr. Crowder. Procedure Note Margy Crowder MD - 07/12/2012 10:23 PM CDT CC: Right knee pain, swelling and fevers. HPI: Georgina is an 16 year old female with history of RLE osteosarcoma,cardiomyopathy that has a prosthesis in the RLE. 07/09 she underwentlengthening procedure that required increased number of warmings to beeffective and had greater lengthening than was planned. She had a fever of102.4 today along with the chills. She denies diarrhea, nausea, vomiting.She is supposed to be NWB on the extremity and not bending the knee.Patient spoke with Dr. Pollard's office today and was advised to come toED. Has had prior infections requiring hardware removal and IVantibiotics. Per patient the swelling has improved but the pain and fever are worse. Past Medical History Diagnosis Date ? ? Cardiomyopathy secondary to treatment (Chemo) for cancer. Last cardiology appt03/07/11 On Enalapril Last ECHO -- results in cardiology note ? ? 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 ? Chronic tonsillitis Past Surgical History Procedure Date ? ? Other surgery 45 surgeries for osteosarcoma and ports ? ? Cholecystectomy 06/2010 ? ? Knee replacement x4 Allergies Allergen Reactions ? ? Ceftazidime Urticaria ? ? Codeine Tylenol #3 (per mom) Heart racing and 'can't breath' No current facility-administered medications on file prior to encounter. Current Outpatient Prescriptions on File Prior to Encounter Medication Sig Dispense Refill ? ? enalapril (VASOTEC) 20 MG tablet Take 1 Tab by mouth once daily. 30 Tab12 ? ? hydrocodone-acetaminophen solution (LORTAB) 7.5-500 MG/15ML solutionTake 15 mL by mouth every 4 hours as needed. ROS: negative except that listed above SH: lives at home with parents Objective: Gen: lethargic (just received pain medication), conversant, A&Ox3 CV: regular rate Resp: equal chest rise, no audible wheezes RLE: knee warm to touch without erythema or effusion, refuses to flexknee, moderate swelling present at the proximal tibia, compartments soft,no pain with passive toe flex/ext, Arnaldo's sign negative, knee incisionhealed and without erythema, SILT DP/SP/tibial nerves, +motorEHL/FHL/AT/GSC, 2+ DP pulses C-reactive protein=12 ESR=45 WBC=8.4 Blood cultures pending Assessment: 16 YOF with osteosarcoma s/p prosthetic lengthening now withsigns/symptoms of infection. Has had infected hardware in the past. Plan: No effusion to aspirate at knee. Plan to be determined by Dr. Gallo this is his primary patient, and he is aware that she has presented tot ED as well as her current condition. This has been discussed with . Jemima Chan MD INPATIENT CONSULT O RDERABLES * CULTURE BLOOD (07/12/2012 7:22 PM CDT) Culture SEE BELOW 07/18/2012 5:21 AM CDT [facility] Comment: - Final - No growth Blood specimen (specimen) PERIPHERAL BLOOD / Unknown 07/12/2012 7:22 PM CDT 07/12/2012 7:34 PM CDT Jemima Chan MD LAB - MICROBIOLOGY ORDERABLES [facility] [address] [place], [place] [address], [facility] * DEXA BONE DENSITY AXIAL SKELETON (09/09/2011 1:53 PM CDT) Anatomical Region Laterality Modality Radiographic Radha ging 09/09/2011 2:17 PM CDT Impressions 09/09/2011 2:17 PM CDT Low bone mineral density for age. Narrative 09/09/2011 2:17 PM CDT Bone densitometry [employer] A ([id number]) Software version 13.0 [facility] Referring Physician: Xiomara Patient age: 16 years Gender: Female Height: 63 inches Weight: 105 pounds Indication: Bone tumor Technical quality: Adequate Left hip: Bone mineral content: 18.34 g Bone mineral density: 0.733 g/cm2 Z-score: -2.3 Lumbar spine: Bone mineral content: 34.50 g Bone mineral density: 0.755 g/cm2 Z-score: -2.8 Procedure Note Elisabeth Rodrigues MD - 09/09/2011 Bone densitometry [employer] A ([id number]) Software version 13.0 [facility] Referring Physician: Xiomara Patient age: 16 years Gender: Female Height: 63 inches Weight: 105 pounds Indication: Bone tumor Technical quality: Adequate Left hip: Bone mineral content: 18.34 g Bone mineral density: 0.733 g/cm2 Z-score: -2.3 Lumbar spine: Bone mineral content: 34.50 g Bone mineral density: 0.755 g/cm2 Z-score: -2.8 IMPRESSION Low bone mineral density for age. Chandni Marin MACHINE PIE MAKER-BARTENDER DEXA ORDERABLES * XR LOWER EXTREM JNTS STANDING (05/23/2011 12:48 PM CDT) Anatomical Region Laterality Modality Radiographic Radha ging 05/23/2011 1:17 PM CDT Impressions 05/23/2011 2:14 PM CDT Postsurgical changes. Limb length discrepancy primarily due to short right tibia. D: Jermain Crocker M.D. Narrative 05/23/2011 2:14 PM CDT Bilateral lower extremities standing, AP. Right femoral length: ??42.1 cm Right tibial length: ?? 28.7 cm Total right limb length: ??70.8 cm Left femoral length: ?? 42.7 cm Left tibial length: ?? 33.8 cm Total left limb length: ??76.5 cm Limb length discrepancy: The left lower extremity is 5.7 cm longer than the left. The limb length disparity is primarily due to increased left tibial length. The left iliac crest is 4.1 cm higher than the right. The prior exam dated 07/13/2009 was performed with a 5.5 cm block under the right foot. The distal right femoral femoral resection and expandable hardware is noted. This was previously described on the prior exam of 04/01/2011. Procedure Note Elisabeth Rodrigues MD - 05/23/2011 Bilateral lower extremities standing, AP. Right femoral length: 42.1 cm Right tibial length: 28.7 cm Total right limb length: 70.8 cm Left femoral length: 42.7 cm Left tibial length: 33.8 cm Total left limb length: 76.5 cm Limb length discrepancy: The left lower extremity is 5.7 cm longer than the left. The limb length disparity is primarily due to increased left tibial length. The left iliac crest is 4.1 cm higher than the right. The prior exam dated 07/13/2009 was performed with a 5.5 cm block under the right foot. The distal right femoral femoral resection and expandable hardware is noted. This was previously described on the prior exam of 04/01/2011. IMPRESSION Postsurgical changes. Limb length discrepancy primarily due to short right tibia. D: Jermain Crocker M.D. Wilmer Pollard MD DIAGNOSTIC IMAGING O RDERABLES * PATHOLOGY/CYTOLOGY REPORT ORDER (03/21/2011 10:29 AM CDT) Narrative Procedure Note Document, Scanned - 03/20/2011 4:53 PM CDT Scanned Document LAB - PATHOLOGY/CYTO LOGY ORDERABLES * GROSS EXAM PATHOLOGY (03/18/2011 1:30 PM CDT) [facility] Clinical History [facility] Comment: The patient is a 15-year-old girl with chronic tonsillitis and adenoiditis. Gross Description [facility] Comment: Submitted fresh in one container for gross examination only labeled with the patient's name, Georgina Bishop, and tonsils are two egg-shaped, pink-beverly, palatine tonsils measuring 2.7 x 1.7 x 1.5 cm and 2.7 x 1.7 x 1.5 cm weighing approximately 10 g combined. ??On cut surface, the tonsils have a cerebriform, yellow-beverly appearance. ?? Sulfur granules are identified in one tonsil. ??No sections are taken. ??(CT/ld) Gross Diagnosis [facility] Comment: GROSS DIAGNOSIS: ??PALATINE TONSILS. This case has been personally reviewed and interpreted by the attending (teaching) pathologist. Retail Manager In Training TERESO DECKER [facility] Pathologist Zulema Gutierrez M.D. [facility] Electronically Signed By ZULEMA GUTIERREZ M.D . [facility] SPECIMEN FROM TONSIL / Unknown 03/18/2011 1:30 PM CDT 03/18/2011 2:12 PM CDT Pepito Vicente MD LAB - PATHOLOGY/CYTO LOGY ORDERABLES Performing Organization Address City/State/[facility] Co de Phone Number [facility] [address] [place] [address] * GROSS + MICRO EXAM (07/22/2010 3:45 PM CDT) Only the most recent of5 resultswithin the time period is included. [facility] Clinical History [facility] Comment: The patient is a 14-year-old girl with cholecystitis who underwent laparoscopic cholecystectomy. ?? Gross Description [facility] Comment: Submitted fixed in formalin in one container for gross and microscopic examination, labeled with the patient's name, ??Georgina Bishop and gallbladder, is a 6.3 x 2.3 x 2 cm intact gallbladder with stapled cystic duct. ??The serosal surface is glistening purple-beverly. ??The gallbladder contains dark green viscid bile and four yellow choleliths ranging in size from 0.3 to 0.6 cm in greatest dimension. ??The gallbladder thickness is 0.2 cm. ??The mucosal surface has a dark green mossy appearance. ??It Technical Architect sections from the gallbladder and cystic duct are submitted in cassette A1. ??(CT/nab) Microscopic Examination [facility] Comment: 1 H+E, 4 additional deeper sections. Sections show a gallbladder with features of chronic cholecystitis. Scattered chronic inflammatory cells are seen within the lamina propria and muscularis propria. ??Additional deeper levels of tissue show similar histological features. ??(CSA/GN/lw/ld) Diagnosis [facility] Comment: DIAGNOSIS: ??GALLBLADDER, CHOLECYSTECTOMY: ?-CHRONIC CHOLECYSTITIS. ?-CHOLELITHIASIS. This case has been personally reviewed and interpreted by the attending (teaching) pathologist. Retail Manager In Training KYLAH DUMONT, [facility] Resident in Pathology Dianne Ingram M.D. [facility] Pathologist Blake hinojosa M.D. [facility] Electronically Signed By Blake hinojosa M.D. [facility] ENTIRE GALLBLADDER / Unknown 07/22/2010 3:45 PM CDT 07/23/2010 9:03 AM CDT Nic Whitman MD LAB - PATHOLOGY/CYTO LOGY ORDERABLES [facility] [address] [place] [address] * US ABDOMEN LIMITED (07/20/2010 12:28 AM CDT) Anatomical Region Laterality Modality Abdomen Ultrasound 07/20/2010 11:5 4 AM CDT Impressions 07/20/2010 11:54 AM CDT Cholelithiasis. No cholecystitis. No biliary ductal dilatation. Narrative 07/20/2010 11:54 AM CDT Ultrasound abdomen limited July 21, 2010 The gallbladder demonstrates multiple echogenic shadowing foci consistent with gallstones. Gallbladder wall is of normal thickness. There is no pericholecystic fluid. Common bile duct and biliary ducts of the liver are of normal caliber. Procedure Note Rayray Lebron MD - 07/20/2010 Ultrasound abdomen limited July 21, 2010 The gallbladder demonstrates multiple echogenic shadowing foci consistent with gallstones. Gallbladder wall is of normal thickness. There is no pericholecystic fluid. Common bile duct and biliary ducts of the liver are of normal caliber. IMPRESSION Cholelithiasis. No cholecystitis. No biliary ductal dilatation. Aalap Shepherd DO US ORDERABLES * XR ABD OBSTR SERIES (07/19/2010 11:01 PM CDT) Anatomical Region Laterality Modality Abdomen Radiographic Radha ging 07/20/2010 11:1 6 AM CDT Impressions 07/20/2010 6:00 PM CDT Unremarkable bowel gas pattern. D: Luciano Doe M.D. Narrative 07/20/2010 6:00 PM CDT Exam: Abdominal obstruction series, supine and upright views Date: 07/19/2010 Findings: Air is present in the small bowel and colon. The bowel gas pattern is unremarkable. No evidence of focal obstruction, free air, or pneumatosis is present. No osseous deformities or pathologic calcifications are identified. Procedure Note Rayray Lebron MD - 07/20/2010 Exam: Abdominal obstruction series, supine and upright views Date: 07/19/2010 Findings: Air is present in the small bowel and colon. The bowel gas pattern is unremarkable. No evidence of focal obstruction, free air, or pneumatosis is present. No osseous deformities or pathologic calcifications are identified. IMPRESSION Unremarkable bowel gas pattern. D: Luciano Doe M.D. Aalap Shepherd DO DIAGNOSTIC IMAGING O RDERABLES * LIPASE BLOOD (07/19/2010 6:25 PM CDT) Lipase 57 23 - 300 Units/L [facility] BLOOD SPECIMEN / Unknown 07/19/2010 6:25 PM CDT 07/19/2010 6:31 PM CDT Nikita Brewster MD LAB - CHEMISTRY ORD ERABLES Performing Organization Address City/[facility] Co de Phone Number [facility] [address] [place] [phone] * AMYLASE BLOOD (07/19/2010 6:25 PM CDT) Amylase 46 30 - 100 Units/L [facility] BLOOD SPECIMEN / Unknown 07/19/2010 6:25 PM CDT 07/19/2010 6:31 PM CDT Nikita Brewster MD LAB - CHEMISTRY ORD ERABLES Performing Organization Address City/[facility] Co de Phone Number [facility] [address] [place] [phone] * (ABNORMAL) URINALYSIS ROUTINE AUTO (07/19/2010 6:00 PM CDT) Color UA YELLOW [facility] Character UA CLOUDY [facility] Specific [place] UA >=1.030 1.003 - 1.030 [facility] pH UA 6.0 5.0 - 8.0 [facility] Protein UA TRACE Negative [facility] Glucose UA NEGATIVE Negative gm/dl [facility] Ketone UA 3+(AA) Negative [facility] Blood UA NEGATIVE Negative [facility] Bilirubin UA 2+ Negative [facility] Reducing Substances UA NEGATIVE Negative % [facility] WBC UA 0-5 /HPF [facility] Epithelial Cell UA 15-20 /HPF [facility] Bacteria UA Trace [facility] Leukocyte UA NEGATIVE [facility] Nitrite UA NEGATIVE [facility] Urobilinogen UA 0.2 <=1.0 EU/dl [facility] URINE SPECIMEN OBTAINED BY CLEAN CATCH PROCEDURE / Unknown 07/19/2010 6:00 PM CDT 07/19/2010 6:19 PM CDT Nikita Brewster MD LAB - URINALYSIS OR DERABLES Performing Organization Address City/State/[facility] Co de Phone Number [facility] [address] [place] [address] Care Teams Water Manager Relationship Specialty Start Date End Date Lilly Pina APRN-GABBY [facility] [place] [address] PCP - General Nurse Practitioner 06/13/22
--- OUTSIDE RECORDS SUMMARY | 2024-12-22 15:24 | XMS_ITS | Clinical Summary ---
Author Organization [facility] Address [address] [place] [address] Care Team Providers Care International Operations Manager Name Role Phone Lilly Pina SOFTWARE QA MANAGER Unavailable [phone] Lilly Pina SOFTWARE QA MANAGER Unavailable [phone] Edwardo Jane Primary Care Provider [phone] Allergies Active Allergy Reactions Criticality Noted Date Comments Ceftazidime Hives,Rash,Urticaria Medium 07/19/2010 Reaction: RASH Hives Clindamycin Other (See comments) Low 11/30/2015 Facial flushing Codeine Palpitations Reaction: RAPID HEART RATE, Medications Entresto 24-26 mg tablet 08/05/20 22 Active omeprazole (PriLOSEC) 20 mg capsule Active ergocalciferol (VITAMIN D) 50,000 unit capsule ergocalciferol (vitamin D2) 1,250 mcg (50,000 unit) capsule Active diazePAM (VALIUM) 5 mg tablet diazepam 5 mg tablet Active carvediloL (COREG) 3.125 mg tablet 08/05/20 22 Active traMADoL (ULTRAM) 50 mg tabletIndication s:History of osteosarcoma Take 1 tablet (50 mg total) by mouth every 8 (eight) hours as needed for pain 40 tablet 03/09/20 23 Active gabapentin (NEURONTIN) 300 mg capsule Take 1 capsule (300 mg total) by mouth 3 (three) times a day 180 capsule 3 03/09/20 23 Active Active Problems Problem Noted Date Diagnosed Date [...] (congestive) heart failure 05/2022 Congestive heart failure ([facility]) 12/19/2021 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 05/09/2019 Other cardiomyopathies 05/09/2019 Cardiomyopathy 06/23/2018 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, 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[facility]) 06/10 Injury, other and unspecified, knee, leg, ankle, and foot 04/01/2011 Chronic tonsillitis and adenoiditis 03/18/2011 Overview (08/28/2022): Immunizations Name Administration Dates Next Due DTaP 01/27/2000, 5,03/06/1994,12/06,1993 Hep B, Adolescent or Pediatric 08/18/2003,1992,1993 HiB 01/08/1995, 4,1993,09/30 IPV 01/27/2000, 4,1993,09/30 Influenza, Quadrivalent, Rec ombinant, Egg Free, Preservative Free, Intramuscular 11/04/2021 Influenza, Quadrivalent, Spl it, Intramuscular 10/15/2021 Influenza, Unspecified 04/23/2023(Deferred: Kassi ent Refused) MMR 12/15/2021,01/27/2000,10/09/1994 Meningococcal MCV4P (Menactra) 07/14/2016 Pneumococcal Conjugate Pcv20 05/15/2023(Deferred : Patient Refused) Tdap 11/07/2021,07/14/2016,08/11/2007 Surgical History Surgery Date Site/Laterality Comments TOTAL KNEE ARTHROPLASTY CHOLECYSTECTOMY SECTION TONSILECTOMY, ADENOIDECTOMY, BILATERAL MYRINGOTOMY AND TUBES Medical History Medical History Date Comments Cardiomyopathy (HCC) CHF (congestive heart failure) (CMS/HCC) (HCC) Family History Medical History Relation Name Comments Hip fracture Neg Hx Osteoporosis Neg Hx Social History Tobacco Use Types Packs/Day Years Used Date Smoking Tobacco: Never Tobacco Cessation:Counseling Given: Not Answered Alcohol Use Standard Drinks/Week Comments Not Currently 0 (1 standard drink = 0.6 oz pur e alcohol) Comments Unknown Sex and Gender Information Value Date Recorded Sex Assigned at Not on file Legal Sex Female 2:13 AM BANANA GRADER Gender Identity Not on file Sexual Orientation Not on file Obstetrics History Last Filed Vital Signs Vital Sign Reading Time Taken Comments Blood Pressure 95/54 12/19/2022 1:00 AM BANANA GRADER Pulse 108 03/09/2023 2:57 PM CDT Temperature 37.6 ??C (99.6 ??F) 12/18/2022 5:23 PM CS T Respiratory Rate 18 03/09/2023 2:57 PM CDT Oxygen Saturation 96% 03/09/2023 2:57 PM CDT Inhaled Oxygen Concentration - - Weight 79.8 kg (176 lb) 03/09/2023 2:57 PM CDT Height 160 cm (5' 3 ) 03/09/2023 2:57 PM CDT Body Mass Index 31.18 03/09/2023 2:57 PM CDT Plan of Treatment Health Maintenance Due Date Last Done Comments Cervical Cancer Screening 1993 Depression Screening 1993 Hepatitis C Screening 1993 Pneumococcal vaccine <65 (1 of 2 - PCV) 1999 Varicella Vaccines (1 of 2 - 13+ 2-dose series) 2006 Regular Well Visit/Exam 18-64 2011 Covid-19 Vaccine ( season) 2024 05/14/2022, 03/04/2021, 02/08/2021 Influenza Vaccine (#1) 2024 11/04/2021, 2020 DTaP/Tdap/Td Vaccine (9 - Td or Tdap) 11/07/2031 11/07/2021, 07/14/2016, 08/11/2007, Additional history exists HPV Vaccines Aged Out No longer eligi ble based on patient's age to complete this topic Insurance [facility] Address: [address] [address] [place] [address] [facility] Address: [address] [address] [place] [address] Care Teams International Operations Manager Relationship Specialty Start Date End Date Edwardo Jane PA [address] [place] [address] PCP - General Family Medicine 12/26/22 Lilly Pina NP Nurse Practitioner 04/18/22 Lilly Pina NP Nurse Practitioner 12/20/21
--- OUTSIDE RECORDS SUMMARY | 2024-12-22 15:24 | XMS_ITS | Referral Summary ---
Author Organization [facility] [employer] Address [address] [place] [address] Care Team Providers Care Gas Regulator Repairer Helper Name Role Phone Lilly Pina GERMÁN-MOBILE HEAVY EQUIPMENT OPERATOR Primary Care Provider + Source Comments [facility],non-owned Affiliates and Associated Physician Practices is amultiple site organization consisting of ambulatory clinics and hospital sitesin [place], [place], [place] and [place]. This disclosure is being madepursuant to the Care Everywhere program and may not contain all information available regarding this patient. Last updated 18.[facility] Allergies Active Allergy Reactions Criticality Noted Date [...] dilated cardiomyopathy 06/10/2013 06/10/2013 Dilated cardiomyopathy lee albarrany to malignancy 06/10/2013 06/10/2013 425.9 03/07/2011 06/10/2013 [...] Comments Blood Pressure 118/76 01/08/2024 1:29 PM CLINIC MD ASSOCIATE Pulse 112 01/08/2024 1:29 PM CLINIC MD ASSOCIATE Temperature 36.3 ??C (97.4 ??F) 01/08/2024 1:29 PM CS T Respiratory Rate 16 01/08/2024 1:29 PM CLINIC MD ASSOCIATE Oxygen Saturation 98% 01/08/2024 1:29 PM CLINIC MD ASSOCIATE Inhaled Oxygen Concentration - - Weight 76.1 kg (167 lb 12.3 oz) 01/08/2024 1:29 PM CLINIC MD ASSOCIATE Height 157 cm (5' 1.81 ) 01/08/2024 1:29 PM CLINIC MD ASSOCIATE Body Mass Index 30.87 01/08/2024 1:29 PM CLINIC MD ASSOCIATE Functional Status Functional Status Response Date of Assess ment Is person deaf or have serious hearing difficult y? No 11/26/2015 Is person blind or have serious difficulty seein g? No 11/26/2015 Does person have serious dif ficulty walking/climbing stairs? Yes 11/26/2015 Does person have difficulty dressing/bathing? No 11/26/2015 Does person have difficulty doing errands alone? No 11/26/2015 Cognitive Status Response Date of Assessm ent Does person have difficulty concentrating/remembering/making decisions? No 11/26/2015 Plan of Treatment Not on file Medical Devices Implanted Type Area Joint Creaser Device Identifier Shelf Expiration Date Model / Serial / Lot Melecio Bone Palacos R Implanted:Qty: 2 on 11/26/2015 by Wilmer Pollard MD at [facility] Right: Knee [employer] 06/29/2020 [id number] / / [id number] Distal Femur Axial Pin Implanted:Qty: 1 on 11/26/2015 by Wilmer Pollard MD at [facility] Right: Knee Digital [employer] 03/30/2022 [id number] / / [id number] Mid Section, Size 40mm Implanted:Qty: 1 on 11/26/2015 by Wilmer Pollard MD at [facility] Right: Knee Microport 11/30/2022 [id number] / / [id number] Canal Filling Stem Extension 11mm X 140mm Implanted:Qty: 1 on 11/26/2015 by Wilmer Pollard MD at [facility] Right: Knee [employer] 04/28/2022 [id number] / / [id number] Guardian Tibial Sleeve W/Plugs, Sz 1 Implanted:Qty: 1 on 11/26/2015 by Wilmer Pollard MD at [facility] Right: Knee [employer] 07/29/2022 [id number] / / [id number] Repiphysis To Guardian Taper Adapter + Two Pins Implanted:Qty: 1 on 11/26/2015 by Wilmer Pollard MD at [facility] Right: Knee [employer] 11/29/2015 [id number] / / [id number] Advanced Onlay All-Poly Patella 32mm Tri-Peg Thickness 8mm Implanted:Qty: 1 on 11/26/2015 by Wilmer Pollard MD at [facility] Right: Knee Digital [employer] 08/29/2023 [id number] / / [id number] Guardian Distal Femoral Right Implanted:Qty: 1 on 11/26/2015 by Wilmer Pollard MD at [facility] Right: Knee Digital [employer] 04/28/2022 [id number] / / [id number] Guardian Med-Section Size 60mm Implanted:Qty: 1 on 11/26/2015 by Wilmer Pollard MD at [facility] Right: Knee [employer] 11/28/2018 [id number] / / [id number] Tibial Hinge Base With Rotational Stop Pin Implanted:Qty: 1 on 11/26/2015 by Wilmer Pollard MD at [facility] Right: Knee [employer] 04/30/2023 [id number] / / [id number] Tibial Poly Spacer, Size 8mm Implanted:Qty: 1 on 11/26/2015 by Wilmer Pollard MD at [facility] Right: Knee [employer] 01/28/2022 [id number] / / [id number] Explanted Type Area Joint Creaser Device Identifier Shelf Expiration Date Model / Serial / Lot Guidewire 3.0 X 98cm Explanted:Qty: 1 on 11/26/2015 at [facility] Right: Knee [employer] 01/28/2025 [id number] / / [id number] Procedures Procedure Name Priority Date/Time Associated Diagnosis Comments HIV-1 HIV-2 ANTIGEN/ANTIBODY STAT 10/03/2020 3:39 PM CLINIC MD ASSOCIATE from Last 3 Months or Most Recently Relevant to Health Maintenance Results * HIV-1 HIV-2 ANTIGEN/ANTIBODY (10/03/2020 3:39 PM CLINIC MD ASSOCIATE) HIV Antigen/Antibod y 1 & 2 Non-reacti ve Non-react marialuisa 10/03/2020 4:28 PM CLINIC MD ASSOCIATE [facility] Comment:Neither HIV-1 p24 An tigen nor HIV-1/HIV-2 Antibodies are detected. Blood BLOOD SPECIMEN / Unknown Venipuncture / Unknown 10/03/2020 3:39 PM CLINIC MD ASSOCIATE 10/03/2020 3:56 PM CLINIC MD ASSOCIATE Clif Pulido MD LAB - HEMATOLOGY ORDERABLES [facility] [address] [place] [address], [facility] [phone] from Last 3 Months or Most Recently Relevant to Health Maintenance Administered Medications Additional Health Concerns Infection Onset Date Last Indicated MRSA 11/27/2015 11/27/2015 Advance Directives * Full Code (Latest Code Status on File) Date Activated Date Inactivated Comments 11/26/2015 9:33 PM 12/01/2015 1:24 PM Care Teams Gas Regulator Repairer Helper Relationship Specialty Start Date End Date Lilly Pina APRN-GABBY [address] [place] [address] [address] [place] [address] PCP - General Nurse Practitioner 06/13/22
--- OUTSIDE RECORDS SUMMARY | 2024-12-22 15:24 | XMS_ITS | Referral Summary ---
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 05/09/2019 Other cardiomyopathies 05/09/2019 Cardiomyopathy 06/23/2018 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, 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[facility]) 06/10 Injury, other and unspecified, knee, [...] Pcv20 05/15/2023(Deferred : Patient Refused) Tdap 11/07/2021,07/14/2016,08/11/2007 Social History Tobacco Use Types Packs/Day Years Used Date Smoking Tobacco: Never Tobacco Cessation:Counseling Given: Not Answered Alcohol Use Standard Drinks/Week Comments Not Currently 0 (1 standard drink = 0.6 oz pur e alcohol) Comments Unknown Sex and Gender Information Value Date Recorded Sex Assigned at Not on file Legal Sex Female 2:13 AM EDUCATIONAL/DEVELOPMENT ASSISTANT Gender Identity Not on file Sexual Orientation Not on file Last Filed Vital Signs Vital Sign Reading Time Taken Comments Blood Pressure 95/54 12/19/2022 1:00 AM EDUCATIONAL/DEVELOPMENT ASSISTANT Pulse 108 03/09/2023 2:57 PM CDT Temperature [...] 03/09/2023 2:57 PM CDT Plan of Treatment Not on file Insurance [facility] [address] [facility]PPO Address: [place] [address] [facility] H[facility]/PPO Address: [address] [place] [address] Care Teams Cell Lead Relationship Specialty Start Date End Date Edwardo Jane PA [address] [address] PCP - General Family Medicine 12/26/22 Lilly Pina NP Nurse Practitioner 04/18/22 Lilly Pina NP Nurse Practitioner 12/20/21
== END 2024-12-20 08:57 ==
LOC: ASC 06:43
PROVIDERS: PCP Nurse Practitioner Adult Health; Visit Provider Anesthesiology Pain Medicine
PROC: (CPT 62323; principal; 2024-12-20 07:30)
DX: M47.817 Spondylosis without myelopathy or radiculopathy, lumbosacral region (principal); M54.51 Vertebrogenic low back pain; M25.561 Pain in right knee; M46.1 Sacroiliitis, not elsewhere classified; G89.29 Other chronic pain; Z85.830 Personal history of malignant neoplasm of bone
CPT/HCPCS: 62323; 99199

== ENCOUNTER 2025-02-14 06:39 | Day surgery (SDC) | payer MEDICARE, MEDICAID, SELFPAY ==
[2025-02-10 11:29] VITALS: BMI 31.8
[2025-02-14] VITALS (8 sets, daily range): BP systolic 96–146; BP diastolic 59–92; PULSE 94–128; RESP 18–22; TEMP 36.6; O2SAT 96–100; BMI 33.0
--- NOTE | ~2025-02-14 | XR_ITS ---
XR fluoroscopy no charge Indication: Epidural opioid bolus pain pump trial TECHNIQUE: Fluoroscopy used during Epidural opioid bolus pain pump trial performed by [Yuri Aguilar MD] on 02/14/2025. 20 seconds of fluoroscopy with 10 fluoroscopic images captured. FINDINGS: Correlate with procedure note. IMPRESSION: Fluoroscopy used during Epidural opioid bolus pain pump trial. Reviewed, dictated and finalized at location B.
--- OUTSIDE RECORDS SUMMARY | 2025-02-14 07:21 | XMS_ITS | Referral Summary ---
Author Organization [facility] Address [address] [place] [address] Care Team Providers Care Buhr Dresser Name Role Phone Lilly Pina RESET MERCHANDISER Unavailable [phone] Lilly Pina RESET MERCHANDISER Unavailable [phone] Edwardo Jane Primary Care Provider [phone] Encounters Date Type Department Care Team Description 01/12/2025 Orders Only [facility] Orthopaedic Surgery [address] [facility] [address] [place] [address] [place] [address] Gerard Kumar MD Osteosarcoma of femur, right (HCC) (Primary Dx) from Last 3 Months Allergies Active Allergy Reactions Criticality Noted Date [...] (congestive) heart failure 05/2022 Congestive heart failure 12/19/2021 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 05/09/2019 Other cardiomyopathies 05/09/2019 Cardiomyopathy 06/23/2018 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, 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 Injury, other and unspecified, knee, leg, ankle, and foot 04/01/2011 Chronic tonsillitis and adenoiditis 03/18/2011 Overview (08/28/2022): Immunizations Immunization Administration Dates Next Due DTaP 01/27/2000, 5,03/06/1994,12/06,1993 [...] on file Legal Sex Female 2:13 AM COUNSELOR MARRIAGE AND FAMILY Gender Identity Not on file Sexual Orientation Not on file Last Filed Vital Signs Vital Sign Reading Time Taken Comments Blood Pressure 95/54 12/19/2022 1:00 AM COUNSELOR MARRIAGE AND FAMILY Pulse 108 03/09/2023 2:57 PM CDT Temperature 37.6 C (99.6 F) 12/18/2022 5:23 PM COUNSELOR MARRIAGE AND FAMILY Respiratory Rate 18 03/09/2023 2:57 PM CDT Oxygen Saturation 96% 03/09/2023 2:57 PM CDT Inhaled Oxygen Concentration - - Weight 79.8 kg (176 lb) 03/09/2023 2:57 PM CDT Height 160 cm (5' 3 ) 03/09/2023 2:57 PM CDT Body Mass Index 31.18 03/09/2023 2:57 PM CDT Plan of Treatment Not on file Insurance [address] [place] [address] [facility]/PPO Address[address] [place] [id number] [facility] H[facility]/PPO Address: [address] [address] [place] [address] Care Teams Buhr Dresser Relationship Specialty Start Date End Date Edwardo Jane PA [address] [address] PCP - General Family Medicine 12/26/22 Lilly Pina NP Nurse Practitioner 04/18/22 Lilly Pina NP Nurse Practitioner 12/20/21
--- OUTSIDE RECORDS SUMMARY | 2025-02-14 07:21 | XMS_ITS | CONTINUITY OF CARE DOCUMENT ---
Author Name alpesh betts Address Unknown Organization [facility] Address [address] [place] [address] Phone [phone] Care Team Providers Care Trial Lawyer Name Role Phone Matthias PATIÑO, Clif Unavailable Yovani READING INTERVENTIONIST, Lilly Unavailable [phone] Yovani READING INTERVENTIONIST, Lilly Unavailable [phone] PROBLEMS Condition Status Date Provider Notes Cardiovascular screening completed - Maulik Blackman MD Cardiomyopathy- Echo 12/05 EF 30%, EF 45% 12/2021, EF 45% 10/2022, EF 45% 10/2023 active Clif Rizzo MD 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 Maulik Blackman MD CHF, post- active Clif Rizzo MD Family history of CAD active Clif Rizzo MD Preoperative cardiovascular examination completed - Clif Rizzo MD ENCOUNTERS Date Type Provider Location Encounter Diag nosis - In-person encounter Office Visit Clif Rizzo MD [facility] - In-person encounter Office Visit Clif Rizzo MD [facility] Preoperative cardiovascular examination - In-person encounter Office Visit Clif Rizzo MD [facility] Cardiomyopathy- Echo 12/05 EF 30%, EF 45% 12/2021, EF 45% 10/2022, EF 45% 10/2023 - In-person encounter Office Visit Clif Rizzo MD [facility] Cardiomyopathy- Echo 12/05 EF 30%, EF 45% 12/2021, EF 45% 10/2022, EF 45% 10/2023 - In-person encounter Office Visit Clif Rizzo MD [facility] - In-person encounter Office Visit Clif Rizzo MD [facility] - In-person encounter Office Visit Clif Rizzo MD [facility] - In-person encounter Office Visit Clif Rizzo MD [facility] Cardiomyopathy- Echo 12/05 EF 30%, EF 45% 12/2021, EF 45% 10/2022, EF 45% 10/2023 - In-person encounter Office Visit Clif Rizzo MD [facility] CHF, post-partumFamily history of CAD - In-person encounter Office Visit Maulik Blackman MD [facility] Cardiomyopathy- Echo 12/05 EF 30%, EF 45% 12/2021, EF 45% 10/2022, EF 45% 10/2023 - In-person encounter Office Visit Maulik Blackman MD [facility] Cardiovascular screeningCardiomyopath y- Echo 12/05 EF 30%, EF 45% 12/2021, EF 45% 10/2022, EF 45% 10/2023Osteosarcoma of lower limb at age 9 s/p surgery and chemo [anthroacycline] VITAL SIGNS Date Observation Value Provider Body Mass Index (Ratio) 33.30 kg/m2 Jammie Rizzo MD blood pressure, diastolic 79 mm[Hg] Jennie Rodriguez blood pressure, systolic 113 mm[Hg] Merly Rodriguez oxygen saturation, oximetry 97 % Zaira Rodriguez pulse rate 103 /min Zaira Rodriguez respiratory rate E&M 12 /min Zaira Rodriguez weight E&M 188 [lb_av] Zaira Rodriguez height E&M 63 [in_i] Zaira Rodriguez blood pressure, cuff size regular An boyd Rodriguez Body Mass Index (Ratio) 31.53 kg/m2 Jammie Rizzo MD blood pressure, diastolic -1 mm[Hg] Madelyn nkLogjackson blood pressure, systolic 97 mm[Hg] Belen kLog blood pressure, diastolic 63 mm[Hg] Ja rret blood pressure, systolic 97 mm[Hg] Jar ret pulse rate 93 /min Yandel y blood pressure, cuff size regular Ja rret oxygen saturation, oximetry 97 % Yandel respiratory rate E&M 14 /min Yandel weight E&M 178 [lb_av] Yandel height E&M 63 [in_i] Yandel y Body Mass Index (Ratio) 30.64 kg/m2 Rubi Braysusi blood pressure, cuff size regular Ja rret blood pressure, diastolic 74 mm[Hg] Ja rret blood pressure, systolic 105 mm[Hg] Jar ret pulse rate 96 /min Yandel y respiratory rate E&M 12 /min Yandel oxygen saturation, oximetry 98 % Yandel weight E&M 173 [lb_av] Yandel erda y height E&M 63 [in_i] Yandel er y Body Mass Index (Ratio) 30.64 kg/m2 Jammie Rizzo MD pulse rate 95 /min Clif Rizzo MD blood pressure, cuff size regular Alfonso rret blood pressure, diastolic 73 mm[Hg] Ja rret blood pressure, systolic 113 mm[Hg] Jar ret oxygen saturation, oximetry 97 % Yandel respiratory rate E&M 12 /min Yandel weight E&M 173 [lb_av] Yandel y height E&M 63 [in_i] Yandel y Body Mass Index (Ratio) 31.17 kg/m2 Jammie Rizzo MD blood pressure, diastolic -1 mm[Hg] Madelyn nkLogic blood pressure, systolic 102 mm[Hg] Belen kLogic blood pressure, diastolic 78 mm[Hg] St ephanie [place] blood pressure, systolic 102 mm[Hg] Diony phanie [place] oxygen saturation, oximetry 97 % Cecy [place] pulse rate 110 /min Cecy Owenma n blood pressure, cuff size regular St ephanie [place] respiratory rate E&M 16 /min Ck ie [place] weight E&M 176 [lb_av] Cecy Lohma n height E&M 63 [in_i] Cecy Lohma n Body Mass Index (Ratio) 30.82 kg/m2 Zev [place] blood pressure, cuff size regular Ri quinten Phillips blood pressure, diastolic 171 mm[Hg] Ri quinten Alan blood pressure, systolic 108 mm[Hg] Guicho zehra Phillips oxygen saturation, oximetry 98 % Deborah Phillips respiratory rate E&M 16 /min Kerri Phillips pulse rate 97 /min Deborah Lowe son weight E&M 174 [lb_av] Deborah Lowe son height E&M 63 [in_i] Deborah dalal Body Mass Index (Ratio) 30.11 kg/m2 Jammie Rizzo MD blood pressure, cuff size large Nelia shipley [place] blood pressure, diastolic 98 mm[Hg] Mi quinten [place] blood pressure, systolic 112 mm[Hg] David helle [place] oxygen saturation, oximetry 100 % Leo respiratory rate E&M 16 /min Vanna Leo pulse rate 90 /min Michelle zhang weight E&M 170 [lb_av] Michelle zhang height E&M 63 [in_i] Michelle zhang Body Mass Index (Ratio) 28.69 kg/m2 Jammie Rizzo MD blood pressure, cuff size large Nelia shipley [place] blood pressure, diastolic 60 mm[Hg] Mi quinten [place] blood pressure, systolic 118 mm[Hg] David helle [place] oxygen saturation, oximetry 99 % Leo respiratory rate E&M 18 /min Vanna Leo pulse rate 85 /min Clif Rizzo MD weight E&M 162 [lb_av] Michelle zhang height E&M 63 [in_i] Michelle Damon d Body Mass Index (Ratio) 28.16 kg/m2 Jammie Rizzo MD blood pressure, diastolic -1 mm[Hg] Madelyn nkLogic blood pressure, systolic 111 mm[Hg] Belen kLogic blood pressure, diastolic 69 mm[Hg] Sa ra Kwan blood pressure, systolic 111 mm[Hg] Gianni a Kwan oxygen saturation, oximetry 98 % Yamila Kwan respiratory rate E&M 21 /min Yamila Si ms pulse rate 87 /min Yamila Kwan blood pressure, cuff size regular Sa ra Kwan weight E&M 159 [lb_av] Yamila Kwan height E&M 63 [in_i] Yamila [place] Body Mass Index (Ratio) 24.97 kg/m2 Owen Blackamn MD blood pressure, diastolic 70 mm[Hg] [facility], [facility] 118 mm[Hg] Kil matthieu [place] oxygen saturation, oximetry 99 % [facility] respiratory rate E&M 16 /min [facility] pulse rate 86 /min [facility] weight E&M 141 [lb_av] [facility] height E&M 63 [in_i] [facility] Body Mass Index (Ratio) 25.51 kg/m2 Owen Blackman MD blood pressure, cuff size regular Cr kaylee Higginbotham blood pressure, diastolic 60 mm[Hg] Cr kaylee Higginbotham blood pressure, systolic 110 mm[Hg] Cry stal Ne[place]aly oxygen saturation, oximetry 99 % Alecia Higginbotham respiratory rate E&M 17 /min Alecia Higginbotham pulse rate 100 /min Alecia lopez blood pressure, resting No Nisa abby Higginbotham weight E&M 144 [lb_av] Alecia lopez height E&M 63 [in_i] Alecia lopez ALLERGIES Allergy Name Onset Date Reaction Criticality Status CODEINE High Criticality active CEFTAZIDINE High Criticality active RESULTS Date Observation Value Provider Reference Range Interpretation Location pro brain natriuretic peptide 937 pg/mL [facility] 0-130 High calcium, serum 9.6 mg/dL [facility] 8.7-10.2 carbon dioxide, venous blood 26 mmol/L [facility] 20-29 chloride, serum 99 mmol/L [facility] 96-106 potassium, serum 4.2 mmol/L [facility] 3.5-5.2 sodium, serum 140 mmol/L [facility] 222-033 9955/03/12 urea nitrogen/creatini ne ratio, serum 25 [facility] 9-23 High creatinine, serum 0.59 mg/dL [facility] 0.57-1.00 urea nitrogen, blood 15 mg/dL [facility] 6-20 blood glucose, random 89 mg/dL [facility] 65-99 HISTORY OF MEDICATION USE Medication Status Instructions Dates Provider Indications Com ments Entresto 24-26 mg tablet active TAKE 1 TABLET BY MOUTH TWICE A DAY Eli Campos carvedilol 12.5 mg tablet active Take 1 tablet by mouth twice a day Roberta Burt Entresto 24-26 mg tablet completed Take 1 tablet by mouth twice daily - Eli Campos Entresto 24-26 mg tablet completed Take 1 tablet by mouth twice a day - Roberta Burt Entresto 24-26 mg tablet completed - Clif Rizzo MD carvedilol 12.5 mg tablet completed TAKE 1 TABLET BY MOUTH EVERY 12 HOURS - Roberta Burt oxycodone-sujit taminophen 10-325 mg tablet active Take 1 tablet by mouth every six hours as needed Clif Rizzo MD #[id number], 11 days supply, Prescribed by DICKSON SUNSHINE, Filled 04/28/2019 enalapril maleate 20 mg tablet completed 1 tablet once a day - Maulik Blackman MD #180, 90 days supply, Prescribed by KENDRICK BRIGHT, Filled 04/28/2019 SOCIAL HISTORY Date Observation Value Provider smoking status Never smoker Clif goff MD smoking status Never smoker Clif goff MD social history E&M S moking History: P lorie has never smoked. Clif Rizzo MD smoking status Never smoker Clif goff MD social history reviewed E&M revi ewed - no changes required Clif Rizzo MD social history E&M S moking History: P lorie has never smoked. Clif Rizzo MD social history reviewed E&M revi ewed - no changes required Clif Rizzo MD smoking status Never smoker Cecy buckner social history E&M S moking History: P lorie has never smoked. Clif Rizzo MD social history reviewed E&M revi ewed - no changes required Clif Rizzo MD smoking status Never smoker Deborah johnson social history E&M S moking History: P lorie has never smoked. Clif Rizzo MD social history reviewed E&M revi ewed - no changes required Clif Rizzo MD smoking status Never smoker Michelle Napier and social history E&M S moking History: P lorie has never smoked. Clif Rizzo MD social history reviewed E&M revi ewed - no changes required Clif Rizzo MD smoking status Never smoker Michelle Napier and number of grandchildren Clif Rizzo MD social history E&M S moking History: P lorie has never smoked. Clif Rizzo MD smoking status Never smoker Clif goff MD social history reviewed E&M revi ewed - no changes required Clif Rizzo MD social history E&M S moking History: Tenisha melo has never smoked. Maulik Blackman MD social history reviewed E&M revi ewed - no changes required Maulik Blackman MD number of grandchildren Maulik Newton rodolfo Sarai smoking status Never smoker Simeon Domingo jaye social history E&M S moking History: Tenisha mleo has never smoked. Maulik Blackman MD social history reviewed E&M revi ewed - no changes required Maulik Blackman MD smoking status Never smoker Crystal Willi ams FAMILY HISTORY Family Member Condition Mother Family History of Di abetes: INSURANCE PROVIDERS Payer name Policy type / Coverage type [place] green party ID [place] MED[place] Medicare [id number] ADVANCE DIRECTIVES Name Date DISCUSSED - NO DECISION MADE TREATMENT PLAN Date Name Performer [id number],SClif ra, [place] [id number],S, H er updated medication list for this problem includes: Carvedilol 12.5 Mg Tablet (Carvedilol) ..... Take 1 tablet by mouth every 12 hours Entresto 24-26 Mg Tablet (Sacubitril-valsartan) ..... Take 1 tablet by mouth twice a day Clif Rizzo MD [id number],SClif ra, MD [id number],SClif ra, MD [id number],SClif ra, MD [id number],SClif ra, MD [id number],S, H er updated medication list for this problem includes: Carvedilol 12.5 Mg Tablet (Carvedilol) ..... Take 1 tablet by mouth every 12 hours Entresto 24-26 Mg Tablet (Sacubitril-valsartan) ..... Take 1 tablet by mouth twice a day Clif Rizzo MD [id number],CClif ra, MD [id number],SClif ra, MD [id number],S, H er updated medication list for this problem includes: Carvedilol 12.5 Mg Tablet (Carvedilol) ..... Take 1 tablet by mouth every 12 hours Entresto 24-26 Mg Tablet (Sacubitril-valsartan) ..... Take 1 tablet by mouth twice a day Clif Rizzo MD [id number],S, Clif Shah [place] [id number],S, Clif Shah ra, MD [id number],S, Clif Shah ra, MD [id number],B, Clif Shah ra, [place] [id number],S, H er updated medication list for this problem includes: Entresto 24-26 Mg Tablet (Sacubitril-valsartan) Carvedilol 3.125 Mg Tablet (Carvedilol) ..... Take 1 tablet by mouth every 12 hours Clif Rizzo MD [id number],W, r equest testing from [facility] The following medications were removed from the medication list: Enalapril Maleate 20 Mg Tablet (Enalapril maleate) ..... 1 tablet once a day Her updated medication list for this problem includes: Entresto 24-26 Mg Tablet (Sacubitril-valsartan) Carvedilol 3.125 Mg Tablet (Carvedilol) ..... Take 1 tablet by mouth every 12 hours Clif Rizzo MD [id number],W, Clif Shah ra, MD Cardiology Clif Zhang Cardiology: H er updated medication list for this problem includes: Carvedilol 12.5 Mg Tablet (Carvedilol) ..... Take 1 tablet by mouth twice a day Clif Rizzo MD Cardiology Clif Zhang Cardiology Clif Zhang Cardiology:This mejiai t has been a part of the consistent, comprehensive, and ongoing management of the chronic medical condition(s) listed above for the patient. Her updated medication list for this problem includes: Carvedilol 12.5 Mg Tablet (Carvedilol) ..... Take 1 tablet by mouth twice a day Clif Rizzo MD Cardiology:This visi t has been a part of the consistent, comprehensive, and ongoing management of the chronic medical condition(s) listed above for the patient. Clif Rizzo MD Cardiology Clif Zhang Cardiology Clif Zhang Cardiology Clif Zhang Cardiology: H er updated medication list for this problem includes: Carvedilol 12.5 Mg Tablet (Carvedilol) ..... Take 1 tablet by mouth every 12 hours Entresto 24-26 Mg Tablet (Sacubitril-valsartan) ..... Take 1 tablet by mouth twice a day Clif Rizzo MD Cardiology Clif Zhang Cardiology Clif Zhang Cardiology Clif Zhang Cardiology Clif Zhang Cardiology: H er updated medication list for this problem includes: Carvedilol 12.5 Mg Tablet (Carvedilol) ..... Take 1 tablet by mouth every 12 hours Entresto 24-26 Mg Tablet (Sacubitril-valsartan) ..... Take 1 tablet by mouth twice a day Clif Rizzo MD Cardiology Clif Zhang Cardiology Clif Zhang Cardiology: H er updated medication list for this problem includes: Carvedilol 12.5 Mg Tablet (Carvedilol) ..... Take 1 tablet by mouth every 12 hours Entresto 24-26 Mg Tablet (Sacubitril-valsartan) ..... Take 1 tablet by mouth twice a day Clif Rizzo MD Cardiology Clif Zhang Cardiology Clif Zhang Cardiology Clif Zhang Cardiology Clif Zhang Cardiology: H er updated medication list for this problem includes: Entresto 24-26 Mg Tablet (Sacubitril-valsartan) Carvedilol 3.125 Mg Tablet (Carvedilol) ..... Take 1 tablet by mouth every 12 hours Clif Rizzo MD Cardiology: r equest testing from [facility] The following medications were removed from the medication list: Enalapril Maleate 20 Mg Tablet (Enalapril maleate) ..... 1 tablet once a day Her updated medication list for this problem includes: Entresto 24-26 Mg Tablet (Sacubitril-valsartan) Carvedilol 3.125 Mg Tablet (Carvedilol) ..... Take 1 tablet by mouth every 12 hours Clif Rizzo MD Cardiology Clif Zhang Cardiology Maulik Blackman MD Cardiology Maulik Blackman MD Cardiology Maulik Blackman MD Cardiology Maulik Blackman MD Date Name Complete Echo Complete Echo Complete Echo PROBNP, N TERMINAL BASIC METABOLIC PANE L W/EGFR Complete Echo HISTORY OF PROCEDURES Procedure Date Procedure Name Provider Procedure Notes S tatus Complex e/m visit add on Clif Rizzo MD completed Complex e/m visit add on Clif Rizzo MD completed EKG Clif Rizzo MD complet ed EKG Clif Rizzo MD complet ed EKG Clif Rizzo MD complet ed EKG Maulik Blackman MD completed
--- OUTSIDE RECORDS SUMMARY | 2025-02-14 07:21 | XMS_ITS ---
Author Organization [facility] Address [address] [place] [address] Care Team Providers Care Program Manager Rn Name Role Phone Lilly Pina LIBRARY CIRCULATION CLERK-UNIFORM FORCE CAPTAIN Primary Care Provider + Active Problems Patient [...] treatments are documented for this patient in [facility]. Treatments may have been administered in another system. 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
--- OUTSIDE RECORDS SUMMARY | 2025-02-14 07:21 | XMS_ITS | Clinical Summary ---
Author Organization [facility] Address [address] [place] [address] Care Team Providers Care Gardener Name Role Phone Lilly Pina GERMÁN-PANEL MACHINE SETTER Primary Care Provider + Source Comments [facility],non-owned Affiliates and Associated Physician Practices is amultiple site organization consisting of ambulatory clinics and hospital sitesin [place], [place], [place] and [place]. This disclosure is being madepursuant to the Care Everywhere program and may not contain all information available regarding this patient. Last updated 18.[facility] Allergies Active Allergy Reactions Criticality Noted Date [...] Comments Blood Pressure 118/76 01/08/2024 1:29 PM MEDICAL INSTRUCTOR Pulse 112 01/08/2024 1:29 PM MEDICAL INSTRUCTOR Temperature 36.3 C (97.4 F) 01/08/2024 1:29 PM MEDICAL INSTRUCTOR Respiratory Rate 16 01/08/2024 1:29 PM MEDICAL INSTRUCTOR Oxygen Saturation 98% 01/08/2024 1:29 PM MEDICAL INSTRUCTOR Inhaled Oxygen Concentration - - Weight 76.1 kg (167 lb 12.3 oz) 01/08/2024 1:29 PM MEDICAL INSTRUCTOR Height 157 cm (5' 1.81 ) 01/08/2024 1:29 PM MEDICAL INSTRUCTOR Body Mass Index 30.87 01/08/2024 1:29 PM MEDICAL INSTRUCTOR Plan of Treatment Health Maintenance Due Date [...] complete this topic MENINGOCOCCAL (Group B) VACCINE SHARED DECISION-MAKING Aged Out No longer eligible based on patient's age to complete this topic MENINGOCOCCAL GROUPS A/C/Y/W VACCINE Aged Out No longer eligible b ased on patient's age to complete this topic PNEUMOCOCCAL VACCINE Aged Out No long er eligible based on patient's age to complete this topic Medical Devices Implanted Type Area Sanitation Officer Device Identifier Shelf Expiration Date Model / Serial / Lot Melecio Bone Palacos R Implanted:Qty: 2 on 11/26/2015 by Wilmer Pollard MD at [facility] Right: Knee [employer] 06/29/2020 [id number] / / [id number] Distal Femur Axial Pin Implanted:Qty: 1 on 11/26/2015 by Wilmer Pollard MD at [facility] Right: Knee [employer] 03/30/2022 [id number] / / [id number] Mid Section, Size 40mm Implanted:Qty: 1 on 11/26/2015 by Wilmer Pollard MD at [facility] Right: Knee [employer] 11/30/2022 [id number] / / [id number] Canal Filling Stem Extension 11mm X 140mm Implanted:Qty: 1 on 11/26/2015 by Wilmer Pollard MD at [facility] Right: Knee [employer] 04/28/2022 [id number] / / [id number] Guardian Tibial Sleeve W/Plugs, Sz 1 Implanted:Qty: 1 on 11/26/2015 by Wilmer Pollard MD at [facility] Right: Knee [employer] 07/29/2022 [id number] / / [id number] Repiphysis To Guardian Taper Adapter + Two Pins Implanted:Qty: 1 on 11/26/2015 by Wilmer Pollard MD at [facility] Right: Knee [employer]ard [employer] 11/29/2015 [id number] / / [id number] Advanced Onlay All-Poly Patella 32mm Tri-Peg Thickness 8mm Implanted:Qty: 1 on 11/26/2015 by Wilmer Pollard MD at [facility] Right: Knee [employer] 08/29/2023 [id number] / / [id number] Guardian Distal Femoral Right Implanted:Qty: 1 on 11/26/2015 by Wilmer Pollard MD at [facility] Right: Knee [employer] 04/28/2022 [id number] / / [id number] Guardian Med-Section Size 60mm Implanted:Qty: 1 on 11/26/2015 by Wilmer Pollard MD at [facility] Right: Knee [employer] 11/28/2018 [id number] / / [id number] Tibial Hinge Base With Rotational Stop Pin Implanted:Qty: 1 on 11/26/2015 by Wilmer Pollard MD at [facility] Right: Knee [employer] 04/30/2023 [id number] / / [id number] Tibial Poly Spacer, Size 8mm Implanted:Qty: 1 on 11/26/2015 by Wilmer Pollard MD at [facility] Right: Knee [employer] 01/28/2022 [id number] / / [id number] Explanted Type Area Sanitation Officer Device Identifier Shelf Expiration Date Model / Serial / Lot Guidewire 3.0 X 98cm Explanted:Qty: 1 on 11/26/2015 at [facility] Right: Knee [employer] 01/28/2025 [id number] / / [id number] Procedures Procedure Name Priority Date/Time Associated Diagnosis Comments HIV-1 HIV-2 ANTIGEN/ANTIBODY STAT 10/03/2020 3:39 PM MEDICAL INSTRUCTOR from Last 3 Months or Most Recently Relevant to Health Maintenance Results * HIV-1 HIV-2 ANTIGEN/ANTIBODY (10/03/2020 3:39 PM MEDICAL INSTRUCTOR) HIV Antigen/Antibod y 1 & 2 Non-reacti ve Non-react marialuisa 10/03/2020 4:28 PM MEDICAL INSTRUCTOR [facility] Comment:Neither HIV-1 p24 An tigen nor HIV-1/HIV-2 Antibodies are detected. Blood BLOOD SPECIMEN / Unknown Venipuncture / Unknown 10/03/2020 3:39 PM MEDICAL INSTRUCTOR 10/03/2020 3:56 PM MEDICAL INSTRUCTOR Clif Pulido MD LAB - HEMATOLOGY ORDERABLES Performing Organization Address City/State/[facility] Co de Phone Number [facility] [address] [place] [address], [facility] [phone] from Last 3 Months or Most Recently Relevant to Health Maintenance Additional Health Concerns Infection Onset Date Last Indicated MRSA 11/27/2015 11/27/2015 Advance Directives * Full Code (Latest Code Status on File) Date Activated Date Inactivated Comments 11/26/2015 9:33 PM 12/01/2015 1:24 PM Care Teams Gardener Relationship Specialty Start Date End Date Lilly Pina APRN-GABBY [facility] [place] [id number] PCP - General Nurse Practitioner 06/13/22
--- OUTSIDE RECORDS SUMMARY | 2025-02-14 07:21 | XMS_ITS | Referral Summary ---
Author Organization [facility] Address [address] [place] [address] Care Team Providers Care Track Laborer Name Role Phone Lilly Pina [employer] SUPERVISOR Primary Care Provider + Source Comments [facility],non-owned Affiliates and Associated Physician Practices is amultiple site organization consisting of ambulatory clinics and hospital sitesin [place], [place], [place] and [place]. This disclosure is being madepursuant to the Care Everywhere program and may not contain all information available regarding this patient. Last updated 18.[facility] Allergies Active Allergy Reactions Criticality Noted [...] Comments Blood Pressure 118/76 01/08/2024 1:29 PM COUNT TEAM MEMBER Pulse 112 01/08/2024 1:29 PM COUNT TEAM MEMBER Temperature 36.3 C (97.4 F) 01/08/2024 1:29 PM COUNT TEAM MEMBER Respiratory Rate 16 01/08/2024 1:29 PM COUNT TEAM MEMBER Oxygen Saturation 98% 01/08/2024 1:29 PM COUNT TEAM MEMBER Inhaled Oxygen Concentration - - Weight 76.1 kg (167 lb 12.3 oz) 01/08/2024 1:29 PM COUNT TEAM MEMBER Height 157 cm (5' 1.81 ) 01/08/2024 1:29 PM COUNT TEAM MEMBER Body Mass Index 30.87 01/08/2024 1:29 PM COUNT TEAM MEMBER Functional Status Functional Status Response Date of [...] on file Medical Devices Implanted Type Area Complaint Investigations Officer Device Identifier Shelf Expiration Date Model / Serial / Lot Melecio Bone Palacos R Implanted:Qty: 2 on 11/26/2015 by Wilmer Pollard MD at [facility] Right: Knee [employer] 06/29/2020 [id number] / / [id number] Distal Femur Axial Pin Implanted:Qty: 1 on 11/26/2015 by Wilmer Pollard MD at [facility] Right: Knee [employer] 03/30/2022 [id number] / / [id number] Mid Section, Size 40mm Implanted:Qty: 1 on 11/26/2015 by Wilmer Pollard MD at [facility] Right: Knee [employer] 11/30/2022 [id number] / / [id number] Canal Filling Stem Extension 11mm X 140mm Implanted:Qty: 1 on 11/26/2015 by Wilmer Pollard MD at [facility] Right: Knee [employer] 04/28/2022 [id number] / / [id number] Guardian Tibial Sleeve W/Plugs, Sz 1 Implanted:Qty: 1 on 11/26/2015 by Wilmer Pollard MD at [facility] Right: Knee [employer] 07/29/2022 [id number] / / [id number] Repiphysis To Guardian Taper Adapter + Two Pins Implanted:Qty: 1 on 11/26/2015 by Wilmer Pollard MD at [facility] Right: Knee [employer] 11/29/2015 [id number] / / [id number] Advanced Onlay All-Poly Patella 32mm Tri-Peg Thickness 8mm Implanted:Qty: 1 on 11/26/2015 by Wilmer Pollard MD at [facility] Right: Knee [employer] 08/29/2023 [id number] / / [id number] Guardian Distal Femoral Right Implanted:Qty: 1 on 11/26/2015 by Wilmer Pollard MD at [facility] Right: Knee [employer] 04/28/2022 [id number] / / [id number] Guardian Med-Section Size 60mm Implanted:Qty: 1 on 11/26/2015 by Wilmer Pollard MD at [facility] Right: Knee [employer] 11/28/2018 [id number] / / [id number] Tibial Hinge Base With Rotational Stop Pin Implanted:Qty: 1 on 11/26/2015 by Wilmer Pollard MD at [facility] Right: Knee [employer] 04/30/2023 [id number] / / [id number] Tibial Poly Spacer, Size 8mm Implanted:Qty: 1 on 11/26/2015 by Wilmer Pollard MD at [facility] Right: Knee [employer] 01/28/2022 [id number] / / [id number] Explanted Type Area Complaint Investigations Officer Device Identifier Shelf Expiration Date Model / Serial / Lot Guidewire 3.0 X 98cm Explanted:Qty: 1 on 11/26/2015 at [facility] Right: Knee [employer] 01/28/2025 [id number] / / [id number] Procedures Procedure Name Priority Date/Time Associated Diagnosis Comments HIV-1 HIV-2 ANTIGEN/ANTIBODY STAT 10/03/2020 3:39 PM COUNT TEAM MEMBER from Last 3 Months or Most Recently Relevant to Health Maintenance Results * HIV-1 HIV-2 ANTIGEN/ANTIBODY (10/03/2020 3:39 PM COUNT TEAM MEMBER) HIV Antigen/Antibod y 1 & 2 Non-reacti ve Non-react marialuisa 10/03/2020 4:28 PM COUNT TEAM MEMBER [facility] Comment:Neither HIV-1 p24 An tigen nor HIV-1/HIV-2 Antibodies are detected. 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
--- OUTSIDE RECORDS SUMMARY | 2025-02-14 07:21 | XMS_ITS | Patient Health Summary ---
Author Organization [facility] Address [address] [place] [address] Care Team Providers Care Quality Control Inspector Heading Name Role Phone Lilly Pina GERMÁN-CLINICAL PROGRAM DIRECTOR Primary Care Provider + Note from [facility],non-owned Affiliates and Associated Physician Practices is amultiple site organization consisting of ambulatory clinics and hospital sitesin [place], [place], [place] and [place]. This disclosure is being madepursuant to the Care Everywhere program and may not contain all information available regarding this patient. Last updated 18.[facility] Allergies * Ceftazidime(Urticaria) * Clindamycin(Other) * [...] Comments Blood Pressure 118/76 01/08/2024 1:29 PM VIDEO INTERN Pulse 112 01/08/2024 1:29 PM VIDEO INTERN Temperature 36.3 C (97.4 F) 01/08/2024 1:29 PM VIDEO INTERN Respiratory Rate 16 01/08/2024 1:29 PM VIDEO INTERN Oxygen Saturation 98% 01/08/2024 1:29 PM VIDEO INTERN Inhaled Oxygen Concentration - - Weight 76.1 kg (167 lb 12.3 oz) 01/08/2024 1:29 PM VIDEO INTERN Height 157 cm (5' 1.81 ) 01/08/2024 1:29 PM VIDEO INTERN Body Mass Index 30.87 01/08/2024 1:29 PM VIDEO INTERN Medical Devices Implanted Type Area Calender Machine Operator Helper Device Identifier Shelf Expiration Date Model / Serial / Lot Melecio Bone Palacos R Implanted:Qty: 2 on 11/26/2015 by Wilmer Pollard MD at [facility] Right: Knee [employer] 06/29/2020 [id number] / / [id number] Distal Femur Axial Pin Implanted:Qty: 1 on 11/26/2015 by Wilmer Pollard MD at [facility] Right: Knee [address] [employer] 03/30/2022 [id number] / / [id number] Mid Section, Size 40mm Implanted:Qty: 1 on 11/26/2015 by Wilmer Pollard MD at [facility] Right: Knee [employer] 11/30/2022 [id number] / / [id number] Canal Filling Stem Extension 11mm X 140mm Implanted:Qty: 1 on 11/26/2015 by Wilmer Pollard MD at [facility] Right: Knee [employer] 04/28/2022 [id number] / / [id number] Guardian Tibial Sleeve W/Plugs, Sz 1 Implanted:Qty: 1 on 11/26/2015 by Wilmer Pollard MD at [facility] Right: Knee [address] [employer] 07/29/2022 [id number] / / [id number] Repiphysis To Guardian Taper Adapter + Two Pins Implanted:Qty: 1 on 11/26/2015 by Wilmer Pollard MD at [facility] Right: Knee [employer] 11/29/2015 [id number] / / [id number] Advanced Onlay All-Poly Patella 32mm Tri-Peg Thickness 8mm Implanted:Qty: 1 on 11/26/2015 by Wilmer Pollard MD at [facility] Right: Knee [employer] 08/29/2023 [id number] / / [id number] Guardian Distal Femoral Right Implanted:Qty: 1 on 11/26/2015 by Wilmer Pollard MD at [facility] Right: Knee [employer] 04/28/2022 [id number] / / [id number] Guardian Med-Section Size 60mm Implanted:Qty: 1 on 11/26/2015 by Wilmer Pollard MD at [facility] Right: Knee [employer] 11/28/2018 [id number] / / [id number] Tibial Hinge Base With Rotational Stop Pin Implanted:Qty: 1 on 11/26/2015 by Wilmer Pollard MD at [facility] Right: Knee [employer] 04/30/2023 [id number] / / [id number] Tibial Poly Spacer, Size 8mm Implanted:Qty: 1 on 11/26/2015 by Wilmer Pollard MD at [facility] Right: Knee [employer] 01/28/2022 [id number] / / [id number] Explanted Type Area Calender Machine Operator Helper Device Identifier Shelf Expiration Date Model / Serial / Lot Guidewire 3.0 X 98cm Explanted:Qty: 1 on 11/26/2015 at [facility] Right: Knee [employer] 01/28/2025 [id number] / / [id number] Procedures * CBC W AUTO DIFFERENTIAL(Performed 01/08/2024) [...] internal right knee prosthetic joint, initial encounter ([facility]), Preop examination * XR CHEST 2VW(Performed 11/08/2015) Performed for Pre-op testing * COMPREHENSIVE METABOLIC PANEL(Performed 11/08/2015) Performed for Preop examination, Mechanical loosening of internal right knee prosthetic joint, initial encounter ([facility]) * CBC W AUTO DIFFERENTIAL(Performed 11/08/2015) Performed for Preop examination, Mechanical loosening of internal right knee prosthetic joint, initial encounter ([facility]) * CULTURE MSSA/MRSA(Performed 11/08/2015) Performed for Preop examination, Mechanical loosening of internal right knee prosthetic joint, initial encounter ([facility]) * NM BONE SCAN 3 PHASE(Performed 07/27/2015) [...] for Cardiomyopathy in other diseases classified elsewhere ([facility]) * XR BONE LENGTH SCANOGRAM(Performed 05/27/2013) Performed for Unequal leg length (acquired) * CBC W AUTO DIFFERENTIAL(Performed 04/22/2013) Performed for Osteosarcoma (HCC) * XR ANKLE RIGHT 3VW OR MORE(Performed 04/22/2013) Performed for Pain in ankle joint * ECHO CONSULT - PEDIATRIC(Performed 12/10/2012) Performed for Cardiomyopathy in other diseases classified elsewhere ([facility]) * IP CONSULT TO PEDIATRIC ORTHOPEDICS(Performed 07/26/2012) [...] for Cardiomyopathy in other diseases classified elsewhere ([facility]) * ECHO CONSULT - PEDIATRIC(Performed 09/09/2011) Performed for Cardiomyopathy in other diseases classified elsewhere ([facility]) * DEXA BONE DENSITY AXIAL SKELETON(Performed 09/09/2011) 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[facility]) * CBC W AUTO DIFFERENTIAL(Performed 05/23/2011) * COMPREHENSIVE METABOLIC PANEL(Performed 05/23/2011) Performed for Osteosarcoma ([facility]) * XR LOWER EXTREMITY STANDING(Performed 05/23/2011) Performed [...] for Cardiomyopathy in other diseases classified elsewhere ([facility]) * GROSS + MICRO EXAM(Performed 07/22/2010) * HCG URINE QUALITATIVE(Performed 07/22/2010) * XR CHEST 2VW(Performed 07/21/2010) Performed for Cardiomyopathy, Osteosarcoma ([facility]) * US ABDOMEN LIMITED(Performed 07/20/2010) Performed for [...] Neoplasm of Long Bones of Lower Limb ([facility]) * GROSS + MICRO EXAM(Performed 01/11/2008) * GROSS + MICRO EXAM(Performed 06/01/2007) * GROSS + MICRO EXAM(Performed 06/10/2005) * GROSS + MICRO EXAM(Performed 03/02/2005) Results * (ABNORMAL) CBC W AUTO DIFFERENTIAL (01/08/2024 2:34 PM VIDEO INTERN) Only the most recent of15 resultswithin the time period is included. WBC 9.6 4.0 - 10.7 x10E9/L 01/08/2024 2:50 PM [facility] RBC Count 4.38 3.90 - 5.20 x10E12/L 01/08/2024 2:50 PM [facility] Hemoglobin 14.0 11.9 - 15.8 g/dL 01/08/2024 2:50 PM [facility] Hematocrit 40.8 34.8 - 46.1 % 01/08/2024 2:50 PM [facility] MCV 93.2 80.0 - 98.0 fL 01/08/2024 2:50 PM [facility] MCH 32.0 26.7 - 33.6 pg 01/08/2024 2:50 PM [facility] MCHC 34.3 31.7 - 36.3 g/dL 01/08/2024 2:50 PM [facility] RDW-CV 12.6 11.3 - 14.8 % 01/08/2024 2:50 PM [facility] Platelet Count 273 150 - 420 x10E9/L 01/08/2024 2:50 PM [facility] MPV 11.5(H) 7.8 - 11.4 fL 01/08/2024 2:50 PM [facility] Preliminary Absolute Neutrophil 5.78 1.60 - 7.50 x10E9/L 01/08/2024 2:50 PM [facility] Neutrophil % 60.0 41.0 - 74.0 % 01/08/2024 2:50 PM [facility] Lymphocyte % 28.3 17.0 - 47.0 % 01/08/2024 2:50 PM [facility] Monocyte % 8.6 3.0 - 11.0 % 01/08/2024 2:50 PM [facility] Eosinophil % 2.0 0.0 - 7.0 % 01/08/2024 2:50 PM [facility] Basophil % 0.8 0.0 - 1.6 % 01/08/2024 2:50 PM [facility] Immature Granulocytes % 0.3 0.0 - 1.0 % 01/08/2024 2:50 PM [facility] Neutrophil Absolute 5.78 1.60 - 7.50 x10E9/L 01/08/2024 2:50 PM [facility] Lymphocyte Absolute 2.73 1.00 - 4.40 x10E9/L 01/08/2024 2:50 PM [facility] Monocyte Absolute 0.83 0.15 - 1.00 x10E9/L 01/08/2024 2:50 PM [facility] Eosinophil Absolute 0.19 0.00 - 0.60 x10E9/L 01/08/2024 2:50 PM [facility] Basophil Absolute 0.08 0.00 - 0.13 x10E9/L 01/08/2024 2:50 PM [facility] Blood BLOOD SPECIMEN / Unknown Venipuncture / Unknown 01/08/2024 2:34 PM VIDEO INTERN 01/08/2024 2:41 PM VIDEO INTERN Pepito Solano MD LAB - HEMATOLOGY ORD ERABLES [facility] [address] [place] [phone], [facility] [phone] * CARDIAC EKG ORDER (09/10/2023 7:04 PM [...] Impressions 09/10/2023 9:35 AM CDT IMPRESSION: 1. No pulmonary embolism or pneumonia. 2. Mild interstitial edema without pleural effusion. 3. Mediastinal adenopathy, most likely reactive > Interpreting Provider: Rod Connor MD on 09/10/2023 9:35 AM Narrative 09/10/2023 9:35 AM CDT PROCEDURE: CT ANGIO CHEST PULM EMBOLISM DATE/TIME [...] is good for evaluating the pulmonary arteries. There are no intraluminal filling defects indicate pulmonary embolism. There is no pneumonia, mass or pleural effusion. However septal thickening occurs in the dependent portions of the lungs indicating interstitial edema. Overall heart size is normal but there is mild enlargement of the left atrium. No pericardial effusion. No calcified plaque in the coronary arteries. There is mild central and hilar adenopathy. For example a subcarinal node measures 2.4 x 1.1 cm. Right hilar nodes measure up to 1.5 x 0.7 cm. Left hilar nodes measure up to 1.3 x 1.1 cm. There are several enlarged prevascular nodes up to [...] SENSITIVE REFLEX 1HOUR (09/09/2023 9:25 PM CDT) [facility] Troponin I High Sensitive 12 <=14 ng/L 09/09/2023 9:54 PM CDT [facility] Delta Troponin I HS 09/09/2023 9:54 PM CDT [facility] Comment:Delta value intentio kendra not calculated. Baseline to 1 hour specimen collection interval exceeded. Blood BLOOD SPECIMEN / Unknown Venipuncture / Unknown 09/09/2023 9:25 PM CDT 09/09/2023 9:25 PM CDT Terrence Chapman DO LAB - CHEMISTRY ORDERABLES [facility] [address] [place] [address] * SARS-COV-2 (COVID-19) RAPID (09/09/2023 7:46 PM CDT) [facility] COVID-19 PCR Not detected Not detected 09/09/20 23 8:29 PM CDT [facility] Microbiology SPECIMEN FROM NASOPHARYNGEAL STRUCTURE / Unknown Collection / Unknown 09/09/2023 7:46 PM CDT 09/09/2023 7:56 PM CDT Narrative [facility] - 09/09/2023 8:29 PM CDT The [employer] Xpert Xpress SARS-COV-2 has been authorized by [...] - MICROBIOL OGY ORDERABLES Performing Organization Address City/[facility]/ZIP Co de Phone Number [facility] [address] [place] [phone] * TROPONIN-I HIGH SENSITIVE BASELINE + 1HR (09/09/2023 7:45 PM CDT) Troponin I High Sensitive 13 <=14 ng/L 09/09/2023 8:20 PM CDT [facility] Blood BLOOD SPECIMEN / Unknown Venipuncture / Unknown 09/09/2023 7:45 PM CDT 09/09/2023 7:56 PM CDT Terrence Chapman DO LAB - CHEMISTRY ORDERABLES Performing Organization Address [facility] Co de Phone Number [facility] [address] [place] [phone] * (ABNORMAL) D-DIMER (09/09/2023 7:45 PM CDT) Only the most recent of3 resultswithin the time period is included. Pathologist [facility] D-Dimer 0.79(H) 0.27 - 0.50 ug/mL FEU 09/09/2023 8:09 PM CDT [facility] Blood BLOOD SPECIMEN / Unknown Venipuncture / Unknown 09/09/2023 7:45 PM CDT 09/09/2023 7:56 PM CDT [facility] - 09/09/2023 8:09 PM CDT In the absence of clinical symptoms, a value less than or equal to 0.5 mcg/mL FEU significantly decreases the probability of PE/DVT (negative predictive value >95%). 1 mcg/ml FEU = 1 Fibrinogen Equivalent Unit (approximates 0.5 mcg/mL of D- dimer). Terrence Chapman DO LAB - COAGULATI ON ORDERABLES Performing Organization Address City/State/[facility] Co de Phone Number [facility] [address] [place] [address] * (ABNORMAL) B-TYPE NATRIURETIC PEPTIDE (09/09/2023 7:45 PM CDT) Pathologist [facility] BNP 407(H) <=100 pg/mL 09/09/2023 8:20 PM CDT [facility] Blood BLOOD SPECIMEN / Unknown Venipuncture / Unknown 09/09/2023 7:45 PM CDT 09/09/2023 7:56 PM CDT [facility] - 09/09/2023 8:20 PM CDT A cutoff of 100 pg/mL has been demonstrated to provide the maximal combination of sensitivity, specificity, and negative predictive value for contributing to the diagnosis of congestive heart failure (CHF) only. A B-Type Natriuretic Peptide (BNP) value greater than or equal to 100 pg/mL is consistent with a diagnosis of CHF in the appropriate clinical setting. False positive results are more common in females greater than 75 years of age. Blood concentrations of natriuretic peptides may also be elevated in patients with myocardial infarction and in patients who are candidates for or are undergoing renal dialysis. Terrence Chapman LAB - CHEMISTRY ORDERABLES [facility] [address] [place], [place] [id number] * COMPREHENSIVE METABOLIC PANEL (09/09/2023 7:45 PM CDT) Only the most recent of10 resultswithin the time period is included. Glucose 88 70 - 105 mg/dL 09/09/2023 8:14 PM CDT [facility] Sodium 140 136 - 145 mmol/L 09/09/2023 8:14 PM CDT [facility] Potassium 3.5 3.5 - 5.1 mmol/L 09/09/2023 8:14 PM CDT [facility] Chloride 104 98 - 107 mmol/L 09/09/2023 8:14 PM CDT [facility] CO2 22 22 - 29 mmol/L 09/09/2023 8:14 PM CDT [facility] Calcium 9.3 8.4 - 10.4 mg/dL 09/09/2023 8:14 PM CDT [facility] Anion Gap 14 6 - 16 mmol/L 09/09/2023 8:14 PM CDT [facility] BUN 9 5.3 - 18.7 mg/dL 09/09/2023 8:14 PM CDT [facility] Creatinine 0.70 0.57 - 1.11 mg/dL 09/09/2023 8:14 PM CDT [facility] Alkaline Phosphatase 51 40 - 150 U/L 09/09/2023 8:14 PM CDT [facility] ALT 28 0 - 55 U/L 09/09/2023 8:14 PM CDT [facility] AST 25 5 - 34 U/L 09/09/2023 8:14 PM CDT [facility] Protein Total 7.8 6.4 - 8.3 gm/dL 09/09/2023 8:14 PM CDT [facility] Albumin 3.9 3.4 - 5.0 gm/dL 09/09/2023 8:14 PM CDT [facility] Bilirubin Total 0.7 0.2 - 1.2 mg/dL 09/09/2023 8:14 PM CDT [facility] eGFR by CKD-EPI >90 >=90 mL/min/1.7 3 m2 09/09/2023 8:14 PM CDT [facility] Blood BLOOD SPECIMEN / Unknown Venipuncture / Unknown 09/09/2023 7:45 PM CDT 09/09/2023 7:56 PM CDT Terrence Chapman DO LAB - CHEMISTRY ORDERABLES Performing Organization Address City/State/[facility] Co de Phone Number [facility] [address] [place] [address] * XR CHEST 2VW (09/09/2023 5:52 PM CDT) Only the most recent of6 resultswithin the time period is included. Anatomical Region Laterality Modality Chest Radiographic Radha ging 09/09/2023 6:23 PM CDT Impressions 09/09/2023 6:23 PM CDT IMPRESSION: No acute process. No change. > Interpreting Provider: Nhan Crow MD on 09/09/2023 6:23 PM Narrative 09/09/2023 6:23 PM CDT PROCEDURE: XR CHEST 2VW DATE/TIME OF EXAM: [...] acute process. No change. > Interpreting Provider: Nhna Crow MD on 09/09/2023 6:23 PM Terrence [...] (Bezet) 453 ms [facility] MUSE Calculated P [place] 28 degrees [facility] MUSE Calculated R [place] -21 degrees [facility] MUSE Calculated T [place] 44 degrees [facility] Interpretation EKG SINUS TACHYCARDIA LOW VOLTAGE QRS NONSPECIFIC T WAVE ABNORMALITY ABNORMAL ECG WHEN COMPARED WITH ECG OF 29-DEC-2020 21:30, NO SIGNIFICANT CHANGE WAS FOUND Confirmed by Geoff Rizzo MD ([id number]) on 09/10/2023 6:52:03 AM [facility] MUSE 09/09/2023 5:12 PM CDT 09/10/2023 6:52 AM CDT Brynn Cardoza DO ECG ORDERABLES [facility] * (ABNORMAL) BASIC METABOLIC PANEL (CALCIUM TOTAL) (06/13/2022 3:16 PM CDT) Only the most recent of4 resultswithin the time period is included. BUN 10 7 - 26 mg/dL 06/13/2022 3:51 PM CDT [facility] Creatinine 0.55(L) 0.56 - 0.96 mg/dL 06/13/2022 3:51 PM CDT [facility] Sodium 142 136 - 145 mmol/L 06/13/2022 3:51 PM CDT [facility] Potassium 3.8 3.5 - 4.5 mmol/L 06/13/2022 3:51 PM CDT [facility] Chloride 104 98 - 107 mmol/L 06/13/2022 3:51 PM CDT [facility] CO2 20(L) 22 - 29 mmol/L 06/13/2022 3:51 PM CDT [facility] Glucose 94 70 - 115 mg/dL 06/13/2022 3:51 PM CDT [facility] Calcium 9.7 8.4 - 10.2 mg/dL 06/13/2022 3:51 PM CDT [facility] Anion Gap 22(H) 8 - 18 06/13/2022 3:51 PM CDT [facility] BUN/Creatinine Ratio 18 7 - 23 06/13/2022 3:51 PM CDT [facility] Osmolality Calculated 293 270 - 300 mOsm/kg 06/13/2022 3:51 PM T [facility] eGFR by CKD-EPI >90 >=90 mL/min/1.7 3 m2 06/13/2022 3:51 PM CDT [facility] Blood BLOOD SPECIMEN / Unknown Venipuncture / Unknown 06/13/2022 3:16 PM CDT 06/13/2022 3:23 PM CDT Pepito Solano MD LAB - CHEMISTRY ZOË MACHADO [facility] Organization Address City/State/ZIP Co de Phone Number [facility] [address] [place] [address], [facility] [phone] * XR TIBIA FIBULA RIGHT 2VW (06/04/2022 [...] was electronically signed by TREVIN MEEKS MD on 06/04/2022 2:10 PM . Narrative 06/04/2022 2:10 PM CDT Exam: XR FEMUR RIGHT 2VW, XR TIBIA [...] the distal tibial shaft. [place] are seen at the tibial tuberosity. The [...] component extending into the distal tibial shaft. [place] are seen atthe tibial tuberosity. The prosthesis [...] was electronically signed by TREVIN MEEKS MD on 06/04/2022 2:10 PM . Narrative 06/04/2022 2:10 PM CDT Exam: XR FEMUR RIGHT 2VW, XR TIBIA [...] component extending into the distal tibial shaft. [place] are seen at the tibial tuberosity. The [...] of complication. Dictated by Mj Mayberry MD (vice president and portfolio manager). I, Dr. EILZA GALINDO have personally reviewed and interpreted this examination/study. This report was electronically signed by ELIZA GALINDO on 05/22/2022 8:47 PM . Narrative 05/22/2022 8:47 [...] of complication. Dictated by Mj Mayberry MD (vice president and portfolio manager). I, Dr. ELIZA GALINDO have personally reviewed and interpreted this examination/study. This report was electronically signed by ELIZA GALINDO on05/22/2022 8:47 PM . Rashad Holloway MD DIAGNOSTIC IMAGING O RDERABLES * SKIN TEST PPD - POINT OF CARE (07/01/2021 1:03 PM CDT) PPD negative [facility] Comment:no induration Other MISCELLANEOUS SAMPLE S / Unknown 07/01/2021 1:03 PM CDT Selvin Chacon BASKET OPERATOR-CLINICAL PROGRAM DIRECTOR LAB - POINT OF CARE ORDERABLES Performing Organization Address City/State/[facility] Co de Phone Number [facility] [address] [phone] * XR KNEE RIGHT 3VW (04/14/2021 10:31 [...] is present. Dictated by Belen Magallanes MD (vice president and portfolio manager). Dr. JOSHUA Aiken have personally reviewed and interpreted this examination/study. This report was electronically signed by JOSHUA DANGELO on 04/15/2021 12:03 PM . Narrative 04/15/2021 12:03 PM CDT EXAMINATION: XR KNEE RIGHT 3VW HISTORY: M25.561: Acute pain of right knee COMPARISON: Comparison is made with a study from 12/28/2020 Procedure Note Joshua Dangelo, - 04/15/2021 EXAMINATION: XR KNEE RIGHT 3VW [...] swelling ispresent. Dictated by Belen Magallanes MD (vice president and portfolio manager). Dr. JOSHUA Aiken have personally reviewed and interpreted this examination/study. This report was electronically signed by JOSHUA DANGELO on 04/15/2021 12:03 PM . Janna Hernández PA-C DIAGNOSTIC IMAGING O RDERABLES * C-REACTIVE PROTEIN (12/29/2020 9:43 PM VIDEO INTERN) Only the most recent of4 resultswithin the time period is included. C-Reactive Protein <0.5 <=0.5 mg/dL 12/29/2020 10:24 PM VIDEO INTERN [facility] Blood BLOOD SPECIMEN / Unknown Venipuncture / Unknown 12/29/2020 9:43 PM VIDEO INTERN 12/29/2020 6:16 PM VIDEO INTERN Sharonda Vera MD LAB - CHEMISTRY ORDE RABLES [facility] [address] [place] [phone], [facility] [phone] * (ABNORMAL) ERYTHROCYTE SEDIMENTATION RATE (12/29/2020 9:42 PM VIDEO INTERN) Only the most recent of4 resultswithin the time period is included. Erythrocyte Sedimentation Rate Westergren 63(H) 0 - 20 MM/HR 12/29/2020 10:07 PM VIDEO INTERN [facility] Blood BLOOD SPECIMEN / Unknown Venipuncture / Unknown 12/29/2020 9:42 PM VIDEO INTERN 12/29/2020 6:16 PM VIDEO INTERN Sharonda Vera MD LAB - HEMATOLOGY ORD ERABLES Performing Organization Address City/[facility]/ZIP Co de Phone Number [address] [address], [facility] [phone] * SARS-COV-2 (COVID-19) IN HOUSE (10/03/2020 8:31 PM VIDEO INTERN) COVID-19 PCR Not detected Not detected 10/04/2020 1:03 PM VIDEO INTERN [facility] Microbiology SPECIMEN FROM NASOPHARYNGEAL STRUCTURE / Unknown Collection / Unknown 10/03/2020 8:31 PM VIDEO INTERN 10/03/2020 8:37 PM VIDEO INTERN Narrative [facility] - 10/04/2020 1:03 PM VIDEO INTERN This nucleic acid amplification assay performance was validated by [facility]. This test has been authorized by the Food and Drug administration (FDA)under an Emergency Use Authorization (EUA). This test [...] Cummings MD LAB - MICROBIOLOGY O RDERABLES [facility] MICROBIOLOGY [address] [place] [address], [facility] [phone] * HCG URINE QUALITATIVE (10/03/2020 5:57 PM VIDEO INTERN) Only the most recent of3 resultswithin the time period is included. Test Urine Negative Negative 10/03/2020 6:24 PM VIDEO INTERN [facility] Urine URINE / Unknown Collection / Unknown 10/03/2020 5:57 PM VIDEO INTERN 10/03/2020 6:06 PM VIDEO INTERN Clif Pulido MD LAB - URINALYSIS ORDERABLES Performing Organization Address [facility]/ZIP Co de Phone Number [address] [phone], [facility] [phone] * HIV-1 HIV-2 ANTIGEN/ANTIBODY (10/03/2020 3:39 PM VIDEO INTERN) Pathologist [facility] HIV Antigen/Antibod y 1 & 2 Non-reacti ve Non-react marialuisa 10/03/2020 4:28 PM VIDEO INTERN [facility] Comment:Neither HIV-1 p24 An tigen nor HIV-1/HIV-2 Antibodies are detected. Blood BLOOD SPECIMEN / Unknown Venipuncture / Unknown 10/03/2020 3:39 PM VIDEO INTERN 10/03/2020 3:56 PM VIDEO INTERN Clif Pulido MD LAB - HEMATOLOGY ORDERABLES Performing Organization Address City/[facility]/ZIP Co de Phone Number [address] [address], [place] [phone] * US EXTREM RIGHT LTD NONVASC (06/06/2019 1:14 PM CDT) Anatomical Region Laterality Modality Ultrasound 06/06/2019 1:21 PM CDT Impressions 06/06/2019 1:24 PM CDT Persistent right inguinal lymphadenopathy. Reading Radiologist: Madie Clark MD on 06/06/2019 at 1:24 PM Narrative 06/06/2019 1:24 PM CDT EXAMINATION: ULTRASOUND SOFT TISSUES RIGHT GROIN HISTORY: [...] 3:10 PM. Dictated by Ryan Cr MD (vice president and portfolio manager). Madie Aiken, have personally reviewed the images [...] 3:10 PM. Dictated by Ryan Cr MD (vice president and portfolio manager). Madie Aiken, have personally reviewed the images [...] aureus (MRSA) LY 04/18/2018 6:27 AM CDT [facility] Microbiology SPECIMEN FROM NASAL FOSSAE / Unknown Collection / Unknown 04/16/2018 3:12 PM CDT 04/16/2018 3:48 PM CDT Aguila Jacinto MD LAB - MICROBIOLOG Y ORDERABLES [facility]CROBIOLOGY [address] [place], [place] [id number] [place] [address] * ECHO CONSULT - PEDIATRIC (04/16/2018 3:05 PM CDT) Only the most recent of9 resultswithin the time period is included. 04/16/2018 3:05 PM CDT Narrative Procedure Note Aguila Jacinto MD - 04/16/2018 [facility] [place] [address] Fax Congenital Transthoracic Report Pat.Name: GEORGINA BISHOP Pat.ID: [id number] .Date: 04/16/2018 Exam Time: 3:05:00 PM Study Type:Congenital TTE Height: 156.3cm Weight: 63.8kg BSA: 1.64 m2 Age: 8 1995,22Y Sex: FEMALE BP: 96/60 Sonogrphr: COMPA Silvestre Pat. Stat.:Outpatient Reason for Study:Dilated Cardiomyopathy Procedures:2D Non-congenital, Doppler Complete, Color Flow Visit ID: [id number] SUMMARY: Impression: Normal intracardiac anatomy and normal [...] parveen -18 % Signed 04/16/2018 04:12 PM Augila Jacinto MD Aguila Jacinto MD ECHO ORDERABLES [facility] [address] [place] [address] * CARDIAC RHYTHM STRIP ORDER (12/04/2015 8:11 PM VIDEO INTERN) Narrative 12/04/2015 8:11 PM VIDEO INTERN Ordered by an unspecified provider. Scanned Document CARDIAC SERVICES ORD ERABLES * IMAGING/RADIOLOGY/XRAY RESULTS ORDER (12/04/2015 8:00 PM VIDEO INTERN) Anatomical Region Laterality Modality Other Narrative 12/04/2015 8:00 PM VIDEO INTERN Ordered by an unspecified provider. Scanned Document IMAGING * GLUCOSE - POINT OF CARE (11/30/2015 10:34 AM VIDEO INTERN) Glucose WB/POC 89 70 - 106 mg/dL 12/01/2015 4:55 AM VIDEO INTERN [facility] Blood BLOOD SPECIMEN / Unknown 11/30/2015 10:34 AM VIDEO INTERN 12/01/2015 4:55 AM VIDEO INTERN Wilmer Pollard MD LAB - POINT OF CARE ORDERABLES Performing Organization Address City/[facility]/ZIP Co de Phone Number [facility] [address] [place] [phone] * (ABNORMAL) HGB HCT PANEL (11/30/2015 8:24 AM VIDEO INTERN) Only the most recent of4 resultswithin the time period is included. Hemoglobin 10.8(L) 12.0 - 15.6 gm/dL 11/30/2015 8:42 AM VIDEO INTERN [facility] Hematocrit 31.3(L) 35.9 - 45.5 % 11/30/2015 8:42 AM VIDEO INTERN [facility] Blood BLOOD SPECIMEN / Unknown Lab Venipuncture / Unknown 11/30/2015 8:24 AM VIDEO INTERN 11/30/2015 8:35 AM VIDEO INTERN Pepe Hernandez MD LAB - HEMATOLOGY ORD ERABLES [facility] [address] [address] * TRANSFUSE RED BLOOD CELL UNIT(S) (11/28/2015 5:05 PM VIDEO INTERN) Maciel Brian MD NURSING - BLOOD PRO D TRANSFUSION * TRANSFUSE RED BLOOD CELL UNIT(S) (11/28/2015 2:43 PM VIDEO INTERN) Maciel Brian MD NURSING - BLOOD PRO D TRANSFUSION * GROSS EXAM PATHOLOGY (STL) (11/26/2015 5:50 PM VIDEO INTERN) Case Report Surgical Pathology Report Case: [id number] Authorizing Provider: Wilmer Pollard MD Collected: 11/26/2015 05:50 PM Ordering Location: [facility] Received: 11/27/2015 09:10 AM Pathologist: Ambika Pena MD Specimens: A) - Soft Tissue, Right knee hardware removal B) - Hardware 11/28/2015 2:03 PM VIDEO INTERN [facility] Final Diagnosis A. Soft tissue, right knee, excision: - Fibrotic tissue with collections of pigment containing macrophages, mild chronic inflammation, and foreign body giant cell reaction to polarizable material B. Hardware, right knee, removal: - Consistent with hardware (gross only) - See gross description KL/sm 11/28/2015 2:03 PM [facility] Gross Description Two specimens are received labeled Georgina Bishop. A - Knee tissue right knee, is received in formalin and contains multiple fragments of hobbs-beverly probably skin and soft tissue measuring in aggregate 9.0 x 7.0 x 0.5 cm. Both portions of tissue appear to be some sort of necrotic skin, hobbs-brown. Multiple customer sales representative sections are submitted in A1-A2. B [...] on this specimen Beard sz 5 right [id number]. Material is smooth and unremarkable. The specimen is submitted for gross exam only. LS/scs 11/28/2015 2:03 PM VIDEO INTERN [facility] Microscopic Description Histologic sections show fibrotic tissue with chronic inflammation, collections of lightly pigmented macrophages and foreign body giant cell reaction to polarizable foreign material. Significant acute inflammation is not identified. There is no evidence of malignancy. KL/sm 11/28/2015 2:03 PM VIDEO INTERN [facility] Pathology/Cytology SOFT TISSUE BIOPSY SPECIMEN / Unknown 11/26/2015 5:50 PM VIDEO INTERN 11/27/2015 9:10 AM VIDEO INTERN Miscellaneous samples (specimen) DEVICE / Unknown 11/26/2015 5:50 PM VIDEO INTERN 11/27/2015 9:10 AM VIDEO INTERN Wilmer Pollard MD LAB - PATHOLOGY/CYTO LOGY ORDERABLES [facility] [address] [address] * CULTURE FUNGUS OTHER+FUNGUS SMEAR (11/26/2015 2:04 PM VIDEO INTERN) Only the most recent of2 resultswithin the time period is included. Culture No Fungus Isolated in 4 Weeks LY 12/25/2015 8:41 AM [facility] Fungus Smear No yeast or hyphae seen 12/25/2015 8:41 AM [facility] Microbiology ENTIRE KNEE REGION / Unknown Collection / Unknown 11/26/2015 2:04 PM VIDEO INTERN 11/26/2015 2:24 PM VIDEO INTERN Wilmer Pollard MD LAB - MICROBIOLOGY O RDERABLES [facility] [address] [place] [address], [facility] [phone] * CULTURE TISSUE+GRAM STAIN (11/26/2015 2:04 PM VIDEO INTERN) Culture No Growth LY 12/03/2015 6:19 AM VIDEO INTERN [facility] Gram Stain Light Red blood cells 12/03/2015 6:19 AM VIDEO INTERN [facility] Gram Stain No organisms seen 12/03/2015 6:19 AM [facility] Microbiology ENTIRE KNEE REGION / Unknown Collection / Unknown 11/26/2015 2:04 PM VIDEO INTERN 11/26/2015 2:24 PM VIDEO INTERN Wilmer Pollard MD LAB - MICROBIOLOGY O JM Performing Organization Address City/[facility]/ZIP Co de Phone Number [facility] [address] [place] [address], [facility] [phone] * CULTURE ANAEROBE (11/26/2015 2:04 PM VIDEO INTERN) Only the most recent of2 resultswithin the time period is included. Culture No anaerobic organisms isolated LY 12/03/2015 8:29 AM VIDEO INTERN [facility] Microbiology ENTIRE KNEE REGION / Unknown Collection / Unknown 11/26/2015 2:04 PM VIDEO INTERN 11/26/2015 2:24 PM VIDEO INTERN Wilmer Pollard MD LAB - MICROBIOLOGY O JM Performing Organization Address [facility] Co de Phone Number [facility] [address] [address], [facility] [phone] * CULTURE WOUND+GRAM STAIN (11/26/2015 1:58 PM VIDEO INTERN) Culture No Growth LY 11/29/2015 8:58 AM VIDEO INTERN [facility] Microbiology ENTIRE KNEE REGION / Unknown Collection / Unknown 11/26/2015 1:58 PM VIDEO INTERN 11/26/2015 2:24 PM VIDEO INTERN Wilmer Pollard MD LAB - MICROBIOLOGY O JM Performing Organization Address City/[facility] Co de Phone Number [facility] [address] [place] [address], [facility] [phone] * CROSSMATCH RBC (11/26/2015 1:23 PM VIDEO INTERN) Only the most recent of2 resultswithin the time period is included. Unit Donor # [id number] 11/28/2015 11:39 PM [facility] Product Code E0336 11/28/2015 11:39 PM VIDEO INTERN [facility] Unit Description E0336 RBC, LR, CPD>AS1 11/28/2015 11:39 PM [facility] ABO Donor Type A 11/28/2015 11:39 PM VIDEO INTERN [facility] Rh Type Unit POS 11/28/2015 11:39 PM [facility] Crossmatch Interpretation Compatible 11/28/2015 11:39 PM [facility] Unit Status Transfused Unit 11/28/2015 11:39 PM [facility] Blood Bank BLOOD SPECIMEN / Unknown 11/26/2015 1:23 PM VIDEO INTERN 11/26/2015 1:38 PM VIDEO INTERN Aroldo Matthews DO LAB - BLOOD BANK OR DERABLES [facility] [address] [phone] * URINALYSIS ROUTINE W/REFLEX TO CULTURE (11/26/2015 1:18 PM VIDEO INTERN) Color UA Yellow Straw, Yellow, Dark Yellow 11/26/2015 2:30 PM [facility] Clarity UA Clear 11/26/2015 2:30 PM [facility] Specific [place] UA 1.008 1.005 - 1.030 11/26/2015 2:30 PM [facility] pH UA 6.0 5.0 - 8.0 pH 11/26/2015 2:30 PM [facility] Protein UA Negative Negative 11/26/2015 2:30 PM [facility] Blood UA Negative Negative 11/26/2015 2:30 PM [facility] Leukocyte UA Negative Negative 11/26/2015 2:30 PM [facility] Nitrite UA Negative Negative 11/26/2015 2:30 PM [facility] Glucose UA Negative Negative 11/26/2015 2:30 PM [facility] Ketone UA Negative Negative 11/26/2015 2:30 PM VIDEO INTERN [facility] Bilirubin UA Negative Negative 11/26/2015 2:30 PM [facility] Urobilinogen UA 0.2 0.1 - 1.0 EU/dL 11/26/2015 2:30 PM [facility] Reflex Status Culture not indicated 11/26/2015 2:30 PM VIDEO INTERN [facility] Urine URINE SPECIMEN OBTAINED VIA INDWELLING URINARY CATHETER / Unknown Collection / Unknown 11/26/2015 1:18 PM VIDEO INTERN 11/26/2015 2:24 PM VIDEO INTERN Wilmer Pollard MD LAB - URINALYSIS ORD ERABLES [facility] [address] [id number] * PERIPHERAL BLOCK (11/26/2015 12:48 PM VIDEO INTERN) Narrative Aroldo Matthews DO - 11/26/2015 12:48 PM VIDEO INTERN Aroldo Matthews DO 11/26/2015 12:48 PM Peripheral Block Patient Location: pre-op Pre Procedure Indication: at surgeon's request and post-operative analgesia Preanesthetic Checklist: patient identified, IV checked, site marked, risks and benefits discussed, surgical consent verified, monitors and equipment checked, pre-op evaluation done, timeout performed, informed consent obtained and questions answered / anesthesia plan accepted Monitors: Pulse Ox Patient Condition: sedated, meaningful contact maintained Patient Position: supine Procedure Laterality: right Block Performed: femoral Prep: Chloraprep Sterile Field: sterile field established and sterile gloves Skin Numbed with: lidocaine 1% Needle Type: nerve stimulator Needle Gauge: 21 Needle Length: 100 mm Ultrasound guided Technique: in plane Visualization: target ID'd, good spread of local around target and Ultrasound image in chart Block Agent: ropivacaine 0.2% 40 mL Epinephrine in Block Agent: none Other Additives: clonidine 100 mcg Injection was made incrementally with constant monitoring and aspirations every 5 mL's. Events blood not aspirated injection not painful no injection resistance no paresthesia no other events Block Performed by: dr matthews This block was performed for post operative analgesia at surgeon's request. Please see intraop navigator for medications administered. Sterile technique followed. Aroldo Matthews DO GENERAL ANESTHESIA ORDERABLES * HCG URINE QUALITATIVE - POINT OF CARE (IP) (11/26/2015 10:45 AM VIDEO INTERN) Only the most recent of2 resultswithin the time period is included. HCG Qual Urine Negative Negative [facility] POCT TESTING QC Verified Yes Yes [facility] POC T TESTING Urine specimen (specimen) URINE / Unknown 11/26/2015 10:45 AM VIDEO INTERN Wilmer Pollard MD LAB - POINT OF CARE ORDERABLES [facility] POCT TESTING [id number] [place] [address] * APHERESIS/TRANSFUSION ORDER (11/16/2015 9:05 PM VIDEO INTERN) Narrative 11/16/2015 9:05 PM VIDEO INTERN Ordered by an unspecified provider. Scanned Document NURSING - VITAL SIGN S AND ASSESSMENT * BLOOD TYPE VERIFICATION (11/15/2015 10:36 AM VIDEO INTERN) ABO A 11/15/2015 11:30 AM VIDEO INTERN [facility] Rh Type Positive 11/15/2015 11:30 AM VIDEO INTERN [facility] Blood Bank BLOOD SPECIMEN / Unknown Lab Venipuncture / Unknown 11/15/2015 10:36 AM VIDEO INTERN 11/15/2015 10:43 AM VIDEO INTERN Wilmer Pollard MD LAB - BLOOD BANK ORD ERABLES Performing Organization Address City/[facility]/ZIP Co de Phone Number [facility] [address] [place] [address], [facility] [phone] * TYPE + SCREEN PANEL (11/15/2015 9:54 AM VIDEO INTERN) ABO A 11/15/2015 11:15 AM VIDEO INTERN [facility] Rh Type Positive 11/15/2015 11:15 AM VIDEO INTERN [facility] Comment:History check perfor med. Retype required. Antibody Screen Negative 11/15/2015 11:15 AM VIDEO INTERN [facility] Blood Bank BLOOD SPECIMEN / Unknown Lab Venipuncture / Unknown 11/15/2015 9:54 AM VIDEO INTERN 11/15/2015 10:11 AM VIDEO INTERN Wilmer Pollard MD LAB - BLOOD BANK ORD ERABLES [facility] [address] [address], [facility] [phone] * CULTURE MSSA/MRSA (11/08/2015 10:41 AM VIDEO INTERN) Culture Negative for MRSA/MSSA LY 11/09/2015 3:06 PM VIDEO INTERN [facility] Microbiology SPECIMEN FROM NASAL FOSSAE / Unknown Collection / Unknown 11/08/2015 10:41 AM VIDEO INTERN 11/08/2015 10:54 AM VIDEO INTERN Wilmer Pollard MD LAB - MICROBIOLOGY O RDERABLES Performing Organization Address City/[facility]/ZIP Co de Phone Number [facility] [address] [place] [address], [facility] [phone] * NM BONE SCAN 3 PHASE (07/27/2015 [...] - 10.7 x10^9/L 07/27/2015 4:18 PM CDT [facility] WBC Corrected 4.4 - 10.7 x10^9/L 07/27/2015 4:18 PM CDT [facility] nRBC /100 WBC 07/27/2015 4:18 PM CDT [facility] Neutrophil % Manual 68 44 - 73 % 07/27/2015 4:18 PM CDT [facility] Lymphocytes % Manual 26 20 - 43 % 07/27/2015 4:18 PM CDT [facility] Monocytes % Manual 4(L) 5 - 13 % 07/27/2015 4:18 PM CDT [facility] Basophils % Manual 1 0 - 2 % 07/27/2015 4:18 PM CDT [facility] Band % Manual 1 0 - 11 % 07/27/2015 4:18 PM CDT [facility] Cells Counted 100 # cells 07/27/2015 4:18 PM CDT [facility] Platelet Estimation Adequate platelets Normal, Adequate platelets 07/27/2015 4:18 PM CDT [facility] RBC Morphology Normal 07/27/2015 4:18 PM CDT [facility] WBC Morph Normal 07/27/2015 4:18 PM CDT [facility] Blood BLOOD SPECIMEN / Unknown Lab Venipuncture / Unknown 07/27/2015 2:36 PM CDT 07/27/2015 3:15 PM CDT Pepito Solano MD LAB - HEMATOLOGY ORD ERABLES [facility] [address] [place] [address] * XR BONE LENGTH SCANOGRAM (07/27/2015 12:13 [...] INFLUENZA A+B ANTIGEN RAPID (01/30/2014 9:20 PM VIDEO INTERN) Influenza A Antigen Negative Negative 01/30/2014 9:41 PM VIDEO INTERN [facility] Influenza B Antigen Negative Negative 01/30/2014 9:41 PM VIDEO INTERN [facility] Microbiology NASOPHARYNGEAL SWAB / Unknown 01/30/2014 9:20 PM VIDEO INTERN 01/30/2014 9:27 PM VIDEO INTERN Roger Miranda MD LAB - MICROBIOLOGY ORDERABLES Performing Organization Address City/[facility]/ZIP Co de Phone Number [facility] [address] [facility] [place] [address] * EKG 15-LEAD (01/30/2014 9:17 PM VIDEO INTERN) Only the most recent of2 resultswithin the time period is included. Ventricular Rate 81 BPM CG MUSE Atrial Rate 88 BPM CG MUSE P-R Interval 118 ms CG MUSE QRS Duration ms 74 ms CG MUSE Q-T Interval ms 392 ms CG MUSE QTC Calculation (Bezet) 455 ms CG MUSE Calculated P [place] 58 degrees CG MUSE Calculated R [place] 20 degrees CG MUSE Calculated T [place] 55 degrees CG MUSE Interpretation EKG Normal sinus rhythm with sinus arrhythmia Normal ECG When compared with ECG of 12-JUL-2012 16:37, Premature atrial complexes are no longer Present Confirmed by VERENICE TRAN ([id number]) on 02/02/2014 4:46:23 PM CG MUSE 01/30/2014 9:17 PM VIDEO INTERN 02/02/2014 4:46 PM VIDEO INTERN Narrative CG MUSE - 02/02/2014 4:46 PM VIDEO INTERN Procedure Note Document, Scanned - 01/31/2014 7:42 AM CST Transcriptions Document, Scanned - 01/31/2014 7:42 AM CST Document, Scanned - 02/02/2014 4:46 PM CST Ken Copeland MD ECG ORDERABLES Performing Organization Address City/[facility]/ZIP Co de Phone Number [facility] * XR ANKLE 3+ VW RIGHT (04/22/2013 2:38 PM CDT) Anatomical Region Laterality Modality Lower Extremity Radiographic Radha ging 04/22/2013 2:49 PM CDT Impressions 04/22/2013 2:49 PM CDT Marked osteopenia, not significantly changed the prior examination of 2010. Narrative 04/22/2013 2:49 PM CDT EXAMINATION: RIGHT XR ANKLE 2 VW RIGHT*[id number] dated April 22, 2013 02:38:08 PM. HISTORY: [...] noted. No other imaging abnormality is appreciated. Procedure Note Anthony Lind - 04/22/2013 EXAMINATION: RIGHT XR ANKLE 2 VW RIGHT*[id number] dated April 22, 2013 02:38:08 PM. HISTORY: [...] 07/26/2012 12:36 PM CDT Margy Crowder MD 07/26/2012 12:36 PM CC: Right knee pain, [...] are worse. 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 Current Outpatient Prescriptions on File Prior to Encounter Medication Sig Dispense Refill enalapril (VASOTEC) 20 MG tablet Take 1 Tab by mouth once daily. 30 Tab 12 hydrocodone-acetaminophen solution (LORTAB) 7.5-500 MG/15ML solution Take [...] are worse. 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 Current Outpatient Prescriptions on File Prior to Encounter Medication Sig Dispense Refill enalapril (VASOTEC) 20 MG tablet Take 1 Tab by mouth once daily. 30 Tab12 hydrocodone-acetaminophen solution (LORTAB) 7.5-500 MG/15ML solutionTake 15 [...] Culture SEE BELOW 07/18/2012 5:21 AM CDT [facility] Comment: - Final - No growth Blood specimen (specimen) PERIPHERAL BLOOD / Unknown 07/12/2012 7:22 PM CDT 07/12/2012 7:34 PM CDT Jemima Chan MD LAB - MICROBIOLOGY ORDERABLES [facility] [address] [place], [place] [address], [facility] * DEXA BONE DENSITY AXIAL SKELETON (09/09/2011 1:53 PM CDT) Anatomical Region Laterality Modality Radiographic Radha ging 09/09/2011 2:17 PM CDT Impressions 09/09/2011 2:17 PM CDT Low bone mineral density for age. Narrative 09/09/2011 2:17 PM CDT Bone densitometry [employer] A ([id number]) Software version 13.0 [facility] Referring Physician: Xiomara Patient age: 16 years Gender: Female Height: 63 inches Weight: 105 pounds Indication: Bone tumor Technical quality: Adequate Left hip: Bone mineral content: 18.34 g Bone mineral density: 0.733 g/cm2 Z-score: -2.3 Lumbar spine: Bone mineral content: 34.50 g Bone mineral density: 0.755 g/cm2 Z-score: -2.8 Procedure Note Elisabeth Rodrigues MD - 09/09/2011 Bone densitometry [employer] A ([id number]) Software version 13.0 [facility] Referring Physician: Xiomara Patient age: 16 years Gender: Female Height: 63 inches Weight: 105 pounds Indication: Bone tumor Technical quality: Adequate Left hip: Bone mineral content: 18.34 g Bone mineral density: 0.733 g/cm2 Z-score: -2.3 Lumbar spine: Bone mineral content: 34.50 g Bone mineral density: 0.755 g/cm2 Z-score: -2.8 IMPRESSION Low bone mineral density for age. Chandni Marin BASKET OPERATOR-CLINICAL PROGRAM DIRECTOR DEXA ORDERABLES * XR LOWER EXTREM JNTS [...] GROSS EXAM PATHOLOGY (03/18/2011 1:30 PM CDT) [facility] Clinical History [facility] Comment: The patient is a 15-year-old girl with chronic tonsillitis and adenoiditis. Gross Description [facility] Comment: Submitted fresh in one container for gross examination only labeled with the patient's name, Georgina Bishop, and tonsils are two egg-shaped, pink-beverly, palatine tonsils measuring 2.7 x 1.7 x 1.5 cm and 2.7 x 1.7 x 1.5 cm weighing approximately 10 g combined. On cut surface, the tonsils have a cerebriform, yellow-beverly appearance. Sulfur granules are identified in one tonsil. No sections are taken. (CT/ld) Gross Diagnosis [facility] Comment: GROSS DIAGNOSIS: PALATINE TONSILS. This case has been personally reviewed and interpreted by the attending (teaching) pathologist. Retail Experience Specialist TERESO DECKER, [facility] Pathologist Zulema Gutierrez M.D. [facility] Electronically Signed By ZULEMA GUTIERREZ M.D . [facility] SPECIMEN FROM TONSIL / Unknown 03/18/2011 1:30 PM CDT 03/18/2011 2:12 PM CDT Pepito Vicente MD LAB - PATHOLOGY/CYTO LOGY ORDERABLES [facility] [address] [place] [address] * GROSS + MICRO EXAM (07/22/2010 3:45 PM CDT) Only the most recent of5 resultswithin the time period is included. [facility] Clinical History [facility] Comment: The patient is a 14-year-old girl with cholecystitis who underwent laparoscopic cholecystectomy. Gross Description [facility] Comment: Submitted fixed in formalin in one container for gross and microscopic examination, labeled with the patient's name, Georgina Bishop and gallbladder, is a 6.3 x 2.3 x 2 cm intact gallbladder with stapled cystic duct. The serosal surface is glistening purple-beverly. The gallbladder contains dark green viscid bile and four yellow choleliths ranging in size from 0.3 to 0.6 cm in greatest dimension. The gallbladder thickness is 0.2 cm. The mucosal surface has a dark green mossy appearance. [employer] sections from the gallbladder and cystic duct are submitted in cassette A1. (CT/nab) Microscopic Examination [facility] Comment: 1 H+E, 4 additional deeper sections. Sections show a gallbladder with features of chronic cholecystitis. Scattered chronic inflammatory cells are seen within the lamina propria and muscularis propria. Additional deeper levels of tissue show similar histological features. (CSA/GN/lw/ld) Diagnosis [facility] Comment: DIAGNOSIS: GALLBLADDER, CHOLECYSTECTOMY: -CHRONIC CHOLECYSTITIS. -CHOLELITHIASIS. This case has been personally reviewed and interpreted by the attending (teaching) pathologist. Retail Experience Specialist KYLAH DUMONT, [facility] Resident in Pathology Dianne Ingram M.D. [facility] Pathologist Blake hinojosa M.D. [facility] Electronically Signed By Blake hinojosa M.D. [facility] ENTIRE GALLBLADDER / Unknown 07/22/2010 3:45 PM CDT 07/23/2010 9:03 AM CDT Nic Whitman MD LAB - PATHOLOGY/CYTO LOGY ORDERABLES [facility] [place] [address] * US ABDOMEN LIMITED (07/20/2010 12:28 AM [...] Cholelithiasis. No cholecystitis. No biliary ductal dilatation. Aaashishp Shepherd DO US ORDERABLES * XR ABD [...] CDT) Lipase 57 23 - 300 Units/L [facility] BLOOD SPECIMEN / Unknown 07/19/2010 6:25 PM CDT 07/19/2010 6:31 PM CDT Nikita Brewster MD LAB - CHEMISTRY ORD ERABLES Performing Organization Address City/[facility] Co de Phone Number [facility] [address] [place] [phone] * AMYLASE BLOOD (07/19/2010 6:25 PM CDT) Pathologist [facility] Amylase 46 30 - 100 Units/L [facility] BLOOD SPECIMEN / Unknown 07/19/2010 6:25 PM CDT 07/19/2010 6:31 PM CDT Nikita Brewster MD LAB - CHEMISTRY ORD ERABLES Performing Organization Address [facility] Co de Phone Number [facility] [address] [place] [phone] * (ABNORMAL) URINALYSIS ROUTINE AUTO (07/19/2010 6:00 PM CDT) Color UA YELLOW [facility] Character UA CLOUDY [facility] Specific [place] UA >=1.030 1.003 - 1.030 [facility] pH UA 6.0 5.0 - 8.0 [facility] Protein UA TRACE Negative [facility] Glucose UA NEGATIVE Negative gm/dl [facility] Ketone UA 3+(AA) Negative [facility] Blood UA NEGATIVE Negative [facility] Bilirubin UA 2+ Negative [facility] Reducing Substances UA NEGATIVE Negative % [facility] WBC UA 0-5 /HPF [facility] Epithelial Cell UA 15-20 /HPF [facility] Bacteria UA Trace [facility] Leukocyte UA NEGATIVE [facility] Nitrite UA NEGATIVE [facility] Urobilinogen UA 0.2 <=1.0 EU/dl [facility] URINE SPECIMEN OBTAINED BY CLEAN CATCH PROCEDURE / Unknown 07/19/2010 6:00 PM CDT 07/19/2010 6:19 PM CDT Nikita Brewster MD LAB - URINALYSIS OR DERABLES Performing Organization Address City/State/[facility] Co de Phone Number [facility] [address] [place] [address] Care Teams Quality Control Inspector Heading Relationship Specialty Start Date End Date Lilly Pina APRN-CLINICAL PROGRAM DIRECTOR [address] [place] [address] [address] [place] [address] PCP - General Nurse Practitioner 06/13/22
--- OUTSIDE RECORDS SUMMARY | 2025-02-14 07:22 | XMS_ITS ---
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 Past Treatment and Therapy Plans No past plan information found. Lifetime Dose Tracking * Chemical Lifetime Dose Automatic Entry Manual Entr y DLP 1,441 mGycm 1,441 mGycm 0 mGycm
--- OUTSIDE RECORDS SUMMARY | 2025-02-14 07:22 | XMS_ITS | Clinical Summary ---
Author Organization [facility] Address [address] [place] [address] Care Team Providers Care Criminal Justice Department Chair Name Role Phone Lilly Pina FORMING MACHINE UPKEEP MECHANIC HELPER Unavailable [phone] Lilly Pina FORMING MACHINE UPKEEP MECHANIC HELPER Unavailable [phone] Edwardo Jane Primary Care Provider [phone] Allergies Active Allergy Reactions Criticality Noted Date [...] Chronic tonsillitis and adenoiditis 03/18/2011 Overview (08/28/2022): Encounters Date Type Department Care Team Description 01/12/2025 Orders Only [facility] Orthopaedic Surgery [address] [facility] [address] [place] [address] [place] [address] Gerard Kumar MD Osteosarcoma of femur, right (HCC) (Primary Dx) from Last 3 Months Immunizations Immunization Administration Dates Next Due DTaP [...] Comments Cardiomyopathy (HCC) CHF (congestive heart failure) (HCC) Family History Medical History Relation Name [...] on file Legal Sex Female 2:13 AM MANAGER STORAGE Gender Identity Not on file Sexual Orientation Not on file Obstetrics History Last Filed Vital Signs Vital Sign Reading Time Taken Comments Blood Pressure 95/54 12/19/2022 1:00 AM MANAGER STORAGE Pulse 108 03/09/2023 2:57 PM CDT Temperature 37.6 C (99.6 F) 12/18/2022 5:23 PM MANAGER STORAGE Respiratory Rate 18 03/09/2023 2:57 PM CDT [...] Depression Screening 1993 Hepatitis C Screening 1993 Varicella Vaccines (1 of 2 - 13+ 2-dose series) 2006 Regular Well Visit/Exam 18-64 2011 Pneumococcal vaccine <65 (1 of 2 - PCV) 2012 Covid-19 Vaccine (4 - season) 2024 05/14/2022, 03/04/2021, 02/08/2021 Influenza Vaccine (#1) 2024 11/04/2021, 2020 DTaP/Tdap/Td Vaccine (9 - Td or Tdap) 11/07/2031 11/07/2021, 07/14/2016, 08/11/2007, Additional history exists Hepatitis B Screening Completed 08/18/2003 , 1993, 1993 HPV Vaccines Aged Out No longer eligi ble based on patient's age to complete this topic Insurance CHOICE PLUS CHOICE PLUS Care Teams Criminal Justice Department Chair Relationship Specialty Start Date End Date Edwardo Jane PA [address] [place] [address] PCP - General Family Medicine 12/26/22 Lilly Pina NP Nurse Practitioner 04/18/22 Lilly Pina NP Nurse Practitioner 12/20/21
--- NOTE | 2025-02-14 08:08 | P.HP_ITS ---
History of Present Illness History of Present Illness Consent: Risks, benefits, and alternatives have been discussed and questions answered. Patient agrees to proceed with procedure. Chief complaint: Chronic pain syndrome, chronic postsurgical Narrative: Georgina Avila is a 29 year old female with chronic, recalcitrant and disabling low back and lower extremity pain secondary to lumbosacral radiculopathy, osteoarthritis chronic postsurgical with failure to respond to aggressive conservative measures including PT, oral and topical analgesics, opioid and nonopioid analgesics, rest, time and activity/behavioral modification over the past 6-12 months considering permanent placement of intrathecal pain pump who presents for single bolus epidural opioid trial with hydromorphone (intrathecal pain pump trial) under fluoroscopic guidance with contrast control. Review of Systems Review of Systems: Patient denies any new infectious, allergic, cardiopulmonary, neurologic or constitutional symptoms or changes in activity tolerance or exercise capacity including new or progressive SOB/BRAGG, peripheral edema, productive cough, dysuria, nausea/vomiting, diarrhea, weight change, fevers/chills/night sweats, new or progressive neurologic deficit, cognitive or mood changes since last seen, except as documented in the HPI. [facility] Past Medical History Medical History (Updated 01/10/25 @ 14:19 by Lilly Pina APRN) CHF (congestive heart failure), NYHA class I Arthritis Allergies Chemotherapy induced cardiomyopathy Followed by compliance director at [facility] until 2019. Previously on enalapril. Osteosarcoma of right femur (2004) Surgical History Surgical History History of section (12/13/21) History of cholecystectomy History of orthopedic surgery 5 surgeries on the right lower extremity including right knee replacement related to osteosarcoma diagnosed at the age of 10. Family History Family History Father Diabetes mellitus Heart disease Mother Depression Grandparent Breast cancer Grandparent Diabetes mellitus Hypertension Heart disease Other Family history non-contributory Social History Social History Social History: The patient lives with her and son in [place]. Nonsmoker. No alcohol or illicit substance abuse. She designates her Jeffrey or her mother Amada Menezes as her surrogate decision makers. Code status: Full code. Smoking status: Never smoker Second hand tobacco smoke exposure: No Alcohol intake: unknown Drinks per week: 2 Substance use: never Substance use type: does not use Do You Feel Safe in your Home?: Yes Lack of Transportation: YES Lack of Food: Never True Current Housing: I Have Housing Concerned About Future Housing: No Difficulty Paying Gas/Electric Bills: YES Difficulty Paying for Meds: No Currently Unemployed: No Education: Associate Degree Difficulty w/ Childcare or Family Care: No Living arrangements: with family Spiritual care concerns: No Meds Home Medications and Allergies Home Medications ?Medication ?Instructions ?Recorded ?Confirmed ?Type carvedilol 3.125 mg tablet 3.125 mg PO Q12H 09/14/23 02/14/25 History sacubitril 24 mg-valsartan 26 mg 1 tablet PO BID 09/14/23 02/14/25 History tablet (Entresto) gabapentin 300 mg capsule 600 mg (2 x 300 mg) PO QHS #180 04/12/24 02/14/25 Rx caps ropinirole 0.5 mg tablet See Rx Instructions .Route 10/11/24 02/14/25 Rx .COMPLEX #180 tabs naloxone 4 mg/actuation nasal spray 4 mg intranasal Q2-3M PRN opioid 11/07/24 02/10/25 Rx overdose #2 ea escitalopram oxalate 10 mg tablet See Rx Instructions .Route 11/08/24 02/14/25 Rx .COMPLEX #90 tabs alprazolam 0.5 mg tablet 0.5 mg PO BID PRN anxiety #60 tabs 01/31/25 02/14/25 Rx Allergies Allergy/AdvReac Type Severity Reaction Status Date / Time ceftazidime Allergy Hives Verified 02/14/25 07:28 Vital Signs Vital Signs - 24 hr 02/14/25 07:38 Temperature 97.8 F Pulse Rate 115 H Respiratory Rate 20 Blood Pressure 119/86 Pulse Oximetry 99 Oxygen Delivery Room Air Exam Narrative: The patient's physical exam is essentially unchanged from prior examination on 01/02/2025. Specifically, patient demonstrates normal lung capacity, tidal volume and respiratory rate without wheezes, crackles, rales or rubs. Heart rate and rhythm are regular without murmurs, gallops or rubs. No JVD. Pulses 2+ globally without increasing peripheral edema. AAOx3 with no evidence of confusion, intoxication or altered mental state, NC/AT without acute distress or altered consciousness. Speech, cognition, mood, insight and judgment at baseline and within normal limits. Assessment and Plan Assessment and plan (1) Right knee pain: Code(s): M25.561 - Pain in right knee Status: Acute (2) Chronic pain: Code(s): G89.29 - Other chronic pain Status: Acute (3) Post-operative pain: Code(s): G89.18 - Other acute postprocedural pain Status: Acute (4) Back pain: Code(s): M54.9 - Dorsalgia, unspecified Status: Acute Plan Proceed as planned with single bolus epidural opioid trial with hydromorphone (intrathecal pain pump trial) under fluoroscopic guidance with contrast control.
--- NOTE | 2025-02-14 08:13 | WPDHPUPDATE1 ---
History and Physical Update Update Date/Time: 02/14/25 08:13 History and Physical has been reviewed, including an updated exam of the patient. There are NO changes in the patient's condition. Risks, benefits, and alternatives have been discussed and questions answered. Patient agrees to proceed with procedure.
--- NOTE | 2025-02-14 08:15 | P.OP_ITS ---
Procedure Note - Detailed Date of Procedure 02/14/25 Pre-op Diagnosis Chronic pain syndrome, chronic postsurgical Post-op Diagnosis Same Procedure Performed Thoracolumbar Interlaminar Epidural Needle Placement at [T11-12] for Single Prognostic Epidural Bolus of Opioid Analgesic (Pump Trial) under Fluoroscopic Guidance with Contrast Control. Surgeon Yuri Aguilar MD Data Warehouse Manager None. Anesthesia Local Description of Procedure INFORMED CONSENT: Risks, benefits and alternatives to the procedure were discussed in detail with the patient who expressed explicit understanding and consent to proceed. Patient was informed verbally and in written form regarding the risks associated with the procedure including the low risk of inadvertent dural puncture resulting in CSF leak and subsequent acute or chronic spinal headache, serious systemic or local infection requiring additional surgery, bleeding/bruising or blood clot, allergic reaction, nerve /spinal cord or organ injury resulting in temporary or permanent weakness, paralysis, numbness, pain, deformity or bowel or bladder incontinence, procedural site pain or discomfort, worsening pain and/or mobility, failure to treat and/or disfigurement, as well as the risk of opioid overdose resulting in sedation, cognitive impairment, hypoxia, coma, , or under dose causing withdrawal symptoms or untreated pain. The patient expressed explicit understanding and consent to proceed despite the potential risks with the agreement that potential benefits far outweigh potential for harm. All materials required for the procedure were available prior to procedure start. Site and side were marked prior to procedure and confirmed in the presence of the patient. PROCEDURE IN DETAIL: The patient was brought to the procedural suite and placed in the prone position. Patient was made comfortable with use of pillows under the head/chest, hips and ankles. Appropriate monitoring initiated. Skin overlying the injection site was prepared broadly with ChloraPrep applicator and draped in a sterile manner. Aseptic technique was employed throughout. The endplates of the vertebral body at the site of interest were aligned in the AP view. Slight caudal tilt and ipsilateral oblique angulation was utilized to optimize visualization of the targeted posterior intervertebral foramen at T12-L1. Local anesthesia was established by infiltration with approximately 5 mL of 0.5% lidocaine via a 1-1/2 inch 27-gauge needle. A 20-gauge 4-inch Tuohy epidural needle was advanced intermittently until appropriate loss of resistance to air was identified via plastic loss of resistance syringe. Lateral view was used to confirm the appropriate positioning of the needle tip within the posterior epidural space. In the AP view, 2.0 mL of Omnipaque 300 contrast medium was injected after negative aspiration for CSF, blood or other bodily fluid, showing appropriate epidural spread of contrast without evidence of intravascular or intrathecal placement. A 3.0ml test dose of 1.5% lidocaine with epinephrine was injected via the epidural needle and patient was monitored for no less than 2 minutes to assess for signs intrathecal or intravascular placement. Blood Pressure, heart rate, lower extremity sensation and motor strength were tested and compared to baseline without significant change. 1 ml of a 0.25 mg/ml aqueous solution of preservative free hydromorphone labeled for IT/Epidural use was injected after negative repeat aspiration. Appropriate spread of the injectate was confirmed with washout of previously injected contrast. No parasthesias were elicited. Needle was removed intact and without difficulty. Site was cleaned and sterile bandage was applied. The patient tolerated the procedure well with no evidence of complication. Images were saved and documented in the patient chart. Patient's skin was cleaned and sterile bandage applied. The patient tolerated the procedure well. The patient was transported to the recovery area in stable condition where they were observed and monitored (RR, HR, BP, O2 Sats, Pain level) for an appropriate amount of time prior to discharge (no less than 1 hour), without evidence of complication. After approximately one hour, the patient was evaluated for neurologic deficit, pain relief and side effects with results as below. Patient instructed to remain in the presence of a responsible adult to monitor for the next 72 hours. The patient was instructed to avoid excessive activity for the next 48 hours, including climbing and frequent use of stairs. Showers only for 48 hours. They were instructed not to drive or operate heavy machinery for 72 hours. They are to monitor for pruritus, sedation/confusion, severe headaches, fevers, chills, night sweats, erythema/swelling at the site or any other signs of infection, bleeding/bruising, bowel or bladder changes as well as new pain, weakness or numbness in the upper or lower extremity. Should they notice these changes, they are instructed to call our office immediately or report directly to the nearest Emergency Department if no answer or if after posted office hours. COMPLICATIONS: None COMMENTS: Total dose: 0.25 mg hydromorphone. No side effects of nausea, pruritus, somnolence, hallucinations noted. CONTRAST WASTED: 26mL Omnipaque 300. Complications No immediate complications Condition Stable Disposition Same day ( Extended stay greater than 1 hour.) [facility] Billing Surgery - Charge Forward: Surgery Billing
[2025-02-14] MEDS: LIDOCAINE 1% PF INJ 5 ML VIAL INFILTRATE (08:35)
[2025-02-14] MEDS: LIDOCAINE 1.5% 5 ML INFILTRATE (08:39)
--- NOTE | 2025-02-14 08:41 | SUR.OPER ---
08:32 0.25mg/ml HYDROmorphone in 2ml PF NS. Total given: 1ml Total wasted: 1ml (Dr Aguilar)
[2025-02-14] MEDS: ONDANSETRON INJ 4 MG/2 ML VIAL IV PUSH (09:31)
== END 2025-02-14 09:45 | disposition home or self-care (01) ==
PROVIDERS: PCP Nurse Practitioner Adult Health; Visit Provider Anesthesiology Pain Medicine
PROC: (CPT 62321; principal; 2025-02-14 08:00)
DX: G89.4 Chronic pain syndrome (principal); G89.18 Other acute postprocedural pain; M54.9 Dorsalgia, unspecified; M25.561 Pain in right knee
CPT/HCPCS: 62321; 99199